=== PATIENT | female | born 1965 | race Caucasian/White ===

== ENCOUNTER 2017-12-31 15:54 | Outpatient (REF) | payer MEDICAID, SELFPAY ==
[2017-12-31 20:58] LABS: ALT 169 U/L (12-78); AST 60 U/L (15-37); Albumin 4.2 g/dL (3.4-5.0); Alkaline Phosphatase 85 U/L (46-116); Anion Gap 7.9 mmol/L (3-11); BUN 18 mg/dL (7-18); Bilirubin, Total 0.3 mg/dL (0.2-1.0); CO2 30.1 mmol/L (21.0-32.0); CREATININE 0.74 mg/dL (0.55-1.02); Calcium 9.5 mg/dL (8.5-10.1); Chloride 102 mmol/L (98-107); Glucose 135 mg/dL (70-100); Potassium 4.2 mmol/L (3.5-5.1); Sodium 140 mmol/L (136-145); TSH 0.74 uIU/mL (0.358-3.74)
== END 2017-12-31 16:14 ==
LOC: NCHCN 15:54
PROVIDERS: PCP Physician Assistant Medical; Visit Provider Physician Assistant Medical
DX: E03.9 Hypothyroidism, unspecified (principal); K76.0 Fatty (change of) liver, not elsewhere classified
CPT/HCPCS: 80053; 84443

== ENCOUNTER 2018-02-12 14:30 | Outpatient (REF) | payer MEDICAID, SELFPAY ==
[2018-02-12 22:40] LABS: ALT 134 U/L (12-78); AST 50 U/L (15-37); Albumin 4.3 g/dL (3.4-5.0); Alkaline Phosphatase 75 U/L (46-116); Bilirubin, Direct 0.11 mg/dL (0.00-0.20); Bilirubin, Total 0.4 mg/dL (0.2-1.0); Total Protein 7.2 g/dL (6.4-8.2)
== END 2018-02-12 14:50 ==
LOC: NCHCN 14:30
PROVIDERS: PCP Physician Assistant Medical; Visit Provider Physician Assistant Medical
DX: K76.0 Fatty (change of) liver, not elsewhere classified (principal); E78.2 Mixed hyperlipidemia
CPT/HCPCS: 80076

== ENCOUNTER 2018-04-15 12:46 | Outpatient (REF) | payer MEDICAID, SELFPAY ==
[2018-04-15 21:13] LABS: ALT 171 U/L (12-78); AST 61 U/L (15-37); Albumin 4.5 g/dL (3.4-5.0); Alkaline Phosphatase 96 U/L (46-116); Anion Gap 8.9 mmol/L (3-11); BUN 22 mg/dL (7-18); Bilirubin, Total 0.4 mg/dL (0.2-1.0); CO2 31.1 mmol/L (21.0-32.0); CREATININE 1.03 mg/dL (0.55-1.02); Calcium 10.1 mg/dL (8.5-10.1); Chloride 101 mmol/L (98-107); Cholesterol 230 mg/dL (50-200); Estimated GFR 56.27 (mL/min/1.73m2); Glucose 148 mg/dL (70-100); HDL Cholesterol 55 mg/dL (40-60); LDL CHOLESTEROL 142 mg/dL (<100); Potassium 4.7 mmol/L (3.5-5.1); Sodium 141 mmol/L (136-145); Total Protein 7.9 g/dL (6.4-8.2); Triglyceride 187 mg/dL (30-150)
== END 2018-04-15 13:06 ==
LOC: NCHCN 12:46
PROVIDERS: PCP Physician Assistant Medical; Visit Provider Physician Assistant Medical
DX: E78.2 Mixed hyperlipidemia (principal)
CPT/HCPCS: 80053; 80061; 83721

== ENCOUNTER 2018-07-27 15:21 | Outpatient (REF) | payer MEDICAID, SELFPAY | END 2018-07-27 15:41 | LOC: NCHCN 15:21 | PROVIDERS: PCP Physician Assistant Medical; Visit Provider Nurse Practitioner Family | DX: J02.9 Acute pharyngitis, unspecified (principal) | CPT/HCPCS: 87070 ==

== ENCOUNTER 2018-09-23 17:02 | Outpatient (REF) | payer MEDICAID, SELFPAY ==
[2018-09-23 20:21] LABS: ALT 199 U/L (12-78); AST 116 U/L (15-37); Albumin 4.4 g/dL (3.4-5.0); Alkaline Phosphatase 103 U/L (46-116); Anion Gap 9.9 mmol/L (3-11); BUN 17 mg/dL (7-18); Bilirubin, Total 0.3 mg/dL (0.2-1.0); CO2 26.1 mmol/L (21.0-32.0); CREATININE 0.76 mg/dL (0.55-1.02); Chloride 101 mmol/L (98-107); Glucose 205 mg/dL (70-100); Potassium 4.5 mmol/L (3.5-5.1); Sodium 137 mmol/L (136-145); TSH 0.99 uIU/mL (0.358-3.74); Total Protein 7.3 g/dL (6.4-8.2)
[2018-09-25 13:29] LABS: GGT 304 U/L (5-55)
== END 2018-09-23 17:22 ==
LOC: NCHCN 17:02
PROVIDERS: PCP Physician Assistant Medical; Visit Provider Physician Assistant Medical
DX: E03.9 Hypothyroidism, unspecified (principal); I10 Essential (primary) hypertension; K76.0 Fatty (change of) liver, not elsewhere classified
CPT/HCPCS: 80053; 82977; 84443

== ENCOUNTER 2019-03-11 01:33 | Outpatient (CLI) | payer MEDICAID, SELFPAY ==
--- NOTE | 2019-03-11 08:24 | DI.MAMMO_ITS ---
EXAM: MG MAMMO SCREENING CLINICAL HISTORY: SCREENING, HEALTH MAINTENANCE EXAM, Z00.8. TECHNIQUE: Bilateral full field digital CC and MLO mammographic images were obtained with 3D tomosyn thesis and utilizing computer aided detection (CAD). COMPARISON: [id number] FINDINGS: Masses/Architectural Distortion: None seen. Microcalcifications: No suspicious pleomorphic-type are seen. Skin Thickening/Nipple Retraction: None. IMPRESSION: 1. No significant interval change with no specific features of malignancy noted. 2. Unless there is more urgent need, screening mammography is recommended, as per [employer] guidelines. BI-RADS Cat 1 - Negative Breast Density - Category B - Scattered areas of fibroglandular density A negative radiographic report should not delay biopsy if a dominant or clinically suspicious mass is present. Up to ten percent of cancers are not identified on mammography. A negative report may reinforce clinical impression. Adenosis and dense breasts may obscure an underlying neoplasm. False positive reports average 6 to 10%. Patient will receive a letter notifying them of these results.
== END 2019-03-11 01:53 ==
PROVIDERS: PCP Physician Assistant Medical; Visit Provider Physician Assistant Medical
DX: Z12.31 Encounter for screening mammogram for malignant neoplasm of breast (principal)
CPT/HCPCS: 77063; 77067

== ENCOUNTER 2019-09-08 19:02 | Outpatient (REF) | payer MEDICAID, SELFPAY ==
[2019-09-08 20:34] LABS: ALT 146 U/L (14-59); AST 62 U/L (15-37); Albumin 4.6 g/dL (3.4-5.0); Alkaline Phosphatase 90 U/L (46-116); Anion Gap 4.7 mmol/L (3-11); BUN 18 mg/dL (7-18); Bilirubin, Total 0.5 mg/dL (0.2-1.0); CO2 31.3 mmol/L (21.0-32.0); CREATININE 0.92 mg/dL (0.55-1.02); Calcium 9.7 mg/dL (8.5-10.1); Calculated LDL 118 mg/dL (<100); Chloride 103 mmol/L (98-107); Cholesterol 206 mg/dL (<200); Glucose 142 mg/dL (74-106); HDL Cholesterol 47 mg/dL (40-60); Sodium 139 mmol/L (136-145); TSH 0.58 uIU/mL (0.36-3.74); Total Protein 7.3 g/dL (6.4-8.2); Triglyceride 209 mg/dL (<150)
== END 2019-09-08 19:22 ==
LOC: NCHCN 19:02
PROVIDERS: PCP Physician Assistant Medical; Visit Provider Physician Assistant Medical
DX: E11.9 Type 2 diabetes mellitus without complications (principal); I10 Essential (primary) hypertension; K75.81 Nonalcoholic steatohepatitis (NASH)
CPT/HCPCS: 80053; 80061; 84443

== ENCOUNTER 2020-05-03 16:17 | Outpatient (REF) | payer MEDICAID, SELFPAY ==
[2020-05-05 13:42] LABS: COVID-19 RT-PCR UVMMC Result Negative (Negative)
== END 2020-05-03 16:37 ==
LOC: NCHCN 16:17
PROVIDERS: PCP Physician Assistant Medical; Visit Provider Physician Assistant Medical
DX: Z11.52 Encounter for screening for COVID-19 (principal)
CPT/HCPCS: U0003

== ENCOUNTER 2020-06-27 15:10 | Outpatient (REF) | payer MEDICAID, SELFPAY ==
[2020-06-27 15:36] LABS: Calculated LDL 117 mg/dL (<100); Cholesterol 213 mg/dL (<200); HDL Cholesterol 49 mg/dL (40-60); Triglyceride 237 mg/dL (<150)
[2020-06-27 16:57] LABS: Abs Immature Grans 0.02 10^3/uL (0.0-0.06); Absolute Basophil Count 0.04 10^3/uL (0.0-0.2); Absolute Eosinophil Count 0.27 10^3/uL (0.0-0.7); Absolute Lymphocyte Count 1.48 10^3/uL (1.2-3.4); Absolute Monocyte Count 0.23 10^3/uL (0.1-0.8); Absolute Neutrophil Count 3.04 10^3/uL (1.2-6.7); Basophils % 0.8; Eosinophils % 5.3; HGB 14.1 g/dL (11.2-15.7); Immature Grans % 0.4; Lymphocytes % 29.1; MCH 29.4 pg (27.0-33.0); MCHC 34.4 % (32.0-36.0); MCV 85.4 fL (80-95); MPV 10.2 fL (8.0-11.0); Monocytes % 4.5; Neutrophils % 59.9; Nucleated RBC 0 %; Platelet Count 289 10^3/uL (130-400); RDW 12.5 % (11.7-14.6); RDW-SD 39.4 fL; WBC 5.08 10^3/uL (4.4-10.8)
[2020-06-27 17:08] LABS: ALT 169 U/L (14-59); AST 108 U/L (15-37); Albumin 4.3 g/dL (3.4-5.0); Alkaline Phosphatase 106 U/L (46-116); Anion Gap 13.4 mmol/L (3-11); BUN 17 mg/dL (7-18); Bilirubin, Total 0.5 mg/dL (0.2-1.0); CO2 26.6 mmol/L (21.0-32.0); CREATININE 0.8 mg/dL (0.55-1.02); Calcium 9.9 mg/dL (8.5-10.1); Chloride 99 mmol/L (98-107); Glucose 214 mg/dL (74-106); Potassium 4.8 mmol/L (3.5-5.1); Sodium 139 mmol/L (136-145); Total Protein 7.4 g/dL (6.4-8.2)
== END 2020-06-27 15:11 | disposition home or self-care (01) ==
LOC: NCHCN 15:10
PROVIDERS: PCP Physician Assistant Medical; Visit Provider Physician Assistant Medical
DX: K75.81 Nonalcoholic steatohepatitis (NASH) (principal); E11.9 Type 2 diabetes mellitus without complications; R53.83 Other fatigue
CPT/HCPCS: 80053; 80061; 84443; 85025

== ENCOUNTER 2020-11-14 14:40 | Outpatient (REF) | payer MEDICAID, SELFPAY ==
[2020-11-14 21:43] LABS: Bilirubin Negative (Negative); Blood Negative (Negative); Clarity Clear (Clear); Glucose Negative (Negative); Ketones Negative (Negative); Leukocyte Esterase Negative (Negative); Nitrite Negative (Negative); Specific Gravity 1.025 (1.005-1.025); Urobilinogen 0.2 EU/dL (Up TO 0.2)
[2020-11-14 21:53] LABS: Bacteria Rare HPF (Negative); C & S Indicated? No; Casts Negative LPF (Negative); Crystals Negative HPF (Negative); Epithelial Cells Rare HPF (Negative); Mucus Negative (Negative); RBC Negative HPF (0-2); WBC Negative HPF (0-5)
== END 2020-11-14 14:41 | disposition home or self-care (01) ==
LOC: NCHCN 14:40
PROVIDERS: PCP Physician Assistant Medical; Visit Provider Physician Assistant Medical
DX: R30.0 Dysuria (principal)
CPT/HCPCS: 81003; 81015

== ENCOUNTER 2021-02-01 04:31 | Emergency (ER) | payer MEDICAID, SELFPAY ==
[2021-02-01] VITALS (41 sets, daily range): BP systolic 89–128; BP diastolic 58–103; PULSE 81–105; RESP 12–26; TEMP 36.5–36.7; O2SAT 93–98
--- NOTE | 2021-02-01 04:15 | RT.EKG_ITS ---
APPROVED REPORT Exam: Resting ECG Reason for Exam: fall, chest pain Patient Location: E HR:94 bpm ECG Measurements Heart Rate 94 AXIS KS 146 P 22 QRSd 88 QRS -31 QT 362 T [id number] QTc 454 Conclusion Sinus rhythm...normal P axis, V-rate 60- 99 Inferior infarct, old...Q >35mS, II III aVF Baseline artifact Diffuse non-specific ST changes No STEMI
--- NOTE | 2021-02-01 04:45 | DI.RAD_ITS ---
Exam(s) XR KNEE LT 3V AP,LAT,ELENA EXAM: XR KNEE LT 3V AP,LAT,ELENA CLINICAL HISTORY: trauma. TECHNIQUE: 2D digital imaging was performed. COMPARISON: No exams were available for comparison FINDINGS: AP and lateral portable views of the left knee reveal no evidence of obvious fracture but there is a joint effusion which signifies a probable internal derangement. No obvious degenerative changes. No radiopaque foreign body. IMPRESSION: DATA REPOSITORY: RADIATION DOSE DELIVERED:
--- NOTE | 2021-02-01 04:45 | DI.CT_ITS ---
Exam(s) CT HEAD CERVICAL SPINE WO EXAM: CT HEAD CERVICAL SPINE WO CLINICAL HISTORY: syncope/fall; neck pain. TECHNIQUE: Imaging Protocol: Axial computed tomography images with coronal and sagittal reformatted images were created and reviewed COMPARISON: No exams were available for comparison FINDINGS: BRAIN: There are no skull fractures nor fluid in the visualized paranasal sinuses. There is no evidence of intracranial hemorrhage, mass effect, or shift of midline structures. There are no extra-axial fluid collections. The ventricles are not enlarged or shifted and there is no blo od within the ventricular system nor within the basal cisterns. CERVICAL SPINE: There is no evidence of fracture nor listhesis. No significant prevertebral soft tissue swelling. Chronic degenerative disc disease changes are noted at C3-4 and C5-6 levels. Posterior osteophytic r idging at these levels in addition to advanced disc space narrowing. Other disc spaces exhibit mayela l height. There is no significant facet joint malalignment. No significant osseous lesions evident. IMPRESSION: No acute intracranial findings on this noninfused CT scan of the brain. No evidence of cervical spine fracture, malalignment, nor acute compromise of the cervical spinal can al. Multilevel chronic degenerative disc disease. RADIATION DOSE DELIVERED: 1,281.08mGy.cm Total DLP DATA REPOSITORY: All CT scans at this facility are submitted to the National Radiology Data Registry (NRDR) Dose Index Registry (DIR) with the [employer] ([employer]). RADIATION OPTIMIZATION: All CT scans at this facility use at least one of these dose optimization te chniques: automated exposure control; mA and/or kV adjustment per patient size (includes targeted exa ms where dose is matched to clinical indication); or iterative reconstruction.
--- NOTE | 2021-02-01 04:45 | DI.RAD_ITS ---
Exam(s) XR TIB/FIB LT EXAM: XR TIB/FIB LT CLINICAL HISTORY: trauma. TECHNIQUE: 2D digital imaging was performed. COMPARISON: No exams were available for comparison FINDINGS: Limited AP and lateral portable views reveal no evidence of fractures. No radiopaque foreign body. IMPRESSION: DATA REPOSITORY: RADIATION DOSE DELIVERED:
--- NOTE | 2021-02-01 04:45 | W.ED.GENAD ---
Discharge Plan Disposition Patient Disposition: HOME Condition: Stable Discharge Details Clinical Impression: Syncope, Abdominal cramping, Injury of knee, left, Hypomagnesemia Primary Care Provider: Ramona Cruz ED Provider: Shaun Nagy Home Meds and New Rx's Prescriptions: Continued multivitamin [Daily Multiple] 1 EACH tablet 1 tab PO DAILY RF: 0 fluticasone propion-salmeterol [Advair Diskus] 1 EACH blister with device 1 puff Inhalation BID PRNRF: 0 loratadine [Claritin RediTabs] 10 MG tablet,disintegrating 10 mg PO DAILY RF: 0 levothyroxine [Synthroid] 100 MCG tablet 88 mcg PO DAILY RF: 0 lisinopril 10 MG tablet 10 mg PO DAILY RF: 0 gabapentin 300 MG capsule 300 mg PO BID RF: 0 metformin [Glucophage XR] 500 MG tablet extended release 24 hr 500 mg PO BID RF: 0 rosuvastatin [Crestor] 10 MG tablet 10 mg PO DAILY RF: 0 Fish Oil 1 EACH capsule 2 ea PO DAILY RF: 0 Latuda 40 MG tablet 40 mg PO DAILY RF: 0 omeprazole 10 MG capsule,delayed release(DR/EC) 20 mg PO DAILY RF: 0 albuterol sulfate [ProAir HFA] 8.5 GM HFA aerosol inhaler 2 puff Inhalation .Q4 HRS PRNRF: 0 zolpidem 12.5 MG tablet,ext release multiphase 12.5 mg PO HS RF: 0 cholecalciferol (vitamin D3) 1,000 UNITS tablet 1 tab PO BID RF: 0 glipizide 5 mg tablet extended release 24hr 5 mg PO QHS RF: 0 lidocaine 15 GM cream 15 gm Topical HS RF: 0 Discharge Instructions Instructions: Syncope (ED) Additional Instructions: Your syncope was likely related to vasovagal event related to the GI issues and cramping you were having. Will need to wear immobilizer and weight bear as tolerated. If not improved by next week should follow up with PCP and may need MRI. Rest today. Return to ED if further syncope, chest pain, shortness of breath, neurological changes, other concerns. Referrals: Ramona Cruz PA [Primary Care Provider] - Medical Decision Making <Zbigniew Peguero MD - Last Filed: 02/01/21 07:48> Patient presenting to the ED status post syncope with related abdominal cramping and diarrhea. Syncope seems vagal in nature. EKG is sinus rhythm with some artifact nonspecific ST changes throughout. No STEMI present. Patient currently asymptomatic other than left knee and lower leg pain from when she slipped at home. She has no headache and a normal neurologic exam. Her abdomen is completely benign. Vital signs are normal with good pulses throughout. Mild lower C-spine tenderness with palpation. We will plan CT scan of head and cervical spine as well as x-ray of left knee and tib-fib. Check laboratory studies. Hydrate and monitor. Plan repeat troponin and EKG in 3 hours. Labs look good except magnesium a little low so replaced. Unlikely to have precipitated syncope. Head and c-spine CT without traumatic injury. X-rays reviewed by me and appear negative. Radiology read still pending. If negative and still unable to bear weight will need immobilizer and crutches and follow up with PCP. Repeat EKG and troponin at 8am. Remains stable. Suspect syncope related to vagal event from abdominal symptoms. Patient will be signed out to oncoming provider. Lab Data Lab results reviewed: Yes I reviewed the patient's lab results. ECG Data Attestation: I personally reviewed and interpreted this ECG (s) as follows: Prior ECG tracings: not available for review Interpretation: see EKG <Shaun Nagy MD - Last Filed: 02/01/21 08:40> pt signed out to me with plan on discharge if negative ekg and troponin which are unchanged, she is stable and has no symptoms now. Suspect vasovagal episode, advised to f/u with pcp if knee pain continues. she has no significant sweling or deformity and can fully range so doubt tibial plateau fracture. Return precautions given Lab Data Lab results reviewed: Yes I reviewed the patient's lab results. ECG Data Attestation: I personally reviewed and interpreted this ECG (s) as follows: Prior ECG tracings: available for review Interpretation: 2nd ekg shows sinus rhythm, rate of 89, no acute st t wave ischemic findings HPI <Zbigniew Peguero MD - Last Filed: 02/01/21 07:48> General Mode of arrival: EMS. Date/Time Provider Initiated Documentation: 02/01/21 04:45. Limitations to Documentation: no limitations. Information obtained by: patient and RN notes reviewed. HPI Narrative: Patient presents to the ED by ambulance status post syncopal event at home. Patient reports waking up earlier this morning with abdominal cramping, nausea, gas. She felt like she was going to vomit but only had some dry heaves. She took a couple of Pepto-Bismol tablet. She was able to fall back to sleep. She woke once again with increased abdominal pain/cramping and feeling the need to have a bowel movement. She went back into the bathroom but got lightheaded and passed out before making it to the toilet. She woke to her standing over her and helping her get out of the bathtub. He checked her blood sugar which was okay. She ended up having diarrhea which got all over her and the floor. She slipped trying to get to the toilet and thinks she hurt her knee at that time. She subsequently became lightheaded and faint again while on the toilet. Did not pass out again. Denies having any headache or neurologic change. Denies any chest pain or shortness of breath. Has had no further abdominal pain or cramping since her episode of diarrhea which was light brown in color. She does have knee and calf pain on the left from slipping. She has had previous syncopal events in the past reportedly related to dehydration. When questioned about fainting in association with seeing blood or such, she did report episodes of lightheadedness in relation to those types of events but not actual syncope. Related Data Home Medications Medication Instructions Recorded Confirmed Fish Oil 2 ea PO DAILY 12/16/14 02/01/21 Latuda 40 mg PO DAILY tab-cap 12/16/14 02/01/21 fluticasone propion-salmeterol 1 puff INHALATION BID PRN disk 12/16/14 02/01/21 [Advair Diskus] gabapentin 300 mg PO BID 12/16/14 02/01/21 levothyroxine [Synthroid] 88 mcg PO DAILY tab-cap 12/16/14 02/01/21 lisinopril 10 mg PO DAILY tab-cap 12/16/14 02/01/21 loratadine [Claritin RediTabs] 10 mg PO DAILY tab-cap 12/16/14 02/01/21 metformin [Glucophage XR] 500 mg PO BID tab-cap 12/16/14 02/01/21 multivitamin [Daily Multiple] 1 tab PO DAILY 12/16/14 02/01/21 rosuvastatin [Crestor] 10 mg PO DAILY tab-cap 12/16/14 02/01/21 albuterol sulfate [ProAir HFA] 2 puff INHALATION .Q4 HRS PRN 07/25/15 02/01/21 cholecalciferol (vitamin D3) 1 tab PO BID 07/25/15 02/01/21 omeprazole 20 mg PO DAILY 07/25/15 02/01/21 zolpidem 12.5 mg PO HS 07/25/15 02/01/21 lidocaine 15 gm TOPICAL HS 07/18/16 02/01/21 glipizide 5 mg PO QHS 02/01/21 02/01/21 Allergies Allergy/AdvReac Type Severity Reaction Status Date / Time duloxetine HCl Allergy Intermediate Unverified 02/01/21 04:42 [From Cymbalta] codeine AdvReac Intermediate Nausea Unverified 02/01/21 04:42 lactose AdvReac Intermediate Nausea, Unverified 02/01/21 04:42 diarrhea oxycodone [From Percocet] AdvReac Intermediate Nausea Unverified 02/01/21 04:42 acetaminophen AdvReac Mild Nausea Unverified 02/01/21 04:42 [From Darvocet-N] naproxen [From Naprosyn] AdvReac Mild Nausea Unverified 02/01/21 04:42 propoxyphene napsylate AdvReac Mild Nausea Unverified 02/01/21 04:42 [From Darvocet-N] General Stated Complaint: GenMedical HARESH: 2 Review of Systems <Zbigniew Peguero MD - Last Filed: 02/01/21 07:48> Narrative: 01/18 Review of Systems completed and is negative except as stated above in HPI (Systems reviewed: Const, Eyes, ENT, Resp, CV, GI, , MSK, Skin, Neuro) PFSH <Zbigniew Peguero MD - Last Filed: 02/01/21 07:48> Medical History (Updated 02/01/21 @ 07:28 by Zbigniew Peguero MD) Asthma Bipolar 1 disorder, depressed Diabetes type 2, uncontrolled Fibromyalgia muscle pain Hyperlipidemia Hypertension Hypothyroidism Obesity (BMI 30.0-34.9) Surgical History Colonoscopy - [facility] (07/22/16) S/P tubal ligation Social History Smoking/Tobacco Use Status: Never Smoking risk assessment performed?: Yes Alcohol Intake: never Drug use: Never Substance use type: does not use Do you feel safe at home: Yes Do you feel safe in your relationship?: Yes Exam <Zbigniew Peguero MD - Last Filed: 02/01/21 07:48> Narrative Exam Narrative: Const: WDWN female in NAD. HEENT: NC/AT. Normal facial exam. Eyes: Normal conjunctiva and sclera. PERRL and EOMI. Neck: Supple. Trachea midline. Mild lower c-spine tenderness. Lungs: Normal respiratory effort. Lungs are clear. Cor: RRR without murmur/gallop. Good radial pulses. GI: Soft. NT/ND. No guarding or rebound. Back: No midline spine tenderness. Neuro: A+O x 3. Normal speech, mentation. Cranial nerves II - XII grossly intact. No gross motor or sensory deficit. Ext: No C/C/E. No deformity of LE. Pain in left knee with ROM but for most part range in tact. Able to lift leg of stretcher. NVI distal. Skin: Warm and dry without rash. Course <Zbigniew Peguero MD - Last Filed: 02/01/21 07:48> Vital Signs Vital signs: Vital Signs Temperature 97.7 F 02/01/21 04:33 Pulse 97 H 02/01/21 04:33 Respiratory Rate 18 02/01/21 04:33 Blood Pressure 120/103 H 02/01/21 04:33 Pulse Oximetry 98 02/01/21 04:33 Temperature 97.7 F 02/01/21 04:33 Pulse 97 H 02/01/21 04:33 Respiratory Rate 18 02/01/21 04:33 Blood Pressure 120/103 H 02/01/21 04:33 Blood Pressure Position Supine 02/01/21 04:33 Pulse Oximetry 98 02/01/21 04:33 Oxygen Delivery Method Room Air 02/01/21 04:33 Oxygen Flow Rate 0 02/01/21 04:33 Pain Level 6 02/01/21 04:33 Sign Out <Zbigniew Peguero MD - Last Filed: 02/01/21 07:48> Sign Out Data: Sign Out Comment: pending repeat ekg/trop Last updated by Zbigniew Peguero MD at 02/01/21 07:53
[2021-02-01 05:06] LABS: Abs Immature Grans 0.03 10^3/uL (0.0-0.06); Absolute Basophil Count 0.08 10^3/uL (0.0-0.2); Absolute Eosinophil Count 0.21 10^3/uL (0.0-0.7); Absolute Lymphocyte Count 2.89 10^3/uL (1.2-3.4); Absolute Neutrophil Count 6.73 10^3/uL (1.2-6.7); Basophils % 0.8; HCT 43.5 % (36.0-46.0); HGB 14.3 g/dL (11.2-15.7); Immature Grans % 0.3; Lymphocytes % 27.7; MCH 28.7 pg (27.0-33.0); MCHC 32.9 % (32.0-36.0); MCV 87.3 fL (80-95); MPV 9.4 fL (8.0-11.0); Monocytes % 4.8; Neutrophils % 64.4; Nucleated RBC 0 %; Platelet Count 353 10^3/uL (130-400); RBC 4.98 10^6/uL (3.93-5.22); RDW 12.6 % (11.7-14.6); RDW-SD 40.3 fL; WBC 10.44 10^3/uL (4.4-10.8)
[2021-02-01 05:22] LABS: ALT 98 U/L (14-59); AST 44 U/L (15-37); Albumin 3.8 g/dL (3.4-5.0); Alkaline Phosphatase 83 U/L (46-116); BUN 17 mg/dL (7-18); Bilirubin, Total 0.3 mg/dL (0.2-1.0); CREATININE 1.1 mg/dL (0.55-1.02); Calcium 9.7 mg/dL (8.5-10.1); Chloride 102 mmol/L (98-107); Estimated GFR 51.57 (mL/min/1.73m2); Glucose 201 mg/dL (74-106); Magnesium 1.6 mg/dL (1.8-2.4); Sodium 141 mmol/L (136-145); Total Protein 7.3 g/dL (6.4-8.2)
[2021-02-01 05:23] LABS: Troponin I < 0.05 ng/mL (<0.06)
[2021-02-01] MEDS: Normal Saline 1,000 ML 200 ML IV (05:41)
--- NOTE | 2021-02-01 05:51 | DI.VRAD_ITS ---
PROCEDURE INFORMATION: Exam: CT Head Without Contrast Exam date and time: 02/01/2021 4:59 AM Age: 55 years old Clinical indication: Other: Fall TECHNIQUE: Imaging protocol: Computed tomography of the head without contrast. Other technique: STROKE PROTOCOL was implemented. COMPARISON: No relevant prior studies available. FINDINGS: Brain: No acute intracranial hemorrhage, mass-effect, midline shift, or extra-axial collection is seen. The romano white matter differentiation appears preserved. Cerebral ventricles: The ventricular system and basilar cisterns appear appropriate in size and configuration. Paranasal sinuses: The paranasal sinuses appear well aerated. No air-fluid levels are seen. Mastoid air cells: The mastoid air cells appear well-aerated. Auditory system: The middle ear cavities appear clear. Orbital cavity: The globes and intraorbital structures appear grossly intact. Bones/joints: The bony calvarium appears intact. No depressed skull fracture is seen. There is hyperostosis frontalis interna. Soft tissues: There appears to be a small right supraorbital scalp contusion. No gross focal scalp hematoma is seen. IMPRESSION: No acute intracranial hemorrhage or depressed skull fracture. ASSESSMENT: ASPECTS ([place] Stroke Program Early CT Score) is 10. PROCEDURE INFORMATION: Exam: CT Cervical Spine Without Contrast Exam date and time: 02/01/2021 4:59 AM Age: 55 years old Clinical indication: Other: Fall TECHNIQUE: Imaging protocol: Computed tomography images of the cervical spine without contrast. COMPARISON: No relevant prior studies available. FINDINGS: Vertebrae: No acute cervical fracture or malalignment is seen. A defect in the posterior arch of C1 has a developmental appearance. C2-C3: Disc height preserved. No significant cervical stenosis or foraminal narrowing. C3-C4: Loss of disc height with posterior osteophytic ridging and uncovertebral hypertrophy on the right. No significant cervical stenosis or left-sided foraminal narrowing. Moderate right-sided foraminal narrowing. C4-C5: Disc height preserved. Small broad-based posterior disc bulge abutting the thecal sac. No significant cervical stenosis. No significant foraminal narrowing. C5-C6: Loss of disc height with endplate irregularity, anterior osteophyte formation, posterior osteophytic ridging, and bilateral uncovertebral hypertrophy. Mild central canal narrowing. Mild-moderate bilateral foraminal narrowing. C6-C7: Disc height grossly preserved. No significant cervical stenosis or foraminal narrowing. C7-T1: No significant cervical stenosis or foraminal narrowing. Soft tissues: Within the limits of the exam, no gross soft tissue fluid collection is seen in the neck. Thyroid: The thyroid gland appears grossly normal in size. There is a 1.2 cm x 1.1 cm peripherally calcified right thyroid lesion, not well characterized by the current study but possibly representing a complex cyst or thyroid nodule. Lungs: The lung apices appear clear. IMPRESSION: No acute cervical fracture or malalignment is seen. Dictated and Authenticated by: Sadiq Hamm MD. Ordering:JANET Coy MD
[2021-02-01] MEDS: MAGNESIUM SULFATE 2 GM/50 ML BAG IVPB (06:00)
[2021-02-01] MEDS: Ketorolac 15 MG/ML VIAL IVP (07:40)
--- NOTE | 2021-02-01 07:45 | RT.EKG_ITS ---
APPROVED REPORT Exam: Resting ECG Reason for Exam: 2nd ekg Patient Location: E HR:89 bpm ECG Measurements Heart Rate 89 AXIS MO 147 P 50 QRSd 94 QRS -11 QT 388 T 25 QTc 472 Conclusion Sinus rhythm...normal P axis, V-rate 60- 99
--- NOTE | 2021-02-01 07:46 | DI.VRAD_ITS ---
PROCEDURE INFORMATION: Exam: XR Left Knee Exam date and time: 02/01/2021 4:59 AM Age: 55 years old Clinical indication: Other: Fall TECHNIQUE: Imaging protocol: XR Left knee. Views: 3 views. COMPARISON: No relevant prior studies available. FINDINGS: Normal alignment. No acute fracture or dislocation. No joint effusion. IMPRESSION: No fracture. Dictated and Authenticated by: Dustin Garcia MD. Ordering:JANET Coy MD
--- NOTE | 2021-02-01 07:48 | DI.VRAD_ITS ---
PROCEDURE INFORMATION: Exam: XR Left Tibia and Fibula Exam date and time: 02/01/2021 4:59 AM Age: 55 years old Clinical indication: Other: Pain TECHNIQUE: Imaging protocol: XR Left tibia and fibula. Views: 2 views. COMPARISON: CR XR KNEE LT 3V AP,LAT,ELENA 02/01/2021 5:12 AM FINDINGS: Normal alignment. No acute fracture or dislocation. IMPRESSION: No fracture. Dictated and Authenticated by: Dustin Garcia MD. Ordering:JANET Coy MD
[2021-02-01 08:27] LABS: Troponin I < 0.05 ng/mL (<0.06)
== END 2021-02-01 09:07 | disposition home or self-care (01) ==
PROVIDERS: Emergency Medicine; Emergency Provider Emergency Medicine; PCP Physician Assistant Medical
DX: R55 Syncope and collapse (principal); W18.2XXA Fall in (into) shower or empty bathtub, initial encounter; E83.42 Hypomagnesemia; S89.82XA Other specified injuries of left lower leg, initial encounter; R10.83 Colic
CPT/HCPCS: 29505; 36415; 73562; 80053; 93005; 96361; 96365; 96366; 96375; 99285; 70450; 72125; 73590; 83735; 84484; 85025; 93010; J1885

== ENCOUNTER 2021-02-15 17:44 | Outpatient (REF) | payer MEDICAID, SELFPAY ==
[2021-02-15 20:59] LABS: HCT 39.9 % (36.0-46.0); HGB 13.3 g/dL (11.2-15.7); MCH 29.1 pg (27.0-33.0); MCHC 33.3 % (32.0-36.0); MCV 87.3 fL (80-95); MPV 9.9 fL (8.0-11.0); Platelet Count 363 10^3/uL (130-400); RBC 4.57 10^6/uL (3.93-5.22); RDW 12.4 % (11.7-14.6); RDW-SD 39.5 fL; WBC 6.01 10^3/uL (4.4-10.8)
[2021-02-16 08:22] LABS: ALT 108 U/L (14-59); AST 62 U/L (15-37); Albumin 3.8 g/dL (3.4-5.0); Alkaline Phosphatase 86 U/L (46-116); Anion Gap 7.1 mmol/L (3-11); BUN 16 mg/dL (7-18); Bilirubin, Total 0.3 mg/dL (0.2-1.0); CO2 28.9 mmol/L (21.0-32.0); CREATININE 0.8 mg/dL (0.55-1.02); Calcium 9.8 mg/dL (8.5-10.1); Chloride 103 mmol/L (98-107); Glucose 143 mg/dL (74-106); Potassium 4.9 mmol/L (3.5-5.1); Sodium 139 mmol/L (136-145); Total Protein 6.8 g/dL (6.4-8.2)
[2021-02-16 08:23] LABS: Magnesium 1.9 mg/dL (1.8-2.4)
== END 2021-02-15 17:45 | disposition home or self-care (01) ==
LOC: NCHCN 17:44
PROVIDERS: PCP Physician Assistant Medical; Visit Provider Nurse Practitioner Family
DX: N28.9 Disorder of kidney and ureter, unspecified (principal); K75.81 Nonalcoholic steatohepatitis (NASH); E11.9 Type 2 diabetes mellitus without complications
CPT/HCPCS: 80053; 85027; 83036; 83735

== ENCOUNTER 2021-05-02 00:39 | Outpatient (CLI) | payer MEDICAID, SELFPAY ==
--- NOTE | 2021-05-02 12:15 | DI.MAMMO_ITS ---
Exam(s) MAMMO SCREENING EXAM: MAMMO SCREENING CLINICAL HISTORY: SCREENING, HEALTH MAINTENANCE EXAM, Z00.8. TECHNIQUE: Bilateral full field digital CC and MLO mammographic images were obtained with 3D tomosyn thesis and utilizing computer aided detection (CAD). COMPARISON: Prior mammograms were reviewed, the most recent being March 2019. FINDINGS: There are no new spiculated masses nor malignant appearing microcalcification groups. There is no significant architectural distortion nor skin thickening-retraction. IMPRESSION: No radiographic evidence of malignancy. BI-RADS Category 1 - Negative Breast Density - Category B - Scattered areas of fibroglandular density Breast density Category C or D implies that the patient has dense breast tissue. Dense breast tissue can make it harder to find cancer on a mammogram. Dense breast tissue is also associated with an incr eased risk of breast cancer. This information about the result of the mammogram report was provided to the patient to raise their awareness. Use this report when you speak with the patient about their risks for breast cancer, which includes their family history. At that time, you may recommend additional screening tests (Ultrasoun d or MRI) as these tests may add significant information. A negative radiographic report should not delay biopsy if a dominant or clinically suspicious mass is present. Up to ten percent of cancers are not identified on mammography. A negative report may reinforce clinical impression. Adenosis and dense breasts may obscure an underlying neoplasm. False positive reports average 6 to 10%. Patient will receive a letter notifying them of these results.
== END 2021-05-02 00:59 ==
PROVIDERS: PCP Physician Assistant Medical; Visit Provider Physician Assistant Medical
DX: Z12.31 Encounter for screening mammogram for malignant neoplasm of breast (principal); Z00.00 Encounter for general adult medical examination without abnormal findings
CPT/HCPCS: 77063; 77067

== ENCOUNTER 2021-06-20 18:38 | Outpatient (REF) | payer MEDICAID, SELFPAY ==
--- NOTE | 2021-06-20 16:15 | PAPFT_PTH ---
PATIENT: Carmenza Mccoy LOC: [facility]#:[id number] AGE/SX: 55/F ROOM: RE06/20/[address]: Ramona Cruz : 1965 BED: DIS: 06/20/2021 SPEC #: [id number] RECD: 06/21/21 12:51 STATUS: OLLIE KEE #: [id number] YENNI: 06/20/21 16:[address]: Ramona Cruz DEPT: [facility] Cytology RECD BY: Carlee Mitchell Tissues: 1 - CX/ENDOCX FOR PAP SMEARS Procedures: PAP THIN PREP/UVM Screening HPV DNA PROBE Comments: [id number]
== END 2021-06-20 18:39 | disposition home or self-care (01) ==
LOC: NCHCN 18:38
PROVIDERS: PCP Physician Assistant Medical; Visit Provider Physician Assistant Medical
DX: Z12.4 Encounter for screening for malignant neoplasm of cervix (principal); Z11.51 Encounter for screening for human papillomavirus (HPV)
CPT/HCPCS: 88142; 87624

== ENCOUNTER 2021-07-17 17:25 | Outpatient (REF) | payer MEDICAID, SELFPAY ==
[2021-07-17 14:49] LABS: Hemoglobin A1C 7.9 % (<5.7)
[2021-07-17 14:57] LABS: ALT 187 U/L (14-59); AST 112 U/L (15-37); Albumin 4.4 g/dL (3.4-5.0); Alkaline Phosphatase 108 U/L (46-116); Anion Gap 10.2 mmol/L (3-11); BUN 20 mg/dL (7-18); Bilirubin, Total 0.4 mg/dL (0.2-1.0); CO2 28.8 mmol/L (21.0-32.0); CREATININE 0.9 mg/dL (0.55-1.02); Calcium 9.5 mg/dL (8.5-10.1); Calculated LDL 129 mg/dL (<100); Chloride 100 mmol/L (98-107); Cholesterol 236 mg/dL (<200); Glucose 202 mg/dL (74-106); HDL Cholesterol 55 mg/dL (40-60); Potassium 4.7 mmol/L (3.5-5.1); Sodium 139 mmol/L (136-145); TSH 2.15 uIU/mL (0.36-3.74); Total Protein 7.6 g/dL (6.4-8.2); Triglyceride 263 mg/dL (<150)
== END 2021-07-17 17:26 | disposition home or self-care (01) ==
LOC: NCHCN 17:25
PROVIDERS: PCP Physician Assistant Medical; Visit Provider Physician Assistant Medical
DX: E11.9 Type 2 diabetes mellitus without complications (principal); F34.0 Cyclothymic disorder; E03.9 Hypothyroidism, unspecified; I10 Essential (primary) hypertension; E78.2 Mixed hyperlipidemia; K75.81 Nonalcoholic steatohepatitis (NASH)
CPT/HCPCS: 80053; 80061; 83036; 84443

== ENCOUNTER 2021-07-23 23:24 | Emergency (ER) | payer MEDICAID, SELFPAY ==
[2021-07-23] VITALS (8 sets, daily range): BP systolic 178–183; BP diastolic 79–87; PULSE 86–100; RESP 13–21; TEMP 36.5; O2SAT 96–98
--- NOTE | 2021-07-23 23:30 | RT.EKG_ITS ---
APPROVED REPORT Exam: Resting ECG Reason for Exam: palpitations Patient Location: E HR:87 bpm ECG Measurements Heart Rate 87 AXIS MS 145 P 34 QRSd 90 QRS -27 QT 388 T 22 QTc 468 Conclusion Sinus rhythm...normal P axis, V-rate 60- 99 PHysician: no stemi
[2021-07-23] MEDS: Meclizine 25 MG TAB PO (23:52)
[2021-07-24] VITALS (15 sets, daily range): BP systolic 135–158; BP diastolic 63–88; PULSE 81–91; RESP 13–23; O2SAT 96–100
--- NOTE | 2021-07-24 00:01 | DI.CT_ITS ---
Exam(s) CT BRAIN NECK CTA EXAM: CT BRAIN NECK CTA CLINICAL HISTORY: dizzy, lightheaded, fhx strokes, eval for stroke. TECHNIQUE: Imaging Protocol: Axial CT angiography was performed with multi-slice acquisition and mu lti-planar and/or 3D reconstructions. CONTRAST MATERIAL: Intravenous: Omnipaque 350 Contrast volume:structured data in ml COMPARISON: No exams were available for comparison FINDINGS: CTA Neck W: Aortic arch anatomy: Bovine Anterior circulation: Both internal carotid arteries ascend with somewhat tortuous courses but normal luminal diameters. T here is mild calcified plaque at the right carotid bulb but no significant stenosis at this level nor in the proximal right ICA. In the upper neck the right internal carotid artery is quite tortuous pr ior to entering the skull base-carotid canal but without mural plaque. No significant plaque seen the left carotid bulb and proximal left ICA and the left ICA in the upper neck is also tortuous but patent without significant stenosis. Posterior circulation: Both vertebral arteries originate in conventional fashion off of the subclavian arteries and there is no evidence of clavi in artery stenosis proximal to the vertebral artery takeoff points. There is a lso no significant stenosis at the origin of the vertebral arteries off of the subclavian arteries. Both vertebral arteries are patent in the foramen transverse area with no intraluminal filling defect s nor dissection. Right vertebral artery is dominant but both vertebral arteries contribute to the f ormation of the basilar artery at the skull base. CTA Brain W: Anterior circulation: Both internal carotid arteries are patent in the skull base-carotid canals as well as in the cavernou s sinuses. Supraclinoid aspects are patent. Both A1 segments are patent as are the anterior cerebral arteries and there is no evidence of aneurys m at the level of the anterior communicating artery. Both middle cerebral arteries are patent. Posterior circulation: Basilar artery is formed by both vertebral arteries at the skull base and ascends in the midline. Di stally it gives off superior cerebellar arteries and above this level terminates as patent bilateral posterior cerebral arteries. There is no aneurysm at the tip of the basilar artery nor elsewhere in the [id number]. CT BRAIN: There is no evidence of intracranial hemorrhage, mass effect, or shift of midline structures. There are no extra-axial fluid collections. Ventricles are not enlarged or shifted. There are no ring enh ancing lesions in the brain and no abnormal meningeal enhancement. IMPRESSION: 1. Mild plaque at the right carotid bulb. No hemodynamically significant stenosis on either side in the neck.. Also patent bilateral vertebral arteries. 2. No occlusion nor significant stenosis in the intracranial arteries and no aneurysms. 3. No ring enhancing lesions in the brain nor abnormal meningeal enhancement. RADIATION DOSE DELIVERED: 1,836.32mGy.cm Total DLP DATA REPOSITORY: All CT scans at this facility are submitted to the National Radiology Data Registry (NRDR) Dose Index Registry (DIR) with the [employer] ([employer]). RADIATION OPTIMIZATION: All CT scans at this facility use at least one of these dose optimization te chniques: automated exposure control; mA and/or kV adjustment per patient size (includes targeted exa ms where dose is matched to clinical indication); or iterative reconstruction.
[2021-07-24 00:22] LABS: Abs Immature Grans 0.01 10^3/uL (0.0-0.06); Absolute Basophil Count 0.06 10^3/uL (0.0-0.2); Absolute Eosinophil Count 0.25 10^3/uL (0.0-0.7); Absolute Neutrophil Count 3.81 10^3/uL (1.2-6.7); Basophils % 0.9; Eosinophils % 3.9; HCT 40.3 % (36.0-46.0); HGB 13.5 g/dL (11.2-15.7); Immature Grans % 0.2; Lymphocytes % 31.1; MCH 28.7 pg (27.0-33.0); MCHC 33.5 % (32.0-36.0); MCV 85.7 fL (80-95); MPV 9.4 fL (8.0-11.0); Monocytes % 4.7; Neutrophils % 59.2; Platelet Count 317 10^3/uL (130-400); RDW 12.4 % (11.7-14.6); WBC 6.43 10^3/uL (4.4-10.8)
[2021-07-24 00:27] LABS: ALT 178 U/L (14-59); AST 85 U/L (15-37); Albumin 4.1 g/dL (3.4-5.0); Alkaline Phosphatase 119 U/L (46-116); Anion Gap 9.8 mmol/L (3-11); BUN 18 mg/dL (7-18); Bilirubin, Total 0.3 mg/dL (0.2-1.0); CO2 27.2 mmol/L (21.0-32.0); Calcium 9.5 mg/dL (8.5-10.1); Chloride 101 mmol/L (98-107); Estimated GFR 57.56 (mL/min/1.73m2); Glucose 218 mg/dL (74-106); Potassium 4.2 mmol/L (3.5-5.1); Sodium 138 mmol/L (136-145); Total Protein 7.6 g/dL (6.4-8.2); Troponin I < 50 ng/L (<or=60)
--- NOTE | 2021-07-24 00:28 | ED.GENADUL_ITS ---
Discharge Plan Disposition Patient Disposition: HOME Condition: Good Discharge Details Clinical Impression: Peripheral vertigo, Thyroid nodule Primary Care Provider: Ramona Cruz ED Provider: Jerman Marrero Home Meds and New Rx's Prescriptions: New meclizine 25 mg tablet 25 mg PO TID Qty: 20 0RF Continued multivitamin [Daily Multiple] 1 EACH tablet 1 tab PO DAILY 0RF loratadine [Claritin RediTabs] 10 MG tablet,disintegrating 10 mg PO DAILY 0RF levothyroxine [Synthroid] 100 MCG tablet 88 mcg PO DAILY 0RF Label Comments: 02.22.16 pt states reduced to 88mcg.HE rosuvastatin [Crestor] 10 MG tablet 10 mg PO DAILY 0RF Fish Oil 1 EACH capsule 2 ea PO DAILY 0RF Latuda 40 MG tablet 40 mg PO DAILY 0RF metformin [Glucophage XR] 500 mg tablet extended release 24 hr 750 mg PO BID 0RF lisinopril 2.5 mg tablet 2.5 mg PO DAILY 0RF Januvia 100 mg tablet 100 mg PO DAILY 0RF Victoza 2-Dany 0.6 mg/0.1 mL (18 mg/3 mL) pen injector 1.8 mg subcut DAILY 0RF gabapentin 300 mg capsule 300 mg PO TID 0RF zolpidem 12.5 mg tablet,ext release multiphase 10 mg PO HS 0RF hydroxyzine HCl 25 mg tablet 25 mg PO QHS 0RF omeprazole 10 MG capsule,delayed release(DR/EC) 20 mg PO DAILY 0RF albuterol sulfate [ProAir HFA] 8.5 GM HFA aerosol inhaler 2 puff Inhalation .Q4 HRS PRN0RF Label Comments: 07/22/16 PRN only. PG cholecalciferol (vitamin D3) 1,000 UNITS tablet 1 tab PO BID 0RF glipizide 5 mg tablet extended release 24 hr 5 mg PO BID 0RF Label Comments: TAKE ONE TABLET BY MOUTH EVERY DAY FOR 2 WEEKS THEN INCREASE TO 1 TABLET BY MOUTH TWO TIMES A DAY Discharge Instructions Instructions: Benign Paroxysmal Positional Vertigo (ED) Additional Instructions: At this time your CAT scan shows no evidence of stroke or occlusion. No mass or tumor. Your symptoms at this time appear consistent with what is called peripheral vertigo. Please take the meclizine as prescribed to help with this. Stay well-hydrated, and drink plenty of fluids. Avoid excessive salt. Additionally you do have a small thyroid nodule that was noted on the imaging. Please follow-up with your primary care provider to set up ultrasound of this nodule for further assessment. If you notice any worsening of your symptoms, or any new symptoms such as vomiting, diarrhea, fever, chills, shortness of breath, chest pain, numbness, weakness, or fainting , please return immediately to the emergency department for reevaluation. Please follow up with your primary care provider as soon as possible for reassessment and reevaluation. As always, it was a pleasure participating in your medical care today. Referrals: Ramona Cruz PA [Primary Care Provider] - Medical Decision Making This is a 55-year-old female with a past medical history of hypertension, reactive airway disease, high cholesterol, bipolar disorder, fibromyalgia, hypothyroidism, PTSD, who presents today for evaluation of lightheadedness and dizziness. Patient states that for the last week after coming back from [place] she developed lightheadedness and dizziness. She describes the lightheadedness as her head feeling like it is full of air, and the dizziness as a room spinning sensation worse when she turns her head to the left, but the dizziness seems to move from left to right. It is been present for the last week, it has not gotten better. It is worse when she moves her head, or when it gets late at night. She has not taken anything for it. Nothing makes it better otherwise. Denies any headache, chest pain or chest tightness. She denies any bandlike sensation in the chest. She denies any pleuritic chest pain, history of PE, or blood clots. She denies any personal history of stroke, but does admit to a family history of stroke. She denies any tinnitus. No visual changes, no numbness, no weakness. Of note the patient did have a fainting episode a few months ago, at that time she did injure her knee. She otherwise denies any history of fainting. She denies any current syncope. Physical exam demonstrates normal neurologic assessment. Patient does have a positive head impulse test to the left, as well as horizontal nystagmus. No vertical or rotatory nystagmus. Patient symptoms are made worse with head impulse test and moving her head in general. Symptoms at this time appear most consistent with a peripheral vertigo, however due to her family history we will get a CT/CTA of the head neck to evaluate for less likely stroke. We will rehydrate, give meclizine, monitor closely and reassess. EKG shows no significant abnormality. 1:[address] scan result showed no evidence of process. There is a small thyroid nodule which I have discussed with the patient. Patient states that at this time that she feels at least 50% better than before. The medication seems to have certainly helped. Laboratory work-up is otherwise unremarkable. Symptoms at this time appear consistent with peripheral vertigo and clinically inconsistent with cerebellar stroke. Especially with a negative CT imaging. Patient does have an elevation in her AST and ALT, however this is chronic and not acute. Troponin normal. EKG benign. With the patient's notable improvement of her symptoms, and her otherwise unremarkable assessment and she feels she is stable for discharge. Will give meclizine for home use. Discussed red flags which present. I have extensively reviewed the treatment plan and discharge instructions with the patient. I have addressed all patient concerns at this time. The patient was made aware of what symptoms to monitor for that would warrant a return to the emergency department. Discussed the plan with the patient, they demonstrate verbal understanding and agreement with our assessment and plan at this time. The documentation in this chart was dictated using [employer] dictation software. Please excuse any dictation errors. ANTERIOR CIRCULATION: Right internal carotid artery: The right ICA petrous segment is unremarkable. Mild calcific plaque in the cavernous segment without associated stenosis. The right ICA supraclinoid segment is unremarkable. Right middle cerebral artery: Unremarkable. No occlusion or significant stenosis. No aneurysm. Right anterior cerebral artery: Unremarkable. No occlusion or significant stenosis. No aneurysm. The anterior communicating artery is unremarkable. Left internal carotid artery: The left ICA petrous segment is unremarkable. Mild calcific plaque in the cavernous segment without associated stenosis. The left ICA supraclinoid segment is unremarkable. Left middle cerebral artery: Unremarkable. No occlusion or significant stenosis. No aneurysm. Left anterior cerebral artery: Unremarkable. No occlusion or significant stenosis. No aneurysm. POSTERIOR CIRCULATION: Right vertebral artery: Mild calcific plaque. No occlusion or significant stenosis. No aneurysm. Left vertebral artery: Mild calcific plaque. No occlusion or significant sten osis. No aneurysm. Basilar artery: Unremarkable. No occlusion or significant stenosis. No aneurysm. Right posterior cerebral artery: Unremarkable. No occlusion or significant stenosis. No aneurysm. Left posterior cerebral artery: Unremarkable. No occlusion or significant stenosis. No aneurysm. Aorta: Mild-moderate calcific atherosclerosis. Veins: No asymmetric vascular hyperdensities suggestive of thrombosis are identified on the noncontrast images. The dural venous sinuses and major cortical veins enhance appropriately without evidence of thrombosis. Brain: Minimal bilateral white matter hypodensities which are nonspecific but most commonly associated with chronic microvascular ischemia in this age group. No extra-axial fluid collections. No evidence of acute intracranial hemorrhage. No CT evidence of large territory acute or subacute intracranial ischemia/infarct. No intracranial mass lesions. No midline shift or herniation. No enhancing brain lesions or vascular malformations are identified. Cerebral ventricles: Ventricles normal. Pituitary gland and sella: Partially empty sella configuration incidentally noted. Orbital cavity: Visualized orbital contents demonstrate no acute abnormality. Bones/joints: The calvarium and visualized facial bones are intact. Hyperostosis frontalis interna incidentally noted. Mastoid air cells: Visualized mastoid air cells are clear. Soft tissues: The scalp and visualized soft tissues demonstrate no acute abnormality. Paranasal sinuses: Visualized paranasal sinuses are clear. Other findings: Mild generalized atrophy. The IACs are grossly normal. Swain- white differentiation is well maintained IMPRESSION: 1. No evidence of large vessel occlusion. No evidence of arterial dissection or aneurysm/pseudoaneurysm. 2. No acute intracranial process is evident. No intracranial hemorrhage. 3. Atrophy and mild microvascular changes consistent with age. These findings initiated a critical results reporting process per stroke protocol. An addendum will be issued at the time of clinician notification. FINDINGS: Right common carotid artery: Normal. No stenosis. No dissection or occlusion. Right internal carotid artery: Mild-moderate calcific plaque in the right carotid bulb without stenosis. Moderate tortuosity of the distal right ICA cervical segment near the skull base. No dissection or occlusion. Right external carotid artery: Normal. No stenosis. No dissection or occlusion. Left common carotid artery: Normal variant bovine arch configuration with the left common carotid artery arising from the brachiocephalic artery. No stenosis. No dissection or occlusion. Left internal carotid artery: Minimal calcific plaque in the left carotid bulb. Moderate tortuosity of the distal left ICA cervical segment near the skull base. No stenosis. No dissection or occlusion. Left external carotid artery: Normal. No stenosis. No dissection or occlusion. Right vertebral artery: Dominant right vertebral artery. Mild calcific plaque in the distal segment. No stenosis. No dissection or occlusion. Left vertebral artery: Mild calcific plaque in the distal left vertebral artery. No stenosis. No dissection or occlusion. Brachiocephalic artery: The brachiocephalic artery is unremarkable. Right subclavian artery: The right subclavian artery is unremarkable. Left subclavian artery: The left subclavian artery is unremarkable. Aorta: The visualized aortic arch demonstrates no gross abnormality although motion artifact limits assessment. No evidence of dissection or aneurysm. Thyroid: Peripherally calcified nodule in the right thyroid lobe measuring up to 16 mm craniocaudal on coronal image 46. Nonemergent thyroid ultrasound evaluation recommended. Soft tissues: No significant soft tissue swelling or hematoma. Bones/joints: Moderate disc degenerative changes C5-C6 and to a lesser degree C3-C4 with posterior marginal spurring. Lungs: The visualized pulmonary apices are clear. IMPRESSION: 1. No evidence of arterial stenosis, dissection, or aneurysm/pseudoaneurysm. 2. 16 mm peripherally calcified nodule in the right thyroid lobe. Nonemergent thyroid ultrasound assessment recommended. REFERENCES: NASCET CRITERIA. The degree of internal carotid artery stenosis is based on NASCET criteria. Normal is no stenosis. Mild is less than 50% stenosis. Moderate is 50-69% stenosis. Severe is 70% to 99% stenosis. Total occlusion is no detectable patent lumen. Thank you for allowing us to participate in the care of your patient. Dictated and Authenticated by: Rancho Ramachandran MD 07/24/2021 1:43 AM Eastern Time ([place] & [place]) HPI General Date/Time Provider Initiated Documentation: 07/23/21 23:29 . HPI Narrative: This is a 55-year-old female with a past medical history of hypertension, reactive airway disease, high cholesterol, bipolar disorder, fibromyalgia, hypothyroidism, PTSD, who presents today [facility] and dizziness. Patient states that for the last week after coming back from [place] she developed lightheadedness and dizziness. She describes the lightheadedness as her head feeling like it is full of air, and the dizziness as a room spinning sensation worse when she turns her head to the left, but the dizziness seems to move from left to right. It is been present for the last week, it has not gotten better. It is worse when she moves her head, or when it gets late at night. She has not taken anything for it. Nothing makes it better otherwise. Denies any headache, chest pain or chest tightness. She denies any bandlike sensation in the chest. She denies any pleuritic chest pain, history of PE, or blood clots. She denies any personal history of stroke, but does admit to a family history of stroke. She denies any tinnitus. No visual changes, no numbness, no weakness. Of note the patient did have a fainting episode a few months ago, at that time she did injure her knee. She otherwise denies any history of fainting. She denies any current syncope. Related Data Home Medications Medication Instructions Recorded Confirmed levothyroxine 100 mcg tablet 88 mcg PO DAILY tab-cap 12/16/14 07/11/21 (Synthroid) loratadine 10 mg disintegrating 10 mg PO DAILY tab-cap 12/16/14 07/11/21 tablet (Claritin RediTabs) lurasidone 40 mg tablet (Latuda) 40 mg PO DAILY tab-cap 12/16/14 07/11/21 multivitamin (Daily Multiple) 1 tab PO DAILY 12/16/14 07/11/21 omega-3 fatty acids-fish oil 340 2 ea PO DAILY 12/16/14 07/11/21 mg-1,000 mg capsule (Fish Oil) rosuvastatin 10 mg tablet (Crestor) 10 mg PO DAILY tab-cap 12/16/14 07/11/21 albuterol sulfate 90 mcg/actuation 2 puff INHALATION .Q4 HRS PRN 07/25/15 07/11/21 aerosol inhaler (ProAir HFA) cholecalciferol (vitamin D3) 25 1 tab PO BID 07/25/15 07/11/21 mcg (1,000 unit) tablet omeprazole 10 mg capsule,delayed 20 mg PO DAILY 07/25/15 07/11/21 release gabapentin 300 mg capsule 300 mg PO TID cap 03/21/21 07/11/21 hydroxyzine HCl 25 mg tablet 25 mg PO QHS 03/21/21 07/11/21 liraglutide 0.6 mg/0.1 mL (18 mg/3 1.8 mg SUBCUT DAILY ml 03/21/21 07/11/21 mL) subcutaneous pen injector (Victoza 2-Dany) lisinopril 2.5 mg tablet 2.5 mg PO DAILY 03/21/21 07/11/21 metformin 500 mg tablet,extended 750 mg PO BID tab-cap 03/21/21 07/11/21 release 24 hr (Glucophage XR) sitagliptin 100 mg tablet (Januvia) 100 mg PO DAILY 03/21/21 07/11/21 zolpidem 12.5 mg tablet,extended 10 mg PO HS tab 03/21/21 07/11/21 release,multiphase glipizide 5 mg tablet, extended 5 mg PO BID tab 05/08/21 07/11/21 release 24 hr meclizine 25 mg tablet 25 mg PO TID #20 tab 07/24/21 Previous Rx's Medication Instructions Recorded meclizine 25 mg tablet 25 mg PO TID #20 tab 07/24/21 Allergies Allergy/AdvReac Type Severity Reaction Status Date / Time duloxetine HCl Allergy Intermediate Unverified 07/11/21 13:37 [From Cymbalta] codeine AdvReac Intermediate Nausea Unverified 07/11/21 13:37 lactose AdvReac Intermediate Nausea, Unverified 07/11/21 13:37 diarrhea oxycodone [From Percocet] AdvReac Intermediate Nausea Unverified 07/11/21 13:37 acetaminophen AdvReac Mild Nausea Unverified 07/11/21 13:37 [From Darvocet-N] naproxen [From Naprosyn] AdvReac Mild Nausea Unverified 07/11/21 13:37 propoxyphene napsylate AdvReac Mild Nausea Unverified 07/11/21 13:37 [From Darvocet-N] General Stated Complaint: Dizzy/Sync HARESH: 3 Review of Systems All systems reviewed & are unremarkable except as noted in HPI and below PFSH All Active Problems (Updated 07/24/21 @ 01:52 by Jerman Marrero DO) Peripheral vertigo (Acute) Thyroid nodule (Acute) Acute lateral meniscus tear of left knee (Acute 02/01/21) Acute medial meniscus tear of left knee (Acute 02/01/21) Left ACL tear (Acute 02/01/21) Nonalcoholic steatohepatitis (Acute) Renal insufficiency (Chronic) Syncope (Chronic) Abdominal cramping (Acute) Injury of knee, left (Acute) Hypomagnesemia (Acute) Medical History Asthma Bipolar 1 disorder, depressed Diabetes type 2, uncontrolled Fibromyalgia muscle pain Hyperlipidemia Hypertension Hypothyroidism Obesity (BMI 30.0-34.9) PTSD (post-traumatic stress disorder) Surgical History Colonoscopy - MAC (07/22/16) S/P tubal ligation Social History Smoking/Tobacco Use Status: Never Smoking risk assessment performed?: Yes Alcohol Intake: never Drug use: Never Substance use type: does not use Current gender identity: female Do you feel safe at home: Yes Do you feel safe in your relationship?: Yes Exam Narrative Exam Narrative: 1.Const: Well-nourished, Well-developed, appearing stated age 2.Eyes: PERRL, no conjunctival injection, and symmetrical lids. 3.ENT: Atraumatic external nose and ears. Moist MM. Neck: Symmetric, trachea midline, No thyromegaly. 4.CVS: +S1/S2, No murmurs or gallops. Peripheral pulses 2+ and equal in all extremities. Brisk capillary refill in all extremities. 5.RESP: Unlabored respiratory effort. Clear to auscultation bilaterally. No wheezes rales or rhonchi 6.GI: Soft, Nontender/Nondistended, No hepatosplenomegaly. No guarding or rebound. 7.MSK: Normocephalic/Atraumatic, Extremities w/o deformity or ttp No cyanosis or clubbing, Normal movement of all extremities 8.Skin: Warm, Dry. No rashes or lesions. 9.Neuro: [employer] II-XII grossly intact. Sensation grossly intact, no focal neurologic deficits. All 6 cardinal planes of vision are fully intact. No evidence of rotatory or vertical nystagmus. The patient demonstrated a normal [id number], good dexterity. There was no evidence of dysdiadochokinesia. Patient was able to ambulate without difficulty. There was no wide-based gait. [id number] test was limited secondary to the patient's pain in her left knee from previous meniscal tear. Sensation was intact bilaterally as well as muscle strength bilaterally for all extremities. Patient was able to verbalize butter cup with no slurring, or miss pronunciation. Cerebellar function testing is normal. The patient demonstrates a stable hints exam with no findings concerning for a central event. No vertical nystagmus. The head impulse test is positive with brisk motions of the left, negative reports motion to the right Normal test of skew. No suggestion of a central cerebellar event. Patient does have horizontal nystagmus. It is fatigable. 10.Psych: (AAO) x3. Appropriate mood and affect Course Vital Signs Vital signs: Vital Signs Temperature 36.5 C 07/23/21 23:27 Pulse 92 H 07/23/21 23:27 Respiratory Rate 18 07/23/21 23:27 Blood Pressure 181/87 H 07/23/21 23:27 Pulse Oximetry 97 07/23/21 23:27 Temperature 36.5 C 07/23/21 23:27 Temperature Source Tympanic 07/23/21 23:27 Pulse 92 H 07/23/21 23:27 Respiratory Rate 18 07/23/21 23:27 Respiratory Effort 07/23/21 23:31 Respiratory Depth Normal 07/23/21 23:31 Respiratory Pattern Normal 07/23/21 23:31 Blood Pressure 181/87 H 07/23/21 23:27 Blood Pressure Position Supine 07/23/21 23:27 Pulse Oximetry 97 07/23/21 23:27 Oxygen Delivery Method Room Air 07/23/21 23:27 Oxygen Flow Rate 0 07/23/21 23:27 Pain Level 0 07/23/21 23:27 Lab/Test Results Lab/Test Results: Laboratory Tests Range/Units 07/24/21 07/24/21 07/24/21 00:07 00:07 00:15 WBC Cancelled 6.43 RBC Cancelled 4.70 Hgb Cancelled 13.5 Hct Cancelled 40.3 MCV Cancelled 85.7 MCH Cancelled 28.7 MCHC Cancelled 33.5 RDW Cancelled 12.4 Plt Count Cancelled 317 MPV Cancelled 9.4 Immature Gran % Cancelled 0.2 Neutrophils % Cancelled 59.2 Band Neutrophils % Cancelled Lymphocytes % Cancelled 31.1 Atypical Lymphs % Cancelled Monocytes % Cancelled 4.7 Eosinophils % Cancelled 3.9 Basophils % Cancelled 0.9 Metamyelocytes % Cancelled Myelocytes % Cancelled Promyelocytes % Cancelled Other Cells % Cancelled Nucleated RBC % Cancelled 0.0 Absolute Neutrophils Cancelled 3.81 Absolute Lymphocytes Cancelled 2.00 Absolute Monocytes Cancelled 0.30 Absolute Eosinophils Cancelled 0.25 Absolute Basophils Cancelled 0.06 RBC Morphology Cancelled Polychromasia Cancelled Hypochromasia Cancelled Poikilocytosis Cancelled Basophilic Stippling Cancelled Anisocytosis Cancelled Microcytosis Cancelled Macrocytosis Cancelled Spherocytes Cancelled Tear Drop Cells Cancelled Ovalocytes Cancelled Stomatocytes Cancelled Rodriguez-[place] Bodies Cancelled Marco Cells/Echinocytes Cancelled Acanthocytes (Spur) Cancelled Schistocytes Cancelled Sodium (136-145) mmol/L 138 Potassium (3.5-5.1) mmol/L 4.2 Chloride (98-107) mmol/L 101 Carbon Dioxide (21.0-32.0) mmol/L 27.2 Anion Gap (3-11) mmol/L 9.8 BUN (7-18) mg/dL 18 Creatinine (0.55-1.02) mg/dL 1.0 Estimated GFR/1.73 m2 (mL/min/1.73m2) 57.56 Glucose (74-106) mg/dL 218 H Calcium (8.5-10.1) mg/dL 9.5 Total Bilirubin (0.2-1.0) mg/dL 0.3 AST (15-37) U/L 85 H ALT (14-59) U/L 178 H Alkaline Phosphatase (46-116) U/L 119 H Troponin I (<or=60) ng/L < 50 Total Protein (6.4-8.2) g/dL 7.6 Albumin (3.4-5.0) g/dL 4.1
[2021-07-24] MEDS: Normal Saline 1,000 ML 1000 ML IV (00:36)
[2021-07-24] MEDS: Omnipaque 350 MG/ML 100 ML BTL IJ (00:40)
--- NOTE | 2021-07-24 01:46 | DI.VRAD_ITS ---
Addendum created by Rancho Ramachandran MD on 07/24/2021 1:45:41 AM EDT: Addendum: THIS REPORT CONTAINS FINDINGS THAT MAY BE CRITICAL TO PATIENT CARE. The findings were verbally communicated via telephone conference with JODEE DELAROSA at 1:45 AM EDT on 07/24/2021. The findings were acknowledged and understood. Initial report created on 07/24/2021 1:43:12 AM EDT: PROCEDURE INFORMATION: Exam: CT Angiography Head With Contrast, Arteriography Exam date and time: 07/24/2021 12:42 AM Age: 55 years old Clinical indication: Dizziness and giddiness; Patient HX: Dizzy, lightheaded, fhx strokes, eval for stroke TECHNIQUE: Imaging protocol: Computed tomography angiography of the head with contrast. Exam focused on the arteries. 3D rendering (Not supervised by radiologist): MIP and/or 3D reconstructed images were created by the technologist. Total images: [id number] Radiation optimization: All CT scans at this facility use at least one of these dose optimization techniques: automated exposure control; mA and/or kV adjustment per patient size (includes targeted exams where dose is matched to clinical indication); or iterative reconstruction. Contrast material: OMNIPAQUE 350; Contrast volume: 85 ml; Contrast route: INTRAVENOUS (IV); COMPARISON: CT HEAD CERVICAL SPINE WO 02/01/2021 5:12 AM FINDINGS: ANTERIOR CIRCULATION: Right internal carotid artery: The right ICA petrous segment is unremarkable. Mild calcific plaque in the cavernous segment without associated stenosis. The right ICA supraclinoid segment is unremarkable. Right middle cerebral artery: Unremarkable. No occlusion or significant stenosis. No aneurysm. Right anterior cerebral artery: Unremarkable. No occlusion or significant stenosis. No aneurysm. The anterior communicating artery is unremarkable. Left internal carotid artery: The left ICA petrous segment is unremarkable. Mild calcific plaque in the cavernous segment without associated stenosis. The left ICA supraclinoid segment is unremarkable. Left middle cerebral artery: Unremarkable. No occlusion or significant stenosis. No aneurysm. Left anterior cerebral artery: Unremarkable. No occlusion or significant stenosis. No aneurysm. POSTERIOR CIRCULATION: Right vertebral artery: Mild calcific plaque. No occlusion or significant stenosis. No aneurysm. Left vertebral artery: Mild calcific plaque. No occlusion or significant stenosis. No aneurysm. Basilar artery: Unremarkable. No occlusion or significant stenosis. No aneurysm. Right posterior cerebral artery: Unremarkable. No occlusion or significant stenosis. No aneurysm. Left posterior cerebral artery: Unremarkable. No occlusion or significant stenosis. No aneurysm. Aorta: Mild-moderate calcific atherosclerosis. Veins: No asymmetric vascular hyperdensities suggestive of thrombosis are identified on the noncontrast images. The dural venous sinuses and major cortical veins enhance appropriately without evidence of thrombosis. Brain: Minimal bilateral white matter hypodensities which are nonspecific but most commonly associated with chronic microvascular ischemia in this age group. No extra-axial fluid collections. No evidence of acute intracranial hemorrhage. No CT evidence of large territory acute or subacute intracranial ischemia/infarct. No intracranial mass lesions. No midline shift or herniation. No enhancing brain lesions or vascular malformations are identified. Cerebral ventricles: Ventricles normal. Pituitary gland and sella: Partially empty sella configuration incidentally noted. Orbital cavity: Visualized orbital contents demonstrate no acute abnormality. Bones/joints: The calvarium and visualized facial bones are intact. Hyperostosis frontalis interna incidentally noted. Mastoid air cells: Visualized mastoid air cells are clear. Soft tissues: The scalp and visualized soft tissues demonstrate no acute abnormality. Paranasal sinuses: Visualized paranasal sinuses are clear. Other findings: Mild generalized atrophy. The IACs are grossly normal. Swain-white differentiation is well maintained. ASPECTS score is 10 IMPRESSION: 1. No evidence of large vessel occlusion. No evidence of arterial dissection or aneurysm/pseudoaneurysm. 2. No acute intracranial process is evident. No intracranial hemorrhage. 3. Atrophy and mild microvascular changes consistent with age. These findings initiated a critical results reporting process per stroke protocol. An addendum will be issued at the time of clinician notification. PROCEDURE INFORMATION: Exam: CT Angiography Neck With Contrast Exam date and time: 07/24/2021 12:42 AM Age: 55 years old Clinical indication: Dizziness and giddiness; Patient HX: Dizzy, lightheaded, fhx strokes, eval for stroke TECHNIQUE: Imaging protocol: Computed tomography angiography of the neck with contrast. 3D rendering (Not supervised by radiologist): MIP and/or 3D reconstructed images were created by the technologist. Radiation optimization: All CT scans at this facility use at least one of these dose optimization techniques: automated exposure control; mA and/or kV adjustment per patient size (includes targeted exams where dose is matched to clinical indication); or iterative reconstruction. Contrast material: OMNIPAQUE 350; Contrast volume: 85 ml; Contrast route: INTRAVENOUS (IV); COMPARISON: CT HEAD CERVICAL SPINE WO 02/01/2021 5:12 AM FINDINGS: Right common carotid artery: Normal. No stenosis. No dissection or occlusion. Right internal carotid artery: Mild-moderate calcific plaque in the right carotid bulb without stenosis. Moderate tortuosity of the distal right ICA cervical segment near the skull base. No dissection or occlusion. Right external carotid artery: Normal. No stenosis. No dissection or occlusion. Left common carotid artery: Normal variant bovine arch configuration with the left common carotid artery arising from the brachiocephalic artery. No stenosis. No dissection or occlusion. Left internal carotid artery: Minimal calcific plaque in the left carotid bulb. Moderate tortuosity of the distal left ICA cervical segment near the skull base. No stenosis. No dissection or occlusion. Left external carotid artery: Normal. No stenosis. No dissection or occlusion. Right vertebral artery: Dominant right vertebral artery. Mild calcific plaque in the distal segment. No stenosis. No dissection or occlusion. Left vertebral artery: Mild calcific plaque in the distal left vertebral artery. No stenosis. No dissection or occlusion. Brachiocephalic artery: The brachiocephalic artery is unremarkable. Right subclavian artery: The right subclavian artery is unremarkable. Left subclavian artery: The left subclavian artery is unremarkable. Aorta: The visualized aortic arch demonstrates no gross abnormality although motion artifact limits assessment. No evidence of dissection or aneurysm. Thyroid: Peripherally calcified nodule in the right thyroid lobe measuring up to 16 mm craniocaudal on coronal image 46. Nonemergent thyroid ultrasound evaluation recommended. Soft tissues: No significant soft tissue swelling or hematoma. Bones/joints: Moderate disc degenerative changes C5-C6 and to a lesser degree C3-C4 with posterior marginal spurring. Lungs: The visualized pulmonary apices are clear. IMPRESSION: 1. No evidence of arterial stenosis, dissection, or aneurysm/pseudoaneurysm. 2. 16 mm peripherally calcified nodule in the right thyroid lobe. Nonemergent thyroid ultrasound assessment recommended. REFERENCES: NASCET CRITERIA. The degree of internal carotid artery stenosis is based on NASCET criteria. Normal is no stenosis. Mild is less than 50% stenosis. Moderate is 50-69% stenosis. Severe is 70% to 99% stenosis. Total occlusion is no detectable patent lumen. Dictated and Authenticated by: Rancho Ramachandran MD. Ordering:ARTEMIO Stoll MD
[2021-07-24] MEDS: Meclizine 25 MG TAB 50 MG PO (02:26)
== END 2021-07-24 02:41 | disposition home or self-care (01) ==
PROVIDERS: Emergency Provider Student in an Organized Health Care Education/Training Program; PCP Physician Assistant Medical
DX: H81.392 Other peripheral vertigo, left ear (principal); Z82.3 Family history of stroke; R00.2 Palpitations
CPT/HCPCS: 70496; 70498; 80053; 93005; 96360; 99285; 84484; 85025; 93010; 99284; J3490

== ENCOUNTER 2021-08-13 01:51 | Outpatient (RCR) | payer MEDICAID, SELFPAY ==
--- NOTE | 2021-08-13 13:00 | HOLTER_ITS ---
APPROVED REPORT Conclusion This is a 24-hour Holter monitor ordered for palpitations Predominant rhythm was sinus with an average heart rate of 81. Minimum was 68, maximum 121 There were very rare isolated premature ventricular contractions There were no supraventricular dysrhythmias There was no atrial fibrillation, no high-grade AV block, no pauses greater than 3 seconds Patient symptoms were reported which corresponded to sinus rhythm
== END 2021-09-04 23:59 | disposition home or self-care (01) ==
LOC: RT 01:51
PROVIDERS: PCP Physician Assistant Medical; Visit Provider Physician Assistant Medical
DX: R00.2 Palpitations (principal); R42 Dizziness and giddiness
CPT/HCPCS: 93225; 93226

== ENCOUNTER → 2021-09-14 00:33 | Outpatient (CLI) | payer MEDICAID, SELFPAY ==
--- NOTE | 2021-09-14 09:15 | DI.US_ITS ---
Exam(s) US THYROID EXAM: US THYROID CLINICAL HISTORY: RT THYROID NODULE, E04.1. TECHNIQUE: Ultrasound thyroid performed using standard protocol. COMPARISON: CT CT HEAD CERVICAL SPINE WO from 02/01/[address] BRAIN NECK CTA from 07/24/2021 FINDINGS: ISTHMUS: 3 mm RIGHT LOBE: Size: 4.1 x 1 x 1.1 cm Echogenicity: Normal. Vascularity: Normal. Nodules: There is a 1.5 x 1 x 1.1 cm slightly hyperechoic well-circumscribed solid nodule in the midp ole of the right lobe. There is peripheral calcification present. It is not taller than wide. The margins are smooth. It is consistent with a TI rads level 4 nodule. This nodule can be seen and has been stable on CT scans dating back to 02/01/2021. LEFT LOBE: Size: 3.4 x 1 x 1 cm Echogenicity: Normal. Vascularity: Normal. Nodules: None. OTHER FINDINGS: Local lymph nodes are unremarkable in appearance sonographically. IMPRESSION: 1.5 x 1 x 1.1 cm TI Rads level 4 right thyroid nodule. Due to its size, FNA is recommended. DATA REPOSITORY:
== END ==
PROVIDERS: PCP Physician Assistant Medical; Visit Provider Physician Assistant Medical
DX: E04.1 Nontoxic single thyroid nodule (principal)
CPT/HCPCS: 76536

== ENCOUNTER 2021-09-26 02:00 | Outpatient (CLI) | payer MEDICAID, SELFPAY ==
[2021-09-26 13:21] LABS: Source Nasal/Nares
[2021-09-26 15:47] LABS: COVID-19 PCR Negative (Negative)
== END 2021-09-26 02:01 | disposition home or self-care (01) ==
LOC: LBO 02:01
PROVIDERS: PCP Physician Assistant Medical; Visit Provider Student in an Organized Health Care Education/Training Program
DX: Z20.822 Contact with and (suspected) exposure to COVID-19 (principal); Z01.818 Encounter for other preprocedural examination
CPT/HCPCS: 87635

== ENCOUNTER 2021-09-28 06:18 | Day surgery (SDC) | payer MEDICAID, SELFPAY ==
[2021-09-28] VITALS (9 sets, daily range): BP systolic 106–155; BP diastolic 64–99; PULSE 70–85; RESP 11–18; TEMP 36–36.5; O2SAT 95–97; BMI 29.7
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
[2021-09-28] MEDS: Lactated Ringers 1,000 ML 100 ML IV (07:08)
[2021-09-28] MEDS: ceFAZolin 2 GM/50 ML BAG IVPB (07:53)
--- NOTE | 2021-09-28 08:33 | ANES.NERVE_ITS ---
Nerve Block Single Injection Procedure Date and Time Date Performed: 09/28/21 Procedure Start: 07:24 Location Where Procedure Performed Procedure Location: Day Surgery Unit Reason Performed: Postoperative Analgesia Requesting Provider: Jaime Schuster Timeout Performed Timeout Performed: Yes Monitoring Used ECG, Blood Pressure and SpO2 Sterility Sterility: Hand Hygiene, Surgical Cap, Surgical Mask, Sterile Gloves and Chlorhexidine Sedation Given During Procedure Sedation Given (Indicate Dose Given): Versed IV Dose:: 2 mg Patient Mental Status Patient Mental Status: Sedate with meaningful communication Nerve Block 1st Nerve Block: Laterality: Left Block Type: Femoral Needle / Catheter Used: 100mm SonoPlex II Local Anesthetic Bolus (Indicate Dose Given): Lidocaine used for local inf iltration of skin, Injected in 3-5ml increments after negative blood aspiration, Bupivacaine 0.5% Dose:: 15 ml and Exparel Dose:: 10 ml Additives (Indicate Dose Given): None Ultrasound: Sterile probe cover and gel used Ultrasound Image Saved?: Yes Nerve Stimulator: Not Used Paresthesia: None Procedure Tolerated: No Complications and Patient tolerated well Procedure Outcome: Successful Performed By: Fredis Avila
[2021-09-28] MEDS: Normal Saline 100 ML (09:21)
[2021-09-28] MEDS: Bupivacaine 0.5% Pres-Free W/EPI 10 ML VIAL (10:30)
[2021-09-28] MEDS: fentaNYL 100 MCG/2 ML VIAL IVP ×2 (10:55→11:25)
--- NOTE | 2021-09-28 11:09 | PDOC.DSDIS_ITS ---
Discharge Plan Disposition Patient Disposition: HOME Condition: Stable Discharge Details Reason For Visit: Left knee surgery Attending Provider: Jaime Schuster Primary Care Provider: Ramona Cruz Home Meds and New Rx's Prescriptions: New aspirin 81 mg tablet,delayed release (DR/EC) 81 mg PO DAILY 14 Days Qty: 14 0RF naproxen 250 mg tablet 250 - 500 mg PO BID PRNQty: 40 0RF Rx Instructions: take with a meal oxycodone 5 mg tablet 5 - 10 mg PO Q4H MDD 30 mg PRN (Reason: moderate to severe pain) Qty: 18 0RF ondansetron 4 mg tablet,disintegrating 4 mg PO Q6H PRN (Reason: nausea or vomiting) Qty: 5 0RF Continued multivitamin [Daily Multiple] 1 EACH tablet 1 tab PO DAILY levothyroxine [Synthroid] 100 MCG tablet 88 mcg PO DAILY Label Comments: 02.22.16 pt states reduced to 88mcg.HE rosuvastatin [Crestor] 10 MG tablet 10 mg PO DAILY Fish Oil 1 EACH capsule 2 ea PO DAILY Latuda 40 MG tablet 40 mg PO DAILY metformin [Glucophage XR] 500 mg tablet extended release 24 hr 750 mg PO BID lisinopril 2.5 mg tablet 2.5 mg PO DAILY Januvia 100 mg tablet 100 mg PO DAILY Victoza 2-Dany 0.6 mg/0.1 mL (18 mg/3 mL) pen injector 1.8 mg subcut DAILY gabapentin 300 mg capsule 300 mg PO TID zolpidem 12.5 mg tablet,ext release multiphase 10 mg PO HS hydroxyzine HCl 25 mg tablet 25 mg PO QHS vitamin B complex [B Complex-Vitamin B12] Tablet 1 tab PO DAILY alpha lipoic acid 300 mg capsule 300 mg PO DAILY lidocaine 5 % adhesive patch,medicated 1 patch topical DAILY Rx Instructions: leave on most painful area for up to 12 hrs omeprazole 10 MG capsule,delayed release(DR/EC) 20 mg PO DAILY albuterol sulfate [ProAir HFA] 8.5 GM HFA aerosol inhaler 2 puff Inhalation .Q4 HRS PRN Label Comments: 07/22/16 PRN only. PG cholecalciferol (vitamin D3) 1,000 UNITS tablet 1 tab PO BID glipizide 5 mg tablet extended release 24 hr 5 mg PO BID Label Comments: TAKE ONE TABLET BY MOUTH EVERY DAY FOR 2 WEEKS THEN INCREASE TO 1 TABLET BY MOUTH TWO TIMES A DAY meclizine 25 mg tablet 25 mg PO TID Qty: 20 0RF Discharge Instructions Additional Instructions: Surgery: Left knee arthroscopy with allograft ACL reconstruction, lateral meniscus repair, and synovectomy Activity: Weightbearing as tolerated. Advance range of motion as comfort allows. No knee brace or crutches needed as soon as comfortable. Recommend avoiding high-impact activities and deep squatting for 3-4 months. A physical therapy prescription will be sent electronically to start in 2 to 3 weeks. Prescriptions: Aspirin 81 mg take 1 daily to prevent a blood clot for 14 days Naproxen 250 mg take 1-2 every 12 hours with a meal as needed for moderate pain Oxycodone 5 mg take 1-2 every 4-6 hours as needed for severe pain You may use [id number] Tylenol (acetaminophen) as needed for mild pain. These pain medications may be taken all at once or in different combinations as needed. Ondansetron (Zofran) 4 mg take 1 orally dissolving tablet every 6 hours as needed for nausea or vomiting. Also, recommend Colace (docusate) as a stool softener as surgery and pain medicine cause constipation. You may try [id number] diphenhydramine (Benadryl) 25-50 mg nightly as a sleep aid Dressings: Leave dressing in place for 5 days. May then remove and leave open to air or cover incisions with Band-Aids. May shower after 7 days. Follow-up: 10-[address] Schuster Let us know right away if you develop any redness, drainage, fevers, chest pain, or trouble breathing. Do not drink alcohol or drive for at least 24 hours after anesthesia. Please call the office during business hours with any questions or concerns. Referrals: Jaime Schuster MD [ [facility] STAFF PHYSICIAN] - Discharge Orders Discharge Orders: Discharge Order (Routine); Ordered 09/28/21 Ordered By: Jaime Schuster DS: Diagnosis Discharge Diagnosis (1) Left ACL tear: Status: Acute (2) Acute medial meniscus tear of left knee: Status: Acute (3) Acute lateral meniscus tear of left knee: Status: Acute
[2021-09-28] MEDS: Ketorolac 15 MG/ML VIAL IVP (11:10)
--- NOTE | 2021-09-28 11:21 | ROE_ITS ---
Operative Note Operative Note DATE OF PROCEDURE: 09/28/21 PRE-OP DIAGNOSIS: Left knee: 1. ACL rupture 2. Medial meniscus tear 3. Lateral meniscus tear PROCEDURE: Left knee: 1. ACL reconstruction, CPT #03172: GraftLink soft tissue allograft 2. Lateral meniscus repair, CPT #07500 3. Synovectomy, CPT #58180: Suprapatellar and intercondylar SURGEON: Jaime Schuster CORPORATE GIVING MANAGER: Greer Doty ANESTHESIA TYPE: Local By Surgeon, General LMA/ETT and Primary Nerve Block Refer to Anesthesia Record ESTIMATED BLOOD LOSS: 10 TOURNIQUET TIME: 0 COMPLICATIONS: None Patient was transported to: PACU Patient's condition: stable Implants: Ar[employer]rex ACL TightRope II RT and ABS with 8x12mm cortical button GraftLink pre-sutured allograft: 9 x 68 mm Indications: Please see complete medical record for details. Findings: Exam under anesthesia: Full range of motion with valgus lower extremity alignment, stable varus valgus stress. Grossly positive Umu and pivot shift. Stable posterior drawer. Arthroscopic findings: Moderate old patellofemoral adhesions and plical bands. Significant intercondylar synovitis and scarred ACL remnant. Intact medial meniscus with no significant posterior horn or root apparent tearing. Horizontal lateral meniscus posterior horn junction tearing. 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 Procedure Description: In the operating room, general anesthesia was induced. The patient was positioned supine on the operating room table. All bony prominences were well- padded. Preoperative antibiotics were administered. The knee was prepped and draped in the usual sterile fashion. The correct patient, procedure, and side of the procedure were all verified prior to incision. Exam under anesthesia was performed. 20 cc of a bupivacaine containing epinephrine was infiltrated about the planned anteromedial, anterolateral, lateral distal femoral, and pretibial surgery sites. The standard high and tight anterolateral and anteromedial portals were established and a complete diagnostic arthroscopy was performed with relevant findings detailed above. A passport cannula was inserted in both the anteromedial and anterolateral portals. The lateral meniscus was inspected. There was a large horizontal tear involving the body and posterior horn junction near the popliteal hiatus. The superior leaflet of the tear white zone frayed tissue was resected to a stable margin using meniscal biter and mechanical shaver. The remaining superior and inferior fragments had structurally sound tissue containing the red-white zone and red zones. Given the concomitant ACL surgery, decision was made to proceed with meniscus repair over what would essentially have been subtotal meniscectomy as the horizontal tear extended to the periphery. The knee scorpion was used to pass a circumferential mini suture tape stitch at the posterior central and anterior margins of the tear and each secured using arthroscopic low-profile SMC knots with the knots directed to the superior periphery of the meniscus. There is excellent reapposition of the superior and inferior leaflets of the meniscus and stable meniscus repair. In the intercondylar area, the ACL remnant was removed leaving enough footprint on the femur and tibia to localize anatomic socket placement. A small notchplasty was performed to allow proper visualization of the back wall. The graft was measured and prepared on the back table. The TightRope II BTB and TightRope II ABS adjustable-loop cortical suspensory fixation implants were loaded on GraftLink pre-sutured soft tissue allograft. The femoral measured 9 mm and tibial ends each measured 10 mm. The graft was marked at 15 mm from each end. On the ABS side, the tensioning sutures were marked and a shuttle suture was added. The graft manually tensioned and the construct did not demonstrate any elongation. The graft was then compressed in a graft tube and covered with vancomycin soaked sponges. The femoral guide was then placed through the anterolateral portal carefully targeting the appropriate anatomic ACL origin. The outer 9 mm diameter of the guide was positioned with a few millimeters of space between the proximal and posterior articular margins. On the lateral thigh, drill guide position and angle adjusted to about 60 degree angle to the longitudinal axis of the femur in the coronal plane and 20 degree angle to the trans-epicondylar axis in the axial plane to create the most optimal femoral socket. Knife and snap were used to open the skin and IT band and placed the drill guide on bone while maintaining appropriate position on the lateral wall. The tunnel length was noted to be used for marking and passing the femoral button. The flip cutter was then drilled to the appropriate location. The drill guide malleted 7 mm into the cor angelica. The remainder of the targeting guide removed. The FlipCutter was deployed to 9 mm and retrograde reaming done to a depth of 30 mm. Bony debris was removed with the shaver. The flip cutter was then closed, withdrawn, and a FiberStick used to pass a #2 FiberWire shuttle stitch, which was withdrawn out the anterolateral portal. The tibial guide was then used to target the anatomic ACL insertion through the anteromedial portal. The drill angle adjusted to 60 degrees and a pretibial incision made. The drill guide was placed on bone, tunnel length noted, and the flip cutter drilled to the appropriate location. The drill guide malleted 7 mm into the cortex. The remainder of the targeting guide removed. The FlipCutter was deployed to 10mm and retrograde reaming done to a depth of 30 mm. Bony debris was removed with the shaver. The flip cutter was then closed, withdrawn, and a FiberStick used to pass a #2 FiberWire shuttle stitch, which was withdrawn out the anteromedial portal. The mechanical shaver was used to remove bone debris as well as chamfer and remove soft tissue from the edges of the sockets. A femoral shuttle sutures were withdrawn out the anterior medial portal. The PassPort was removed. This portal dilated to accommodate the graft size. The graft brought over to the knee and the femoral sutures shuttled out the lateral thigh and advanced until the button was near cortex. Under arthroscopic visualization with the knee slightly hyperflexed, and the button was then passed and flipped on the far cortex. Counter traction was then maintained on the tib ial side of the graft while it was carefully advanced into the knee and then about 18 mm into the femoral socket. The tibial sutures were then shuttled through the tibial tunnel and passing stitch removed while carefully noting the tensioning stitches. The graft was then dunked about 18 mm into the tibial socket. The ABS button was then loaded to the ABS loop with the safety stitches and tensioned sutures used to bring the cortical button down to bone. The graft advanced and then provisionally tensioned on both the femoral and tibial sides. The knee was then cycled 22 times and final tightening done with the knee in full extension and a moderate reverse Umu maintained. The graft position and tension were appropriate. There was no impingement in full extension. Umu exam was stable with negative pivot shift. Femoral passing sutures were removed. Backup knots were then tied on both sides and suture tails cut. The knee and all portals were copiously irrigated and then knee drained of arthroscopic fluid. 3-0 Monocryl was used to close the portals and small incisions in a buried interrupted fashion. Mastisol, Steri-Strips, Xeroform, 4 x 4 gauze, and sterile soft roll was applied. The extremity was wrapped gently with an Corey bandage. A soft knee immobilizer placed. The patient awoke from anesthesia without complication and was transferred to the recovery room in a stable condition.
[2021-09-28] MEDS: oxyCODONE 5 MG TAB PO (12:22)
--- NOTE | 2021-09-28 12:44 | W.ANESPOSTOP ---
Postoperative Evaluation Date, Time and Location Date Performed: 09/28/21 Time Performed: 12:40 Patient Location: Day Surgery Unit Vital Signs Most Recent Imported Vital Signs: Most Recent Vital Signs Temp Pulse Resp BP Pulse Ox 36.0 C L 81 14 130/80 96 09/28/21 12:24 09/28/21 12:24 09/28/21 12:24 09/28/21 12:24 09/28/21 12:24 Pain Score Most Recent Pain Score: Most Recent Pain Score Pain Level 5 09/28/21 12:24 Assessment Mental Status: Awake (Alert & Oriented to Patient Baseline) Airway and Respiratory Function: Patent airway with normal (patient baseline) respiratory exam Cardiovascular Function: Hemodynamically Stable Hydration Status: Adequately Hydrated Nausea & Vomiting: No Nausea or Vomiting Pain: Pt. Denies Any Pain Peripheral Nerve Block: Regional nerve block not resolved at time of post operative discharge
== END 2021-09-28 13:25 | disposition home or self-care (01) ==
PROVIDERS: PCP Physician Assistant Medical; Visit Provider Student in an Organized Health Care Education/Training Program
PROC: (CPT 29888; principal; 2021-09-28 07:30)
DX: S83.512A Sprain of anterior cruciate ligament of left knee, initial encounter (principal); S83.242A Other tear of medial meniscus, current injury, left knee, initial encounter; S83.282A Other tear of lateral meniscus, current injury, left knee, initial encounter; E11.65 Type 2 diabetes mellitus with hyperglycemia; J45.909 Unspecified asthma, uncomplicated; I10 Essential (primary) hypertension; X58.XXXA Exposure to other specified factors, initial encounter
CPT/HCPCS: 29888; 29882; 29876; 76942; J0690; J1100; J1885; J2250; J2405; J3010

== ENCOUNTER 2021-10-26 21:13 | Emergency (ER) | payer MEDICAID, SELFPAY ==
--- NOTE | 2021-10-26 21:09 | ED.GENADUL_ITS ---
Discharge Plan Disposition Patient Disposition: HOME Condition: Good Discharge Details Clinical Impression: Light headedness Primary Care Provider: Ramona Cruz ED Provider: Jerman Marrero Home Meds and New Rx's Prescriptions: No Action multivitamin [Daily Multiple] 1 EACH tablet 1 tab PO DAILY levothyroxine [Synthroid] 100 MCG tablet 88 mcg PO DAILY Label Comments: 02.22.16 pt states reduced to 88mcg.HE Fish Oil 1 EACH capsule 2 ea PO DAILY Latuda 40 MG tablet 40 mg PO DAILY metformin [Glucophage XR] 500 mg tablet extended release 24 hr 750 mg PO BID lisinopril 2.5 mg tablet 2.5 mg PO DAILY Januvia 100 mg tablet 100 mg PO DAILY Victoza 2-Dany 0.6 mg/0.1 mL (18 mg/3 mL) pen injector 1.8 mg subcut DAILY gabapentin 300 mg capsule 300 mg PO TID zolpidem 12.5 mg tablet,ext release multiphase 10 mg PO HS hydroxyzine HCl 25 mg tablet 25 mg PO QHS vitamin B complex [B Complex-Vitamin B12] Tablet 1 tab PO DAILY alpha lipoic acid 300 mg capsule 300 mg PO DAILY lidocaine 5 % adhesive patch,medicated 1 patch topical DAILY Rx Instructions: leave on most painful area for up to 12 hrs rosuvastatin [Crestor] 10 mg tablet 20 mg PO DAILY omeprazole 10 MG capsule,delayed release(DR/EC) 20 mg PO DAILY albuterol sulfate [ProAir HFA] 8.5 GM HFA aerosol inhaler 2 puff Inhalation .Q4 HRS PRN Label Comments: 07/22/16 PRN only. PG cholecalciferol (vitamin D3) 1,000 UNITS tablet 1 tab PO BID glipizide 5 mg tablet extended release 24hr 5 mg PO DAILY Label Comments: TAKE ONE TABLET BY MOUTH EVERY DAY FOR 2 WEEKS THEN INCREASE TO 1 TABLET BY MOUTH TWO TIMES A DAY meclizine 25 mg tablet Discharge Instructions Additional Instructions: At this time your laboratory and imaging work-up has returned normal and reassuring. Please stay well-hydrated throughout the day. Drink plenty of water. Continue to take your meclizine as directed. If you notice any worsening of your symptoms, or any new symptoms such as vomiting, diarrhea, fever, chills, shortness of breath, chest pain, numbness, weakness, or fainting , please return immediately to the emergency department for reevaluation. Please follow up with your primary care provider as soon as possible for reassessment and reevaluation. As always, it was a pleasure participating in your medical care today. Referrals: Ramona Cruz PA [Primary Care Provider] - Discharge Data Discharge Date/Time-TO BE ENTERED AT DEPARTURE: 10/27/21 02:04 Medical Decision Making <Sharmin James, - Last Filed: 10/28/21 22:27> 10/26/21 Dr. James 2129 -- 55yo F w/ a h/o?obesity, fibromyalgia, diabetes, hypertension, hyperlipidemia, hypothyroidism, reactive airway disease, bipolar disorder, PTSD with h/o Left knee surgery on 09/28/21 presents with dizziness, lightheadedness and shortness of breath this evening. EKG notes a rate of 82, sinus, no STEMI. Her vitals are within normal limits. Patient appears significantly anxious. She states she has difficulty wearing the mask because she is claustrophobic. Her oxygen saturation 97% on room air. Lungs clear bilaterally. No focal deficits. She takes her mask down repeatedly to breathe and also requests that the room door be left open due to feeling claustrophobic. Suspect most likely anxiety and may be superimposed dehydration on her chronic vertigo. As she had knee surgery under 4 weeks ago, consider PE although this appears less likely with normal heart rate and oxygen saturation. Will refer for screening labs including D-dimer. We will hold on chest imaging pending dimer results. We will give fluids and a dose of Ativan and additional meclizine. 2299 --Case endorsed to Dr. Marrero to follow-up on D-dimer. If within normal limits, refer for chest x-ray. If elevated above age-adjusted cut off, refer for CT chest. Reassess after medication for improvement of headache, nausea and dizziness. Dr. Marrero's documentation Case was signed out to me by my colleague Dr. Sharmin James. Please refer to her HPI, physical exam, assessment and plan. At time of signout we are awaiting D- dimer results, and then subsequent reassessment after imaging. D-dimer was positive. CT imaging was performed of the head and chest. CTA of the chest was negative for pulmonary embolism, CT of the head was negative for acute process. No evidence of significant abnormality on imaging. Laboratory work-up normal. On reassessment patient is feeling much better. She feels well would like to go home. She shows no evidence of focal neurologic deficit on exam. No evidence of significant dizziness.. Symptoms have resolved. Patient does state that she has been drinking her normal amount of fluid but she did spend a significant amount of time outside in the very hot weather today. Likely dehydration is a component of her symptomatology tonight. Recommend continued meclizine and fluids at home. Discussed red flags which return. I have extensively reviewed the treatment plan and discharge instructions with the patient. I have addressed all patient concerns at this time. The patient was made aware of what symptoms to monitor for that would warrant a return to the emergency department. Discussed the plan with the patient, they demonstrate verbal understanding and agreement with our assessment and plan at this time. The documentation in this chart was dictated using Appier dictation software. Please excuse any dictation errors. FINDINGS: Brain: Normal volume for age. No hemorrhage. No significant white matter disease. No edema. No midline shift or herniation. Cerebral ventricles: No ventriculomegaly. Paranasal sinuses: Imaged paranasal sinuses appropriately aerated without air- fluid levels. Mastoid air cells: No mastoid effusion. Bones/joints: Benign hyperostosis frontalis is present. No acute osseous finding. Soft tissues: No focal soft tissue abnormality. Vasculature: Vascular calcifications within the vertebral and carotid arteries are present. IMPRESSION: No acute intracranial finding. Thank you for allowing us to participate in the care of your patient FINDINGS: Pulmonary arteries: Normal. No pulmonary emboli. Aorta: Unremarkable. No aortic aneurysm. No aortic dissection. Lungs: Unremarkable. No consolidation. No masses. Pleural spaces: Unremarkable. No pneumothorax. No pleural effusion. Heart: Cardiac motion artifact is present. Lymph nodes: Unremarkable. No enlarged lymph nodes. Bones/joints: Unremarkable. No acute fracture. Soft tissues: Unremarkable. IMPRESSION: 1. No evidence of pulmonary embolus. 2. No evidence of thoracic aortic aneurysm or dissection. Thank you for allowing us to participate in the care of your patient. Dictated and Authenticated by: Peewee Butler MD 10/27/2021 1:38 AM Eastern Time ([place] & [place]) Medical Records Medical records reviewed: Yes I reviewed the patient's medical records. ECG Data Attestation: I personally reviewed and interpreted this ECG (s) as follows: Interpretation: Rate of 82, sinus, no STEMI. <Jerman Marrero, DO - Last Filed: 10/27/21 01:49> 2130 -- 55yo F w/ a h/o?obesity, fibromyalgia, diabetes, hypertension, hyperlipidemia, hypothyroidism, reactive airway disease, bipolar disorder, PTSD with h/o Left knee surgery on 09/28/21 presents with dizziness, lightheadedness and shortness of breath this evening. EKG notes a rate of 82, sinus, no STEMI. Her vitals are within normal limits. Patient appears significantly anxious. She states she has difficulty wearing the mask because she is claustrophobic. Her oxygen saturation 97% on room air. Lungs clear bilaterally. No focal deficits. She takes her mask down repeatedly due to feeling claustrophobic. She also requests that the room door be left open due to feeling claustrophobic. Suspect most likely anxiety and may be superimposed dehydration on her chronic vertigo. As she had knee surgery under 4 weeks ago, consider PE although this appears less likely with normal heart rate and oxygen saturation. Will refer for screening labs including D-dimer. We will hold on chest imaging pending dimer results. We will give fluids and a dose of Ativan and additional meclizine. 2300 --Case endorsed to Dr. Marrero to follow-up on D-dimer. If within normal limits, refer for chest x-ray. If elevated above age-adjusted cut off, refer for CT chest. Reassess after medication for improvement of headache, nausea and dizziness. Dr. Marrero's documentation Case was signed out to me by my colleague Dr. Sharmin James. Please refer to her HPI, physical exam, assessment and plan. At time of signout we are awaiting D- dimer results, and then subsequent reassessment after imaging. D-dimer was positive. CT imaging was performed of the head and chest. CTA of the chest was negative for pulmonary embolism, CT of the head was negative for acute process. No evidence of significant abnormality on imaging. Laboratory work-up normal. On reassessment patient is feeling much better. She feels well would like to go home. She shows no evidence of focal neurologic deficit on exam. No evidence of significant dizziness.. Symptoms have resolved. Patient does state that she has been drinking her normal amount of fluid but she did spend a significant amount of time outside in the very hot weather today. Likely dehydration is a component of her symptomatology tonight. Recommend continued meclizine and fluids at home. Discussed red flags which return. I have extensively reviewed the treatment plan and discharge instructions with the patient. I have addressed all patient concerns at this time. The patient was made aware of what symptoms to monitor for that would warrant a return to the emergency department. Discussed the plan with the patient, they demonstrate verbal understanding and agreement with our assessment and plan at this time. The documentation in this chart was dictated using Appier dictation software. Please excuse any dictation errors. FINDINGS: Brain: Normal volume for age. No hemorrhage. No significant white matter disease. No edema. No midline shift or herniation. Cerebral ventricles: No ventriculomegaly. Paranasal sinuses: Imaged paranasal sinuses appropriately aerated without air- fluid levels. Mastoid air cells: No mastoid effusion. Bones/joints: Benign hyperostosis frontalis is present. No acute osseous finding. Soft tissues: No focal soft tissue abnormality. Vasculature: Vascular calcifications within the vertebral and carotid arteries are present. IMPRESSION: No acute intracranial finding. Thank you for allowing us to participate in the care of your patient FINDINGS: Pulmonary arteries: Normal. No pulmonary emboli. Aorta: Unremarkable. No aortic aneurysm. No aortic dissection. Lungs: Unremarkable. No consolidation. No masses. Pleural spaces: Unremarkable. No pneumothorax. No pleural effusion. Heart: Cardiac motion artifact is present. Lymph nodes: Unremarkable. No enlarged lymph nodes. Bones/joints: Unremarkable. No acute fracture. Soft tissues: Unremarkable. IMPRESSION: 1. No evidence of pulmonary embolus. 2. No evidence of thoracic aortic aneurysm or dissection. Thank you for allowing us to participate in the care of your patient. Dictated and Authenticated by: Peewee Butler MD 10/27/2021 1:38 AM Eastern Time ([place] & [place]) HPI <Sharmin James DO - Last Filed: 10/28/21 22:27> General Mode of arrival: EMS . Date/Time Provider Initiated Documentation: 10/26/21 21:15 . Limitations to Documentation: no limitations . Information obtained by: patient . HPI Narrative: Pt is a 55yo F obesity, fibromyalgia, diabetes, hypertension, hyperlipidemia, hypothyroidism, reactive airway disease, bipolar disorder, PTSDb who presents to the ED with a complaint of dizziness and lightheadedness that started at 7 PM tonight while sitting at home. Patient states she has a history of chronic vertigo since July 2021 for which she takes meclizine usually once daily. She states her vertigo is usually spinning and occurs once nightly and is resolved with meclizine. She states the dizziness tonight felt more like lightheadedness and was not relieved with meclizine. She states 1 hour after the onset of di zziness she felt shortness of breath that felt like she could not catch a deep breath. She states this felt different than her usual anxiety attack as she usually has chest pain with her anxiety and she did not have chest pain this evening. She does admit to nausea but denies any vomiting. She does admit to diffuse aching headache that is currently 6/10 but states she has a history of migraines and this is not unusual for her. She denies any blurry vision, fever, cough, abdominal pain, diarrhea. Related Data Home Medications Medication Instructions Recorded Confirmed levothyroxine 100 mcg tablet 88 mcg PO DAILY 12/16/14 10/26/21 (Synthroid) lurasidone 40 mg tablet (Latuda) 40 mg PO DAILY 12/16/14 10/26/21 multivitamin (Daily Multiple 1 tab PO DAILY 12/16/14 10/26/21 tablet) omega-3 fatty acids-fish oil 340 2 ea PO DAILY 12/16/14 10/26/21 mg-1,000 mg capsule (Fish Oil) albuterol sulfate 90 mcg/actuation 2 puff inhalation .Q4 HRS PRN 07/25/15 10/26/21 aerosol inhaler (ProAir HFA) cholecalciferol (vitamin D3) 25 1 tab PO BID 07/25/15 10/26/21 mcg (1,000 unit) tablet omeprazole 10 mg capsule,delayed 20 mg PO DAILY 07/25/15 10/26/21 release gabapentin 300 mg capsule 300 mg PO TID 03/21/21 10/26/21 hydroxyzine HCl 25 mg tablet 25 mg PO QHS 03/21/21 10/26/21 liraglutide 0.6 mg/0.1 mL (18 mg/3 1.8 mg subcut DAILY 12/15/21 07/22/22 mL) subcutaneous pen injector (Victoza 2-Dany) lisinopril 2.5 mg tablet 2.5 mg PO DAILY 03/21/21 10/26/21 metformin 500 mg tablet,extended 750 mg PO BID 03/21/21 10/26/21 release 24 hr (Glucophage XR) sitagliptin 100 mg tablet (Januvia) 100 mg PO DAILY 03/21/21 10/26/21 zolpidem 12.5 mg tablet,extended 10 mg PO HS 03/21/21 10/26/21 release,multiphase alpha lipoic acid 300 mg capsule 300 mg PO DAILY 08/15/21 10/26/21 lidocaine 5 % topical patch 1 patch topical DAILY 08/15/21 10/26/21 vitamin B complex (B 1 tab PO DAILY 08/15/21 10/26/21 Complex-Vitamin B12 tablet) glipizide 5 mg tablet, extended 5 mg PO DAILY 10/10/21 10/26/21 release 24 hr rosuvastatin 10 mg tablet (Crestor) 20 mg PO DAILY 10/10/21 10/26/21 meclizine 25 mg tablet tab 10/26/21 Allergies Allergy/AdvReac Type Severity Reaction Status Date / Time duloxetine HCl Allergy Intermediate unknown Unverified 10/27/21 07:14 [From Cymbalta] mold Allergy Verified 10/26/21 21:27 codeine AdvReac Intermediate Nausea Unverified 10/26/21 21:27 lactose AdvReac Intermediate Nausea, Unverified 10/26/21 21:27 diarrhea oxycodone [From Percocet] AdvReac Intermediate Nausea Unverified 10/26/21 21:27 acetaminophen AdvReac Mild Nausea Unverified 10/26/21 21:27 [From Darvocet-N] naproxen [From Naprosyn] AdvReac Mild Nausea Unverified 10/26/21 21:27 propoxyphene napsylate AdvReac Mild Nausea Unverified 10/26/21 21:27 [From Darvocet-N] General Stated Complaint: Dizzy/Sync HARESH: 3 Review of Systems <Sharmin James DO - Last Filed: 10/28/21 22:27> All systems reviewed & are unremarkable except as noted in HPI and below Constitutional Constitutional: Denies chills, Denies excessive sweating, Denies fatigue, Denies fever(s), Denies weakness and Denies weight loss Eyes Eyes: Reports system reviewed and no additional complaints, except as documented and Denies blurry vision ENT Ears, Nose, Mouth, and Throat: Denies vertigo, Reports dizziness, Denies otalgia, Denies nasal congestion, Denies sore throat and Denies throat swelling Cardiovascular Cardiovascular: Denies chest pain, Denies syncope, Denies rapid heart rate and Reports dyspnea Respiratory Respiratory: Denies chest congestion, Denies cough, Denies pain on inspiration and Reports dyspnea Gastrointestinal Gastrointestinal: Denies abdominal pain, Denies diarrhea and Denies vomiting Genitourinary Genitourinary: Denies hematuria, Denies dysuria and Denies flank pain Musculoskeletal Musculoskeletal: Denies back pain and Denies joint swelling Integumentary/Breasts Skin/Breast: Denies lesions and Denies rash Neurologic Neurologic: Denies behavioral changes, Denies confusion, Denies vertigo, Reports dizziness, Denies syncope, Denies localized weakness and Denies weakness Psychiatric Psychiatric: Denies behavioral changes, Denies confusion and Denies depression Endocrine Endocrine: Denies excessive sweating and Denies fatigue Hematologic/Lymphatic Hematologic/Lymphatic: Denies easy bruising and Denies lymphadenopathy Allergic/Immunologic Allergic/Immunologic: Denies throat swelling PFSH <Sharmin James DO - Last Filed: 10/28/21 22:27> All Active Problems (Updated 10/27/21 @ 01:45 by Jerman Marrero DO) Light headedness (Acute) Migraine headache without aura (Acute) Atypical migraine (Acute) History of reconstruction of anterior cruciate ligament tear (Acute 09/28/21) ACL reconstruction with graft link soft tissue allograft Status post arthroscopy of left knee (Acute 09/28/21) s/p ACL reconstruction, lateral meniscus repair, synovectomy Syncope (Chronic) Abdominal cramping (Acute) Injury of knee, left (Acute) Hypomagnesemia (Acute) Renal insufficiency (Chronic) Nonalcoholic steatohepatitis (Acute) Left ACL tear (Acute 02/01/21) Acute lateral meniscus tear of left knee (Acute 02/01/21) Benign paroxysmal positional vertigo (Acute) Cervical vertigo (Acute) Pressure in head (Acute) Dizziness (Acute) Medical History (Updated 10/27/21 @ 01:45 by Jerman Marrero DO) Acute medial meniscus tear of left knee (02/01/21) Allergic asthma Allergic rhinitis Asthma Back pain, chronic Bipolar 1 disorder, depressed Cyclothymic disorder Diabetes type 2, uncontrolled Fatigue Fibromyalgia Fibromyalgia muscle pain GERD (gastroesophageal reflux disease) Hyperlipidemia Hyperlipidemia, mixed Hypertension Hypothyroidism Insomnia Knee pain, left Obesity Obesity (BMI 30.0-34.9) Palpitations Pt. had negative workup PTSD (post-traumatic stress disorder) Pt. denies anything as trigger Right thyroid nodule Type 2 diabetes mellitus Vertigo Surgical History (Updated 10/10/21 @ 13:02 by Kathya Llanes) Colonoscopy - MAC (07/22/16) H/O rotator cuff surgery Right H/O tubal ligation S/P tubal ligation Social History Smoking/Tobacco Use Status: Never Smoking risk assessment performed?: Yes Alcohol Intake: never Drug use: Never Substance use type: does not use Current gender identity: female Do you feel safe at home: Yes Do you feel safe in your relationship?: Yes Exam <Sharmin James DO - Last Filed: 10/28/21 22:27> Const General: cooperative and anxious Orientation: alert, awake and oriented x3 HENMT Head: normal to inspection Ears: hearing grossly normal bilaterally, external ears normal and TM's normal bilaterally General nose exam: external nose normal Face and sinus: normal facial exam Mouth: oral mucosae normal Teeth and gingiva: dentition normal Throat: posterior oropharynx normal Eyes General: appearance normal, both eyes and all related structures Eyelids: eyelids normal Pupils: PERRL EOM: EOM intact bilaterally Neck Neck: normal visual inspection Lymphatic: no lymphadenopathy noted Chest Chest: normal inspection of the chest Resp Effort & Inspection: normal respiratory effort and able to speak in complete sentences Auscultation: clear to auscultation bilaterally Cardio Rate: regular rate Rhythm: regular rhythm GI Inspection: normal to inspection Palpation: soft, not firm, no guarding, no hepatosplenomegaly, no masses and nontender Auscultation: normal bowel sounds Back/Spine/Pelvis Back: no CVA tenderness Skin General skin exam: no rashes or lesions noted Neuro General: patient alert, patient awake, patient oriented x3, moves all extremities, no meningeal signs and no focal motor deficits Cranial Nerves: CN's II-XI intact bilaterally Cognition: normal cognition Speech: speech normal Motor: muscle tone normal throughout and strength 5/5 throughout Sensory Exam: no sensory deficits noted Extrem General: normal to inspection, full ROM, capillary refill normal and no edema Psych Appearance: grossly normal Mental Status: mental status grossly normal Speech and Movement: speech and movement normal Affect: normal affect Thought Process: normal Sign Out <Sharmin James DO - Last Filed: 10/28/21 22:27> Sign Out Data: Sign Out Comment: Lightheadedness and vertigo since 7 PM. Shortness of breath since 8 PM. Has a history of chronic vertigo and anxiety. Follow-up on labs and imaging and final disposition. If work-up unremarkable and patient feels better, will plan for discharge to home with outpatient follow-up with PCP. Last updated by Sharmin James DO at 10/26/21 22:32
[2021-10-26 21:13] VITALS: BP 126/87; PULSE 82; RESP 20; TEMP 36.6; O2SAT 96
--- NOTE | 2021-10-26 21:15 | RT.EKG_ITS ---
APPROVED REPORT Exam: Resting ECG Reason for Exam: shortness of breath Patient Location: E HR:82 bpm ECG Measurements Heart Rate 82 AXIS WA 156 P 46 QRSd 96 QRS -15 QT 406 T 21 QTc 475 Conclusion Sinus rhythm...normal P axis, V-rate 60- 99 Physician: no stemi
[2021-10-26 21:22] VITALS: RESP 20
[2021-10-26 21:47] LABS: Abs Immature Grans 0.02 10^3/uL (0.0-0.06); Absolute Basophil Count 0.05 10^3/uL (0.0-0.2); Absolute Eosinophil Count 0.22 10^3/uL (0.0-0.7); Absolute Lymphocyte Count 1.32 10^3/uL (1.2-3.4); Absolute Monocyte Count 0.33 10^3/uL (0.1-0.8); Absolute Neutrophil Count 5.86 10^3/uL (1.2-6.7); Basophils % 0.6; Eosinophils % 2.8; HCT 38.7 % (36.0-46.0); Immature Grans % 0.3; Lymphocytes % 16.9; MCH 28.8 pg (27.0-33.0); MCHC 33.6 % (32.0-36.0); MCV 86 fL (80-95); MPV 9.2 fL (8.0-11.0); Monocytes % 4.2; Neutrophils % 75.2; Platelet Count 326 10^3/uL (130-400); RBC 4.52 10^6/uL (3.93-5.22); RDW 12.5 % (11.7-14.6); RDW-SD 39.1 fL
[2021-10-26 22:00] VITALS: BP 138/64; PULSE 77; RESP 18; O2SAT 98
[2021-10-26 22:02] LABS: ALT 88 U/L (14-59); AST 35 U/L (15-37); Albumin 4.5 g/dL (3.4-5.0); Alkaline Phosphatase 92 U/L (46-116); Anion Gap 10.7 mmol/L (3-11); BUN 17 mg/dL (7-18); Bilirubin, Total 0.3 mg/dL (0.2-1.0); CO2 26.3 mmol/L (21.0-32.0); CREATININE 1.1 mg/dL (0.55-1.02); Chloride 103 mmol/L (98-107); Estimated GFR 51.57 (mL/min/1.73m2); Glucose 266 mg/dL (74-106); Magnesium 1.7 mg/dL (1.8-2.4); Potassium 4.1 mmol/L (3.5-5.1); Sodium 140 mmol/L (136-145); Total Protein 7.5 g/dL (6.4-8.2); Troponin I < 50 ng/L (<or=60)
[2021-10-26] MEDS: LORazepam 1 MG TAB PO (22:36)
[2021-10-26] MEDS: Normal Saline 1,000 ML 1000 ML IV (22:37)
[2021-10-26 22:46] LABS: TSH (W/Ref FT4) 1.26 uIU/mL (0.36-3.74)
[2021-10-26 22:57] LABS: D-Dimer 669 ng/mlFEU (<500)
[2021-10-26] MEDS: Ketorolac 30 MG/ML VIAL IVP (23:11)
[2021-10-26] MEDS: MAGNESIUM SULFATE 1 GM/100 ML BAG IVPB (23:13)
--- NOTE | 2021-10-26 23:30 | DI.CT_ITS ---
Exam(s) CT HEAD WO EXAM: CT HEAD WO CLINICAL HISTORY: syncope, dizzy. TECHNIQUE: Imaging Protocol: Axial computed tomography images with coronal and sagittal reformatted images were created and reviewed COMPARISON: CT CT BRAIN NECK CTA from 07/24/2021 FINDINGS: Ventricles and Extra axial spaces: Normal in size and morphology for the patient's age. Hemorrhage: None. Cerebral parenchyma: Normal. No acute territorial infarct is identified. Midline shift: None. Brainstem/Cerebellum: Normal. Calvarium: Normal. Visualized Paranasal sinuses/Mastoids: Clear. Soft Tissues: Unremarkable. IMPRESSION: No acute intracranial process. RADIATION DOSE DELIVERED: 674.64mGy.cm Total DLP DATA REPOSITORY: All CT scans at this facility are submitted to the National Radiology Data Registry (NRDR) Dose Index Registry (DIR) with the [employer] ([employer]). RADIATION OPTIMIZATION: All CT scans at this facility use at least one of these dose optimization te chniques: automated exposure control; mA and/or kV adjustment per patient size (includes targeted exa ms where dose is matched to clinical indication); or iterative reconstruction.
--- NOTE | 2021-10-26 23:30 | DI.CT_ITS ---
Exam(s) CT CHEST PE CTA EXAM: CT CHEST PE CTA CLINICAL HISTORY: elevated dimer, near syncope. TECHNIQUE: Imaging Protocol: Axial CT angiography was performed with multi-slice acquisition and mu lti-planar and/or 3D reconstructions. CONTRAST MATERIAL: Intravenous: Omnipaque 350 contrast volume:100 mL COMPARISON: CT UPPER ABD WITH CONTRAST (P) from 08/02/[address] BRAIN NECK CTA from 07/24/2021 FINDINGS: The examination is limited due to patient motion artifact. Tracheobronchial tree: Patent where visualized. Pulmonary parenchyma: No consolidation or dominant measurable mass. No architectural distortion. Pulmonary Arteries: No evidence of filling defect to suggest pulmonary emboli. Mediastinum and Sherrie: No dominant adenopathy or fluid collection. The esophagus is unremarkable. Sm all hiatal hernia. Visualized thyroid gland: There is an 8 mm peripherally calcified nodule in the right lobe of the thy roid gland. Nonemergent thyroid ultrasound should be considered for further evaluation. Pleura: No effusion or pneumothorax. Heart: The heart is not dilated. No coronary artery calcifications are seen. No pericardial effusion. Aorta: Thoracic aorta non-dilated. No evidence of dissection. Upper abdomen: Unremarkable. Soft tissues: Unremarkable. Bones: Within normal limits for the patient's age. IMPRESSION: No evidence of pulmonary embolism, thoracic aortic dissection or aneurysm. RADIATION DOSE DELIVERED: 366.02mGy.cm Total DLP DATA REPOSITORY: All CT scans at this facility are submitted to the National Radiology Data Registry (NRDR) Dose Index Registry (DIR) with the [employer] ([employer]). RADIATION OPTIMIZATION: All CT scans at this facility use at least one of these dose optimization te chniques: automated exposure control; mA and/or kV adjustment per patient size (includes targeted exa ms where dose is matched to clinical indication); or iterative reconstruction.
[2021-10-27] MEDS: Omnipaque 350 MG/ML 100 ML BTL IJ (00:08)
--- NOTE | 2021-10-27 01:06 | DI.VRAD_ITS ---
PROCEDURE INFORMATION: Exam: CT Head Without Contrast Exam date and time: 10/26/2021 11:56 PM Age: 55 years old Clinical indication: Dizziness; Additional info: Dizzy, syncope TECHNIQUE: Imaging protocol: Computed tomography of the head without contrast. Radiation optimization: All CT scans at this facility use at least one of these dose optimization techniques: automated exposure control; mA and/or kV adjustment per patient size (includes targeted exams where dose is matched to clinical indication); or iterative reconstruction. COMPARISON: CT BRAIN NECK CTA 07/24/2021 12:42 AM FINDINGS: Brain: Normal volume for age. No hemorrhage. No significant white matter disease. No edema. No midline shift or herniation. Cerebral ventricles: No ventriculomegaly. Paranasal sinuses: Imaged paranasal sinuses appropriately aerated without air-fluid levels. Mastoid air cells: No mastoid effusion. Bones/joints: Benign hyperostosis frontalis is present. No acute osseous finding. Soft tissues: No focal soft tissue abnormality. Vasculature: Vascular calcifications within the vertebral and carotid arteries are present. IMPRESSION: No acute intracranial finding. Dictated and Authenticated by: Carrillo Delgado MD. Ordering:ARTEMIO Stoll MD
--- NOTE | 2021-10-27 01:39 | DI.VRAD_ITS ---
PROCEDURE INFORMATION: Exam: CTA Chest With Contrast Exam date and time: 10/27/2021 12:01 AM Age: 55 years old Clinical indication: Other: Syncope, elevated ddimer; Patient HX: PT states recent knee surgery; Additional info: Dizzy, syncope, elevated ddimer TECHNIQUE: Imaging protocol: Computed tomographic angiography of the chest with contrast. 3D rendering (Not supervised by radiologist): MIP and/or 3D reconstructed images were created x the technologist. It is it is to to to a Radiation optimization: All CT scans at this facility use at least one of these dose optimization techniques: automated exposure control; mA and/or kV adjustment per patient size (includes targeted exams where dose is matched to clinical indication); or iterative reconstruction. Contrast material: OMNI 350; Contrast volume: 100 ml; Contrast route: INTRAVENOUS (IV); COMPARISON: CT BRAIN NECK CTA 07/24/2021 12:42 AM FINDINGS: Pulmonary arteries: Normal. No pulmonary emboli. Aorta: Unremarkable. No aortic aneurysm. No aortic dissection. Lungs: Unremarkable. No consolidation. No masses. Pleural spaces: Unremarkable. No pneumothorax. No pleural effusion. Heart: Cardiac motion artifact is present. Lymph nodes: Unremarkable. No enlarged lymph nodes. Bones/joints: Unremarkable. No acute fracture. Soft tissues: Unremarkable. IMPRESSION: 1. No evidence of pulmonary embolus. 2. No evidence of thoracic aortic aneurysm or dissection. Dictated and Authenticated by: Peewee Butler MD. Ordering:ARTEMIO Stoll MD
== END 2021-10-27 02:04 | disposition home or self-care (01) ==
PROVIDERS: Physician Assistant; Emergency Provider Student in an Organized Health Care Education/Training Program; PCP Physician Assistant Medical
DX: R42 Dizziness and giddiness (principal); I10 Essential (primary) hypertension; E11.9 Type 2 diabetes mellitus without complications; F40.240 Claustrophobia; Z79.84 Long term (current) use of oral hypoglycemic drugs
CPT/HCPCS: 71275; 80053; 93005; 96365; 96375; 99285; 70450; 83735; 84443; 84484; 85025; 85379; 93010; 99284; J1885; J3475; J3490

== ENCOUNTER 2022-02-12 11:19 | Outpatient (REF) | payer MEDICAID, SELFPAY ==
[2022-02-12 15:40] LABS: Calculated LDL 108 mg/dL (<100); Cholesterol 212 mg/dL (<200); HDL Cholesterol 64 mg/dL (40-60); Triglyceride 202 mg/dL (<150)
== END 2022-02-12 11:20 | disposition home or self-care (01) ==
LOC: NCHCN 11:19
PROVIDERS: PCP Physician Assistant Medical; Visit Provider Physician Assistant Medical
DX: E78.2 Mixed hyperlipidemia (principal)
CPT/HCPCS: 80061

== ENCOUNTER → 2022-02-14 02:14 | Outpatient (CLI) | payer MEDICAID, SELFPAY ==
--- NOTE | 2022-02-14 | DI.US_ITS ---
APPROVED REPORT EXAM: Comprehensive 2D, Doppler, and color-flow Echocardiogram Patient Location: Out-Patient Level Vial Inspector: Thi Martinez RDCS (AE) Indications: Heart murmur Other Information Study Quality: Adequate Conclusion Normal left ventricular wall thickness and chamber size. Estimated ejection fraction is 60%. Wall m otion is normal Normal right ventricular size and systolic function Both atria are normal in size There is no structural or hemodynamically significant valvular disease Wall motion Left Ventricle The left ventricle is normal size. The left ventricular systolic function is normal. The left ventric ular ejection fraction is within the normal range. There is normal left ventricular wall thickness. T here is normal LV segmental wall motion. There is no ventricular septal defect visualized. LVEF is 60 %. Right Ventricle The right ventricle is normal size. The right ventricular systolic function is normal. Atria The left atrium size is normal. The right atrium size is normal. The interatrial septum is intact wit h no evidence for an atrial septal defect. Aortic Valve The aortic valve is normal in structure. Aortic valve is trileaflet. There is no aortic valvular sten osis. No aortic regurgitation is present. Mitral Valve The mitral valve is normal in structure. No evidence of mitral valve stenosis. Trace mitral regurgita tion. Tricuspid Valve The tricuspid valve is normal in structure. There is no tricuspid valve stenosis. Trace tricuspid reg urgitation. Unable to assess PA pressure. Pulmonic Valve The pulmonary valve is normal in structure. There is no pulmonic valvular stenosis. There is no pulmo keily valvular regurgitation. Great Vessels The aortic root is normal in size. The ascending aorta is normal in size. Aortic arch is normal in ca liber. IVC is normal in size and collapses >50% with inspiration. Pericardium There is no pericardial effusion. 2D Dimensions IVSD d PLAX 0.97 cm F: 0.6-1.0 LV Vol A2C d MOD 69.1 mL LVPW d PLAX 1.03 cm F: 0.6 - 1.0 LV Vol A4C d MOD 73.1 mL LVID d PLAX 4.35 cm F: 3.8 - 5.2 LA vol/ BSA A4C s A-L 14.1 mL/m2 LVDs 3.00 cm F: 2.2 - 3.5 LA Area A4C s MOD 12.23 cm2 Ao Root d 2.62 cm F: 2.7 - 3.3 LV EF A4C MOD 60.0 % RA Area A4C 13.80 cm2 LV EF A2C MOD 59.6 % RA Vol/ BSA A4C s A-L 17.8 mL/m2 LV EF Biplane MOD 60.0 % Ao Asc Diam d 2.68 cm F: 2.3 - 3.1 SV 42.84 mL LV EF Teichholz 58.6 % SV Index 22.04 mL/m2 LVEF (Pineda's) 60.01 % F: 54 - 74 LV Volume 54.06 mL F: 46 - 106 LV Volume Index 27.86 mL/m2 F: 29 - 61 LV Vol Biplane MOD 71.4 mL FS 30.75 % LV Diastology MV E' medial 0.068 (>0.07 m/s) E/A Ratio 0.9 LV E/e MED 9.00 (<14) MV E Vmax 0.62 (0.4-1.3 m/s) MV E' lateral 0.069 (>0.1 m/s) MV A Vmax 0.70 (0.4-1.3 m/s) LV E/e LAT 8.85 (<14) MV E/A Ratio 0.87 MV E/E' medial 9.01 MV E/E' lateral 8.89 Aortic Valve LVOT Area 3.35 cm2 AoV Area Vmax 1.75 cm2 LVOT Vmax 0.93 m/s AoV Area/ BSA (Vmax) 0.90 cm2/m2 LVOT Mean Josse. 0.60 m/s HEATHER Mean Josse. 1.50 cm2 LVOT Peak Grad 3.5 mmHg HEATHER Mean Josse. Index 0.77 cm2/m2 LVOT Mean Grad 1.7 mmHg LVOT VTI 0.204 m LVOT Diam s 2.05 cm AoV Vmax 1.78 m/s Velocity Ratio 0.52 AoV Mean Josse. 1.35 m/s AoV Peak Grad 12.6 mmHg LVOT SV 68.50 mL AoV Mean Grad 7.8 mmHg AoV VTI 0.352 m AoV Area VTI 1.95 cm2 AoV Area/ BSA (VTI) 1.00 cm/m2 Mitral Valve MV DT 214 (160-240 msec) MV PHT 62 msec MV Area PHT 3.54 cm2 MV VTI 0.148 m MV Area VTI 4.62 (4.0-6.0 cm2) Pulmonary Valve PV Vmax 0.87 (0.5-1.5 m/s) RVOT Peak Gr. 2.40 mmHg PV Peak Grad 3.1 mmHg RVOT Mean Gr. 1.15 mmHg PV Mean Grad 1.6 mmHg RVOT VTI 0.157 m PV VTI 0.172 m RVOT Vmax 0.78 m/s
== END ==
PROVIDERS: PCP Physician Assistant Medical; Visit Provider Physician Assistant Medical
DX: R01.1 Cardiac murmur, unspecified (principal)
CPT/HCPCS: 93306

== ENCOUNTER 2022-02-27 15:45 | Outpatient (REF) | payer MEDICAID, SELFPAY ==
[2022-02-27 15:09] LABS: Abs Immature Grans 0.02 10^3/uL (0.0-0.06); Absolute Basophil Count 0.06 10^3/uL (0.0-0.2); Absolute Eosinophil Count 0.28 10^3/uL (0.0-0.7); Absolute Monocyte Count 0.32 10^3/uL (0.1-0.8); Absolute Neutrophil Count 3.97 10^3/uL (1.2-6.7); Basophils % 0.9; Eosinophils % 4.3; HCT 40.2 % (36.0-46.0); HGB 13.5 g/dL (11.2-15.7); Immature Grans % 0.3; Lymphocytes % 27.9; MCHC 33.6 % (32.0-36.0); MCV 86 fL (80-95); MPV 9.6 fL (8.0-11.0); Neutrophils % 61.6; Platelet Count 340 10^3/uL (130-400); RBC 4.66 10^6/uL (3.93-5.22); RDW 12.5 % (11.7-14.6); RDW-SD 39.8 fL; WBC 6.45 10^3/uL (4.4-10.8)
[2022-02-27 15:20] LABS: ALT 110 U/L (14-59); AST 47 U/L (15-37); Albumin 4.5 g/dL (3.4-5.0); Alkaline Phosphatase 92 U/L (46-116); Anion Gap 7.4 mmol/L (3-11); BUN 19 mg/dL (7-18); Bilirubin, Total 0.4 mg/dL (0.2-1.0); CO2 28.6 mmol/L (21.0-32.0); Calcium 9.8 mg/dL (8.5-10.1); Chloride 99 mmol/L (98-107); Estimated GFR 66.12 (mL/min/1.73m2); Glucose 168 mg/dL (74-106); Potassium 3.9 mmol/L (3.5-5.1); Sodium 135 mmol/L (136-145); Total Protein 7.9 g/dL (6.4-8.2)
[2022-02-27 15:21] LABS: Hemoglobin A1C 7.3 % (<5.7)
== END 2022-02-27 15:46 | disposition home or self-care (01) ==
LOC: NCHCN 15:45
PROVIDERS: PCP Physician Assistant Medical; Visit Provider Physician Assistant Medical
DX: E11.9 Type 2 diabetes mellitus without complications (principal); K75.81 Nonalcoholic steatohepatitis (NASH)
CPT/HCPCS: 80053; 83036; 85025

== ENCOUNTER 2022-03-02 22:13 | Emergency (ER) | payer MEDICAID, SELFPAY ==
[2022-03-02] VITALS (11 sets, daily range): BP systolic 122–147; BP diastolic 58–109; PULSE 66–87; RESP 12–23; TEMP 36–37; O2SAT 93–97
--- NOTE | 2022-03-02 22:26 | ED.GENADUL_ITS ---
Discharge Plan Disposition Patient Disposition: Home Condition: Improving Discharge Details Chief Complaint: Allergic Clinical Impression: Throat discomfort Primary Care Provider: Ramona Cruz ED Provider: Silver Miller Home Meds and New Rx's Prescriptions: No Action Emgality Pen 120 mg/mL pen injector 240 mg subcut ONCE Qty: 2 0RF Rx Instructions: as a single dose; administer as two 120 mg injections at separate sites Advair HFA 115-21 mcg/actuation HFA aerosol inhaler 2 puff inhalation BID multivitamin [Daily Multiple] 1 EACH tablet 1 tab PO DAILY levothyroxine [Synthroid] 100 MCG tablet 88 mcg PO DAILY Label Comments: 02.22.16 pt states reduced to 88mcg.HE Fish Oil 1 EACH capsule 2 ea PO DAILY Latuda 40 MG tablet 40 mg PO DAILY metformin [Glucophage XR] 500 mg tablet extended release 24 hr 750 mg PO BID lisinopril 2.5 mg tablet 2.5 mg PO DAILY Januvia 100 mg tablet 100 mg PO DAILY Victoza 2-Dany 0.6 mg/0.1 mL (18 mg/3 mL) pen injector 1.8 mg subcut DAILY gabapentin 300 mg capsule 300 mg PO TID zolpidem 12.5 mg tablet,ext release multiphase 10 mg PO HS hydroxyzine HCl 25 mg tablet 25 mg PO QHS vitamin B complex [B Complex-Vitamin B12] Tablet 1 tab PO DAILY alpha lipoic acid 300 mg capsule 300 mg PO DAILY lidocaine 5 % adhesive patch,medicated 1 patch topical DAILY Rx Instructions: leave on most painful area for up to 12 hrs rosuvastatin [Crestor] 10 mg tablet 20 mg PO DAILY omeprazole 10 MG capsule,delayed release(DR/EC) 20 mg PO DAILY albuterol sulfate [ProAir HFA] 8.5 GM HFA aerosol inhaler 2 puff Inhalation .Q4 HRS PRN Label Comments: 07/22/16 PRN only. PG cholecalciferol (vitamin D3) 1,000 UNITS tablet 1 tab PO BID meclizine 25 mg tablet Discharge Instructions Instructions: Angioedema (ED), General Allergic Reaction (ED) Additional Instructions: Please follow-up with your primary care physician. Please return to the emergency department for any worsening symptoms. Medical Decision Making 56-year-old female presents with abnormal throat sensation in the setting of new migraine medication, feels sensation of fullness in throat beginning earlier today, normal voice tolerating secretions midline uvula no oropharyngeal swelling. Patient is also on lisinopril. No lip swelling or tongue swelling appreciated. Hemodynamically stable no hypoxia. Consider allergic reaction versus angioedema versus anxiety versus symptomatic thyroid nodule as patient does have history of a thyroid nodule for which she is currently being evaluated for biopsy. No evidence of airway obstruction or respiratory distress at this time. Trial of dexamethasone Benadryl Zofran will obtain basic labs disposition likely home pending reassessment of symptoms 23: 39 patient still feeling slightly symptomatic particularly at base of tongue, patient's oropharynx is patent her voice is normal and unchanged, hemodynamically stable no respiratory distress. Consider component of angioedema. Patient counseled to discontinue her lisinopril until she discusses further treatment with her primary care physician. We will continue observe in department, if no deterioration will be discharged home with close follow-up and return precautions 03/03 02: 00 patient resting comfortably no acute distress. Saturating 95% on room air. Voice sounds more clear than arrival. Patient feeling much better. Home care instructions and return precautions given Sign Out No HPI General Date/Time Provider Initiated Documentation: 03/02/22 22:15 . HPI Narrative: 56-year-old female recently started on new migraine medication, subcutaneous injection given on the 10th of this month, presents with sensation of throat fullness. 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 and thinks she may developing a rash Related Data Home Medications Medication Instructions Recorded Confirmed levothyroxine 100 mcg tablet 88 mcg PO DAILY 12/16/14 02/14/22 (Synthroid) lurasidone 40 mg tablet (Latuda) 40 mg PO DAILY 12/16/14 02/14/22 multivitamin (Daily Multiple 1 tab PO DAILY 12/16/14 02/20/22 tablet) omega-3 fatty acids-fish oil 340 2 ea PO DAILY 12/16/14 02/14/22 mg-1,000 mg capsule (Fish Oil) albuterol sulfate 90 mcg/actuation 2 puff inhalation .Q4 HRS PRN 07/25/15 02/14/22 aerosol inhaler (ProAir HFA) cholecalciferol (vitamin D3) 25 1 tab PO BID 07/25/15 02/14/22 mcg (1,000 unit) tablet omeprazole 10 mg capsule,delayed 20 mg PO DAILY 07/25/15 02/14/22 release gabapentin 300 mg capsule 300 mg PO TID 03/21/21 02/14/22 hydroxyzine HCl 25 mg tablet 25 mg PO QHS 03/21/21 02/14/22 liraglutide 0.6 mg/0.1 mL (18 mg/3 1.8 mg subcut DAILY 03/21/21 02/14/22 mL) subcutaneous pen injector (Victoza 2-Dany) lisinopril 2.5 mg tablet 2.5 mg PO DAILY 03/21/21 02/14/22 metformin 500 mg tablet,extended 750 mg PO BID 03/21/21 02/14/22 release 24 hr (Glucophage XR) sitagliptin phosphate 100 mg 100 mg PO DAILY 03/21/21 02/14/22 tablet (Januvia) zolpidem 12.5 mg tablet,extended 10 mg PO HS 03/21/21 02/14/22 release,multiphase alpha lipoic acid 300 mg capsule 300 mg PO DAILY 08/15/21 02/14/22 lidocaine 5 % topical patch 1 patch topical DAILY 08/15/21 02/14/22 vitamin B complex (B 1 tab PO DAILY 08/15/21 02/14/22 Complex-Vitamin B12 tablet) rosuvastatin 10 mg tablet (Crestor) 20 mg PO DAILY 10/10/21 02/14/22 meclizine 25 mg tablet tab 10/26/21 02/14/22 galcanezumab-gnlm 120 mg/mL 240 mg (2 mL) subcut ONCE #2 mL 01/24/22 02/14/22 subcutaneous pen injector (Emgality Pen) fluticasone propionate 115 2 puff inhalation BID 02/20/22 mcg-salmeterol 21 mcg/actuation HFA inhaler (Advair HFA) Previous Rx's Medication Instructions Recorded galcanezumab-gnlm 120 mg/mL 240 mg (2 mL) subcut ONCE #2 mL 01/24/22 subcutaneous pen injector (Emgality Pen) Allergies Allergy/AdvReac Type Severity Reaction Status Date / Time duloxetine HCl Allergy Intermediate unknown Unverified 02/20/22 13:14 [From Cymbalta] mold Allergy Verified 02/20/22 13:14 codeine AdvReac Intermediate Nausea Unverified 02/20/22 13:14 lactose AdvReac Intermediate Nausea, Unverified 02/20/22 13:14 diarrhea oxycodone [From Percocet] AdvReac Intermediate Nausea Unverified 02/20/22 13:14 acetaminophen AdvReac Mild Nausea Unverified 02/20/22 13:14 [From Darvocet-N] naproxen [From Naprosyn] AdvReac Mild Nausea Unverified 02/20/22 13:14 propoxyphene napsylate AdvReac Mild Nausea Unverified 02/20/22 13:14 [From Darvocet-N] General Stated Complaint: Allergic HARESH: 3 Review of Systems Narrative: Review of Systems Constitutional: negative Eyes: negative ENT: Throat fullness sensation Cardiovascular: negative Respiratory: negative Gastrointestinal: negative : negative Musculoskeletal: negative Skin: negative Neurologic: negative Psych: negative PFSH All Active Problems (Updated 03/03/22 @ 02:03 by Silver Miller MD) Throat discomfort (Acute) Migraine headache without aura (Acute) Atypical migraine (Acute) History of reconstruction of anterior cruciate ligament tear (Acute 09/28/21) ACL reconstruction with graft link soft tissue allograft Status post arthroscopy of left knee (Acute 09/28/21) s/p ACL reconstruction, lateral meniscus repair, synovectomy Syncope (Chronic) Abdominal cramping (Acute) Injury of knee, left (Acute) Hypomagnesemia (Acute) Renal insufficiency (Chronic) Nonalcoholic steatohepatitis (Acute) Left ACL tear (Acute 02/01/21) Acute lateral meniscus tear of left knee (Acute 02/01/21) Benign paroxysmal positional vertigo (Acute) Cervical vertigo (Acute) Pressure in head (Acute) Dizziness (Acute) Medical History Acute medial meniscus tear of left knee (02/01/21) Allergic asthma Allergic rhinitis Asthma Back pain, chronic Bipolar 1 disorder, depressed Cyclothymic disorder Diabetes type 2, uncontrolled Fatigue Fibromyalgia Fibromyalgia muscle pain GERD (gastroesophageal reflux disease) Hyperlipidemia Hyperlipidemia, mixed Hypertension Hypothyroidism Insomnia Knee pain, left Obesity Obesity (BMI 30.0-34.9) Palpitations Pt. had negative workup PTSD (post-traumatic stress disorder) Pt. denies anything as trigger Right thyroid nodule Type 2 diabetes mellitus Vertigo Surgical History Colonoscopy - MAC (07/22/16) H/O rotator cuff surgery Right H/O tubal ligation S/P tubal ligation Social History Smoking/Tobacco Use Status: Never Smoking risk assessment performed?: Yes Alcohol Intake: never Drug use: Never Substance use type: does not use Current gender identity: female Do you feel safe at home: Yes Do you feel safe in your relationship?: Yes Exam Narrative Exam Narrative: Physical Examination General: alert, awake, cooperative, resting comfortably, no acute distress HEENT: normocephalic, atraumatic; PERRL, EOM intact, conjunctiva normal; no nasal discharge; moist mucous membranes, oral and pharyngeal mucosa normal, tolerating secretions Neck: supple, trachea midline; full ROM Chest: normal to inspection Respiratory: normal respiratory effort, speaking in full sentences, clear to auscultation, no wheezing, rales or rhonchi Cardiac: regular rate, regular rhythm, S1S2 intact, no murmurs rubs or gallops GI: abdomen soft, non-tender, non-distended; no palpable mass or hepatosplenomegaly Skin: no lesions, rashes or trauma appreciated Neuro: AAOx3, normal speech, moving all extremities Psych: Appropriate mood and affect Course Vital Signs Vital signs: Vital Signs Temperature 37 C 03/02/22 22:22 Pulse 67 03/02/22 22:22 Respiratory Rate 20 03/02/22 22:22 Blood Pressure 147/109 H 03/02/22 22:22 Pulse Oximetry 96 03/02/22 22:22 Temperature 37 C 03/02/22 22:22 Temperature Source Temporal Artery Scan 03/02/22 22:22 Pulse 67 03/02/22 22:22 Respiratory Rate 20 03/02/22 22:22 Blood Pressure 147/109 H 03/02/22 22:22 Blood Pressure Position Sitting 03/02/22 22:22 Pulse Oximetry 96 03/02/22 22:22 Oxygen Delivery Method Room Air 03/02/22 22:22 Oxygen Flow Rate 0 03/02/22 22:22 Pain Level 2 03/02/22 22:22 Comment 03/02/22 22:22
[2022-03-02] MEDS: Normal Saline 1,000 ML 1000 ML IV (22:44)
[2022-03-02] MEDS: Ondansetron 4 MG/2 ML VIAL IVP (22:44)
[2022-03-02] MEDS: diphenhydrAMINE 50 MG/ML VIAL IVP (22:46)
[2022-03-02 22:47] LABS: Abs Immature Grans 0.02 10^3/uL (0.0-0.06); Absolute Basophil Count 0.05 10^3/uL (0.0-0.2); Absolute Lymphocyte Count 2.63 10^3/uL (1.2-3.4); Absolute Monocyte Count 0.37 10^3/uL (0.1-0.8); Absolute Neutrophil Count 5.29 10^3/uL (1.2-6.7); Basophils % 0.6; Eosinophils % 2.3; HCT 38.7 % (36.0-46.0); Immature Grans % 0.2; Lymphocytes % 30.7; MCH 28.9 pg (27.0-33.0); MCHC 33.6 % (32.0-36.0); MCV 86 fL (80-95); MPV 9.4 fL (8.0-11.0); Monocytes % 4.3; Neutrophils % 61.9; Platelet Count 333 10^3/uL (130-400); RDW 12.5 % (11.7-14.6); RDW-SD 39.2 fL; WBC 8.56 10^3/uL (4.4-10.8)
[2022-03-02] MEDS: Dexamethasone 10 MG/ML VIAL IVP (22:47)
[2022-03-02 23:06] LABS: ALT 95 U/L (14-59); AST 33 U/L (15-37); Albumin 4.3 g/dL (3.4-5.0); Alkaline Phosphatase 91 U/L (46-116); Anion Gap 8.3 mmol/L (3-11); BUN 15 mg/dL (7-18); Bilirubin, Total 0.4 mg/dL (0.2-1.0); CO2 28.7 mmol/L (21.0-32.0); Calcium 9.6 mg/dL (8.5-10.1); Chloride 100 mmol/L (98-107); Estimated GFR 66.12 (mL/min/1.73m2); Glucose 227 mg/dL (74-106); Sodium 137 mmol/L (136-145); Total Protein 7.5 g/dL (6.4-8.2)
[2022-03-03] VITALS (12 sets, daily range): BP systolic 120–130; BP diastolic 60–76; PULSE 77–94; RESP 14–23; O2SAT 88–95
== END 2022-03-03 02:19 | disposition home or self-care (01) ==
PROVIDERS: Emergency Provider Emergency Medicine; PCP Physician Assistant Medical
DX: R07.0 Pain in throat (principal); T50.905A Adverse effect of unspecified drugs, medicaments and biological substances, initial encounter; J45.909 Unspecified asthma, uncomplicated; E11.9 Type 2 diabetes mellitus without complications; I10 Essential (primary) hypertension; E03.9 Hypothyroidism, unspecified; E78.2 Mixed hyperlipidemia; G47.00 Insomnia, unspecified; Z98.51 Tubal ligation status
CPT/HCPCS: 80053; 96361; 96374; 96375; 99284; 85025; J1100; J1200; J2405

== ENCOUNTER 2022-04-15 02:33 | Outpatient (CLI) | payer MEDICARE, MEDICAID, SELFPAY ==
--- NOTE | 2022-04-15 | DI.RAD_ITS ---
Exam(s) XR CHEST 2V PA LATERAL EXAM: XR CHEST 2V PA LATERAL CLINICAL HISTORY: ASTHMATIC BRONCHITIS, CHRONIC, J44.9 TECHNIQUE: 2D digital imaging was performed. COMPARISON: CT CT CHEST PE CTA from 10/27/2021 FINDINGS: HEART: Normal size. Aorta: Not dilated. PULMONARY VASCULATURE: Normal. LUNGS: Clear. PLEURAL SPACE: No pleural effusion or pneumothorax. BONE:Unremarkable for age. IMPRESSION: No acute abnormality. DATA REPOSITORY: RADIATION DOSE DELIVERED:
== END 2022-04-15 02:53 ==
PROVIDERS: PCP Physician Assistant Medical; Visit Provider Physician Assistant Medical
DX: J44.9 Chronic obstructive pulmonary disease, unspecified (principal)
CPT/HCPCS: 71046

== ENCOUNTER 2022-06-12 17:46 | Outpatient (REF) | payer MEDICARE, MEDICAID, SELFPAY ==
[2022-06-12 20:11] LABS: COMMENT (LAB VIEW ONLY) 44.86 mg/dL
[2022-06-12 20:13] LABS: Microalb ug/mg Crea 180.6 ug/mg Cr
== END 2022-06-12 17:47 | disposition home or self-care (01) ==
LOC: NCHCN 17:46
PROVIDERS: PCP Physician Assistant Medical; Visit Provider Physician Assistant Medical
DX: E11.9 Type 2 diabetes mellitus without complications (principal)
CPT/HCPCS: 82043; 82570

== ENCOUNTER → 2022-07-25 09:31 | Outpatient (BNVA) | payer MEDICARE, MEDICAID, SELFPAY | PROVIDERS: PCP Physician Assistant Medical; Referring Provider Physician Assistant Medical; Visit Provider Nurse Practitioner Adult Health | DX: G43.009 Migraine without aura, not intractable, without status migrainosus (principal); F39 Unspecified mood [affective] disorder; G89.29 Other chronic pain | CPT/HCPCS: 99212; 99213 ==

== ENCOUNTER 2022-09-10 14:59 | Outpatient (REF) | payer MEDICARE, MEDICAID, SELFPAY ==
[2022-09-10 19:16] LABS: HCT 40.8 % (36.0-46.0); HGB 13.7 g/dL (11.2-15.7); MCH 28.4 pg (27.0-33.0); MCHC 33.6 % (32.0-36.0); MCV 85 fL (80-95); MPV 9.6 fL (8.0-11.0); Platelet Count 335 10^3/uL (130-400); RBC 4.83 10^6/uL (3.93-5.22); RDW 12.1 % (11.7-14.6); RDW-SD 36.8 fL; WBC 5.72 10^3/uL (4.4-10.8)
[2022-09-10 19:37] LABS: ALT 89 U/L (14-59); AST 34 U/L (15-37); Albumin 4.3 g/dL (3.4-5.0); Alkaline Phosphatase 100 U/L (46-116); BUN 16 mg/dL (7-18); Bilirubin, Total 0.3 mg/dL (0.2-1.0); CREATININE 0.9 mg/dL (0.55-1.02); Calcium 9.5 mg/dL (8.5-10.1); Chloride 101 mmol/L (98-107); Estimated GFR 75.03 (mL/min/1.73m2); Glucose 169 mg/dL (74-106); Potassium 4.2 mmol/L (3.5-5.1); Sodium 138 mmol/L (136-145); TSH (W/Ref FT4) 0.05 uIU/mL (0.36-3.74); Total Protein 7.6 g/dL (6.4-8.2)
== END 2022-09-10 15:00 | disposition home or self-care (01) ==
LOC: NCHCN 14:59
PROVIDERS: PCP Physician Assistant Medical; Visit Provider Physician Assistant Medical
DX: E11.9 Type 2 diabetes mellitus without complications (principal); E03.9 Hypothyroidism, unspecified; K75.81 Nonalcoholic steatohepatitis (NASH)
CPT/HCPCS: 80053; 85027; 83036; 84439; 84443

== ENCOUNTER → 2022-12-25 01:29 | Outpatient (CLI) | payer MEDICARE, MEDICAID, SELFPAY ==
--- NOTE | 2022-12-25 | DI.MAMMO_ITS ---
Exam(s) MAMMO SCREENING EXAM: MAMMO SCREENING CLINICAL HISTORY: SCREENING, Z12.39 TECHNIQUE: Mammograms were interpreted according to the usual protocol including computer analysis w [employer] CAD system, tomosynthesis and C-view imaging. COMPARISON: 2013 through 2021 FINDINGS: The breasts are composed of scattered fibroglandular densities, Breast Density category B. No suspicious masses or suspicious microcalcifications are seen. No skin thickening or abnormal axillary lymph nodes are seen. There has been no significant change from prior exams. IMPRESSION: BI-RADS Category 1, Negative mammogram Yearly screening mammography is recommended. Breast Density - Category B, scattered fibroglandular densities. A negative radiographic report should not delay biopsy if a dominant or clinically suspicious mass is present. Up to ten percent of cancers are not identified on mammography. A negative report may reinforce clinical impression. Adenosis and dense breasts may obscure an underlying neoplasm. False positive reports average 6 to 10%. Patient will receive a letter notifying them of these results.
== END ==
PROVIDERS: PCP Physician Assistant Medical; Visit Provider Physician Assistant Medical
DX: Z12.31 Encounter for screening mammogram for malignant neoplasm of breast (principal)
CPT/HCPCS: 77063; 77067

== ENCOUNTER → 2023-01-21 12:41 | Outpatient (BNVA) | payer MEDICARE, MEDICAID, SELFPAY | PROVIDERS: PCP Physician Assistant Medical; Referring Provider Physician Assistant Medical; Visit Provider Nurse Practitioner Adult Health | DX: G43.009 Migraine without aura, not intractable, without status migrainosus (principal); F39 Unspecified mood [affective] disorder; G89.29 Other chronic pain | CPT/HCPCS: 99213 ==

== ENCOUNTER 2023-05-07 13:37 | Outpatient (REF) | payer MEDICARE, MEDICAID, SELFPAY ==
[2023-05-07 20:32] LABS: Abs Immature Grans 0.03 10^3/uL (0.0-0.06); Absolute Basophil Count 0.06 10^3/uL (0.0-0.2); Absolute Lymphocyte Count 1.96 10^3/uL (1.2-3.4); Absolute Monocyte Count 0.39 10^3/uL (0.1-0.8); Absolute Neutrophil Count 3.62 10^3/uL (1.2-6.7); Eosinophils % 3.2; HCT 40.2 % (36.0-46.0); HGB 13.8 g/dL (11.2-15.7); Immature Grans % 0.5; Lymphocytes % 31.3; MCH 29.2 pg (27.0-33.0); MCHC 34.3 % (32.0-36.0); MCV 85 fL (80-95); MPV 9.5 fL (8.0-11.0); Monocytes % 6.2; Neutrophils % 57.8; Platelet Count 368 10^3/uL (130-400); RBC 4.72 10^6/uL (3.93-5.22); RDW 12.2 % (11.7-14.6); RDW-SD 37.7 fL; WBC 6.26 10^3/uL (4.4-10.8)
[2023-05-07 20:53] LABS: ALT 61 U/L (14-59); AST 26 U/L (15-37); Albumin 4.2 g/dL (3.4-5.0); Alkaline Phosphatase 79 U/L (46-116); Anion Gap 7.4 mmol/L (3-11); BUN 17 mg/dL (7-18); Bilirubin, Total 0.3 mg/dL (0.2-1.0); CO2 30.6 mmol/L (21.0-32.0); CREATININE 0.8 mg/dL (0.55-1.02); Calcium 9.7 mg/dL (8.5-10.1); Chloride 103 mmol/L (98-107); Estimated GFR 85.89 (mL/min/1.73m2); Glucose 128 mg/dL (74-106); Potassium 4.2 mmol/L (3.5-5.1); Sodium 141 mmol/L (136-145); TSH (W/Ref FT4) 0.41 uIU/mL (0.36-3.74); Total Protein 7.4 g/dL (6.4-8.2)
== END 2023-05-07 13:38 | disposition home or self-care (01) ==
LOC: NCHCN 13:37
PROVIDERS: PCP Physician Assistant Medical; Visit Provider Physician Assistant Medical
DX: R42 Dizziness and giddiness (principal); E03.9 Hypothyroidism, unspecified; E78.2 Mixed hyperlipidemia; E11.9 Type 2 diabetes mellitus without complications
CPT/HCPCS: 80053; 84443; 85025

== ENCOUNTER 2023-06-13 15:14 | Outpatient (REF) | payer MEDICARE, MEDICAID, SELFPAY ==
[2023-06-13 17:15] LABS: Hemoglobin A1C 6.3 % (<5.7)
[2023-06-13 17:17] LABS: COMMENT (LAB VIEW ONLY) 190.44 mg/dL
[2023-06-13 17:55] LABS: Microalb ug/mg Crea 177.7 ug/mg Cr
== END 2023-06-13 15:15 | disposition home or self-care (01) ==
LOC: NCHCN 15:14
PROVIDERS: PCP Physician Assistant Medical; Referring Provider Physician Assistant Medical; Visit Provider Physician Assistant Medical
DX: E11.9 Type 2 diabetes mellitus without complications (principal)
CPT/HCPCS: 82043; 82570; 83036

== ENCOUNTER → 2023-07-22 12:27 | Outpatient (BNVA) | payer MEDICARE, MEDICAID, SELFPAY | PROVIDERS: PCP Physician Assistant Medical; Referring Provider Physician Assistant Medical; Visit Provider Nurse Practitioner Adult Health | DX: G43.009 Migraine without aura, not intractable, without status migrainosus (principal) | CPT/HCPCS: 99213 ==

== ENCOUNTER 2023-09-22 15:16 | Outpatient (REF) | payer MEDICARE, MEDICAID, SELFPAY ==
[2023-09-22 16:09] LABS: Hemoglobin A1C 6.4 % (<5.7)
[2023-09-22 16:36] LABS: ALT 89 U/L (14-59); AST 34 U/L (15-37); Albumin 4.3 g/dL (3.4-5.0); Alkaline Phosphatase 86 U/L (46-116); Anion Gap 7.8 mmol/L (3-11); BUN 11 mg/dL (7-18); Bilirubin, Total 0.2 mg/dL (0.2-1.0); CO2 30.2 mmol/L (21.0-32.0); CREATININE 0.7 mg/dL (0.55-1.02); Calcium 9.2 mg/dL (8.5-10.1); Calculated LDL 83 mg/dL (<100); Chloride 102 mmol/L (98-107); Cholesterol 202 mg/dL (<200); Estimated GFR 100.81 (mL/min/1.73m2); Glucose 185 mg/dL (74-106); HDL Cholesterol 53 mg/dL (40-60); Potassium 4.5 mmol/L (3.5-5.1); Sodium 140 mmol/L (136-145); Triglyceride 331 mg/dL (<150)
== END 2023-09-22 15:17 | disposition home or self-care (01) ==
LOC: NCHCN 15:16
PROVIDERS: PCP Physician Assistant Medical; Visit Provider Physician Assistant Medical
DX: E11.9 Type 2 diabetes mellitus without complications (principal); E78.2 Mixed hyperlipidemia
CPT/HCPCS: 80053; 80061; 83036

== ENCOUNTER → 2024-01-20 11:00 | Outpatient (BNVA) | payer MEDICARE, MEDICAID, SELFPAY | PROVIDERS: PCP Physician Assistant Medical; Referring Provider Physician Assistant Medical; Visit Provider Nurse Practitioner Adult Health | DX: G43.009 Migraine without aura, not intractable, without status migrainosus (principal) | CPT/HCPCS: 99213 ==

== ENCOUNTER 2024-03-22 20:25 | Outpatient (REF) | payer MEDICARE, MEDICAID, SELFPAY ==
[2024-03-22 22:29] LABS: Abs Immature Grans 0.02 10^3/uL (0.0-0.06); Absolute Basophil Count 0.05 10^3/uL (0.0-0.2); Absolute Eosinophil Count 0.24 10^3/uL (0.0-0.7); Absolute Lymphocyte Count 1.93 10^3/uL (1.2-3.4); Absolute Monocyte Count 0.29 10^3/uL (0.1-0.8); Absolute Neutrophil Count 2.88 10^3/uL (1.2-6.7); Basophils % 0.9 %; Eosinophils % 4.4 %; HCT 39.5 % (36.0-46.0); HGB 13.4 g/dL (11.2-15.7); Immature Grans % 0.4 %; Lymphocytes % 35.7 %; MCH 29.8 pg (27.0-33.0); MCHC 33.9 % (32.0-36.0); MCV 88 fL (80-95); MPV 9.8 fL (8.0-11.0); Monocytes % 5.4 %; Neutrophils % 53.2 %; Platelet Count 325 10^3/uL (130-400); RDW 12.7 % (11.7-14.6); RDW-SD 40.5 fL; WBC 5.41 10^3/uL (4.4-10.8)
[2024-03-22 22:45] LABS: Hemoglobin A1C 6.8 % (<5.7)
[2024-03-22 22:47] LABS: ALT 102 U/L (14-59); AST 50 U/L (15-37); Albumin 4.4 g/dL (3.4-5.0); Alkaline Phosphatase 88 U/L (46-116); Anion Gap 12.3 mmol/L (3-11); BUN 13 mg/dL (7-18); Bilirubin, Total 0.17 mg/dL (0.2-1.0); CO2 25.7 mmol/L (21.0-32.0); CREATININE 0.8 mg/dL (0.55-1.02); Calcium 9.4 mg/dL (8.5-10.1); Chloride 104 mmol/L (98-107); Estimated GFR 85.35 (mL/min/1.73m2); Glucose 126 mg/dL (74-106); Potassium 4.5 mmol/L (3.5-5.1); Sodium 142 mmol/L (136-145); TSH (W/Ref FT4) 0.33 uIU/mL (0.36-3.74); Total Protein 7.2 g/dL (6.4-8.2)
[2024-03-22 23:04] LABS: FREE T4 0.99 ng/dL (0.76-1.46)
== END 2024-03-22 20:26 | disposition home or self-care (01) ==
LOC: NCHCN 20:25
PROVIDERS: PCP Physician Assistant Medical; Visit Provider Physician Assistant Medical
DX: E11.9 Type 2 diabetes mellitus without complications (principal); K75.81 Nonalcoholic steatohepatitis (NASH); E03.9 Hypothyroidism, unspecified
CPT/HCPCS: 80053; 83036; 84439; 84443; 85025

== ENCOUNTER 2024-06-21 21:23 | Outpatient (REF) | payer MEDICARE, MEDICAID, SELFPAY ==
[2024-06-21 19:45] LABS: Hemoglobin A1C 6.7 % (<5.7)
[2024-06-21 19:52] LABS: TSH (W/Ref FT4) 0.44 uIU/mL (0.36-3.74)
== END 2024-06-21 21:24 | disposition home or self-care (01) ==
LOC: NCHCN 21:23
PROVIDERS: PCP Physician Assistant Medical; Visit Provider Physician Assistant Medical
DX: E11.9 Type 2 diabetes mellitus without complications (principal); E03.9 Hypothyroidism, unspecified; Z85.850 Personal history of malignant neoplasm of thyroid
CPT/HCPCS: 83036; 84443

== ENCOUNTER 2024-06-24 01:05 | Outpatient (CLI) | payer MEDICARE, MEDICAID, SELFPAY ==
--- NOTE | 2024-06-24 11:35 | DI.RAD_ITS ---
Exam(s) XR SHOULDER RT COMPLETE 2+V EXAM: XR SHOULDER RT COMPLETE 2+V CLINICAL HISTORY: PAIN RT ARM M79.601. TECHNIQUE: 2D digital imaging was performed. Five views. COMPARISON: CR LEFT SHOULDER COMPLETE from 02/22/2016 FINDINGS: BONES: No acute fracture is present. No bony destructive lesion is seen. Mild spurring at the unders urface of the acromion and greater tuberosity. JOINTS: No dislocation present. Glenohumeral joint space is maintained. No significant spurring at the AC joint. SOFT TISSUE: Normal. IMPRESSION: Mild degenerative changes. DATA REPOSITORY: RADIATION DOSE DELIVERED:
--- NOTE | 2024-06-24 11:36 | DI.RAD_ITS ---
Exam(s) XR CERVICAL SPINE COMP 4-5V EXAM: XR CERVICAL SPINE COMP 4-5V CLINICAL HISTORY: RADICULOPATHY CERVICAL REGION M54.12. TECHNIQUE: 2D digital imaging was performed. Five views were performed. COMPARISON: No exams were available for comparison FINDINGS: BONES: No fracture or destructive lesion. Vertebral bodies are unremarkable. Mild facet degenerativ e changes. No significant neural foraminal narrowing. DISKS: Moderate narrowing of the C5-6 disc space with moderate endplate osteophytes. Mild narrowing of the C6-7 disc space with small endplate osteophytes. Intervertebral disc spaces are maintained. ALIGNMENT: Cervical spinal alignment is within normal limits. The odontoid and atlantoaxial articulat ions are normal. SOFT TISSUE: Normal. The lung apices are clear. IMPRESSION: Degenerative changes at C5-6 and C6-7. DATA REPOSITORY: RADIATION DOSE DELIVERED:
== END 2024-06-24 01:25 ==
LOC: DI 01:05
PROVIDERS: PCP Physician Assistant Medical; Visit Provider Physician Assistant Medical
DX: M54.12 Radiculopathy, cervical region (principal)
CPT/HCPCS: 72050; 73030

== ENCOUNTER 2024-07-05 14:45 | Outpatient (REF) | payer MEDICARE, MEDICAID, SELFPAY | END 2024-07-05 14:46 | disposition home or self-care (01) | LOC: NCHCN 14:45 | PROVIDERS: PCP Physician Assistant Medical; Visit Provider Physician Assistant Medical | DX: R30.0 Dysuria (principal); R82.89 Other abnormal findings on cytological and histological examination of urine; B96.29 Other Escherichia coli [E. coli] as the cause of diseases classified elsewhere | CPT/HCPCS: 87077; 87086; 87186 ==

== ENCOUNTER → 2024-07-20 12:27 | Outpatient (BNVA) | payer MEDICARE, MEDICAID, SELFPAY | PROVIDERS: PCP Physician Assistant Medical; Visit Provider Nurse Practitioner Adult Health | DX: G43.009 Migraine without aura, not intractable, without status migrainosus (principal) | CPT/HCPCS: 99214 ==

== ENCOUNTER → 2024-09-20 12:53 | Outpatient (BNVA) | payer MEDICARE, MEDICAID, SELFPAY | PROVIDERS: PCP Physician Assistant Medical; Referring Provider Physician Assistant Medical; Visit Provider Nurse Practitioner Adult Health | DX: G43.009 Migraine without aura, not intractable, without status migrainosus (principal) | CPT/HCPCS: 99214 ==

== ENCOUNTER 2024-09-21 14:59 | Outpatient (REF) | payer MEDICARE, MEDICAID, SELFPAY ==
[2024-09-21 19:23] LABS: Hemoglobin A1C 6.7 % (<5.7)
[2024-09-21 19:29] LABS: ALT 83 U/L (14-59); AST 38 U/L (15-37); Albumin 4.5 g/dL (3.4-5.0); Alkaline Phosphatase 87 U/L (46-116); Anion Gap 6.1 mmol/L (3-11); BUN 16 mg/dL (7-18); Bilirubin, Total 0.2 mg/dL (0.2-1.0); CO2 33.9 mmol/L (21.0-32.0); CREATININE 0.9 mg/dL (0.55-1.02); Calcium 9.2 mg/dL (8.5-10.1); Chloride 102 mmol/L (98-107); Cholesterol 194 mg/dL (<200); Glucose 176 mg/dL (74-106); HDL Cholesterol 52 mg/dL (>or=50); Potassium 4.1 mmol/L (3.5-5.1); Sodium 142 mmol/L (136-145); TSH 0.35 uIU/mL (0.36-3.74); Total Protein 7.2 g/dL (6.4-8.2); Triglyceride 462 mg/dL (<150)
[2024-09-21 19:42] LABS: LDL CHOLESTEROL 95 mg/dL (<100)
== END 2024-09-21 15:00 | disposition home or self-care (01) ==
LOC: NCHCN 14:59
PROVIDERS: PCP Physician Assistant Medical; Visit Provider Physician Assistant Medical
DX: E11.9 Type 2 diabetes mellitus without complications (principal)
CPT/HCPCS: 80053; 80061; 83721; 83036; 84443

== ENCOUNTER 2024-10-01 13:23 | Emergency (ER) | payer MEDICARE, MEDICAID, SELFPAY ==
[2024-10-01] VITALS (13 sets, daily range): BP systolic 151–228; BP diastolic 69–95; PULSE 74–84; RESP 12–19; O2SAT 95–98
--- NOTE | 2024-10-01 13:30 | RT.EKG_ITS ---
APPROVED REPORT Exam: Resting ECG Reason for Exam: hypertensive Patient Location: E HR:81 bpm ECG Measurements Heart Rate 81 AXIS AK 135 P 13 QRSd 93 QRS -22 QT 369 T 7 QTc 429 Conclusion Sinus rhythm...normal P axis, V-rate 60- 99 I have reviewed and interpreted ECG and agree with software generated interpretation.
--- NOTE | 2024-10-01 13:44 | W.ED.GENAD ---
Discharge Plan Disposition Patient Disposition: Home Condition: Good Discharge Details Clinical Impression: Hypertension Primary Care Provider: Ramona Cruz ED Provider: Jerman Marrero Home Meds and New Rx's Prescriptions: No Action exenatide microspheres 2 mg suspension,extended rel recon subcut meclizine 25 mg tablet 25 mg PO BID PRN (Reason: migraine) Qty: 60 2RF loratadine [Allergy Relief (loratadine)] 10 mg tablet 10 mg PO DAILY magnesium oxide 500 mg capsule 500 mg PO DAILY saxagliptin [Onglyza] 2.5 mg tablet 2.5 mg PO DAILY Qulipta 60 mg tablet 60 mg PO DAILY Qty: 90 3RF sumatriptan succinate 100 mg tablet See Rx Instructions PO .COMPLEX Qty: 14 3RF Rx Instructions: take 1 tab at onset of headache; if no relief, may repeat 1 tab after at least 2 hrs; max = 2 tabs/24 hrs PO multivitamin [Daily Multiple] 1 EACH tablet 1 tab PO DAILY Fish Oil 1 EACH capsule 2 ea PO DAILY lurasidone [Latuda] 40 MG tablet 40 mg PO DAILY metformin [Glucophage XR] 500 mg tablet extended release 24 hr 750 mg PO BID gabapentin 300 mg capsule 300 mg PO TID zolpidem 12.5 mg tablet,ext release multiphase 10 mg PO HS hydroxyzine HCl 25 mg tablet 25 mg PO QHS vitamin B complex [B Complex-Vitamin B12] Tablet 1 tab PO DAILY alpha lipoic acid 300 mg capsule 300 mg PO DAILY lidocaine 5 % adhesive patch,medicated 1 patch topical DAILY Rx Instructions: leave on most painful area for up to 12 hrs rosuvastatin [Crestor] 10 mg tablet 20 mg PO DAILY levothyroxine [Synthroid] 100 mcg tablet 125 mcg PO DAILY Emgality Pen 120 mg/mL pen injector 120 mg subcut QMONTH Qty: 3 3RF carvedilol 12.5 mg tablet 25 mg PO BID Rx Instructions: must administer with a meal/food omeprazole 10 MG capsule,delayed release(DR/EC) 20 mg PO DAILY albuterol sulfate [ProAir HFA] 8.5 GM HFA aerosol inhaler 2 puff Inhalation .Q4 HRS PRN Patient Comments: 07/22/16 PRN only. PG cholecalciferol (vitamin D3) 1,000 UNITS tablet 1 tab PO BID Discharge Instructions Instructions: High Blood Pressure ED Additional Instructions: At this time your blood pressure has notably improved with rest and no additional medications. Please continue to avoid salty foods, take your medications as prescribed. If you notice any worsening of your symptoms, or any new symptoms such as vomiting, diarrhea, fever, chills, shortness of breath, chest pain, numbness, weakness, or fainting , please return immediately to the emergency department for reevaluation. Please follow up with your primary care provider as soon as possible for reassessment and reevaluation. As always, it was a pleasure participating in your medical care today. Referrals: Ramona Cruz PA [Primary Care Provider, Medicine] [facility] General Date/Time Provider Initiated Documentation: 10/01/24 13:41. HPI Narrative: This is a 58-year-old female with a past medical history of hypertension, migraines, kidney disease, fibromyalgia, hypothyroidism, bipolar type I, diabetes mellitus, who presents today for evaluation of hypertension. Patient states that she has chronically been managed for her hypertension, but did not tolerate her NATALIIA inhibitor well, and was switched to carvedilol. She was recently increased from 12.5 mg twice daily to 25 mg twice daily. This morning she went in to see her doctor, and her blood pressure was notably elevated. She was sent home and recommended that she take her morning medication. She did take it at 11, and then checked her blood pressure an hour or so later which was noted to be 201/106. She was then recommended to come in for further assessment. She admits to a very small amount of nonexertional achiness in the left chest which she states is present today but otherwise slightly new compared to normal. No history of cardiac pathology stroke or IA. She denies vomiting or diarrhea. She denies headache or neck pain. No other complaints at this time. No weakness or syncope. Related Data Home Medications ?Medication ?Instructions ?Recorded ?Confirmed lurasidone 40 mg tablet (Latuda) 40 mg PO DAILY 12/16/14 09/20/24 multivitamin (Daily Multiple 1 tab PO DAILY 12/16/14 09/20/24 tablet) omega-3 fatty acids-fish oil 340 2 ea PO DAILY 12/16/14 09/20/24 mg-1,000 mg capsule (Fish Oil) albuterol sulfate 90 mcg/actuation 2 puff inhalation .Q4 HRS PRN 07/25/15 09/20/24 aerosol inhaler (ProAir HFA) cholecalciferol (vitamin D3) 25 1 tab PO BID 07/25/15 09/20/24 mcg (1,000 unit) tablet omeprazole 10 mg capsule,delayed 20 mg PO DAILY 07/25/15 09/20/24 release gabapentin 300 mg capsule 300 mg PO TID 03/21/21 09/20/24 hydroxyzine HCl 25 mg tablet 25 mg PO QHS 03/21/21 09/20/24 metformin 500 mg tablet,extended 750 mg PO BID 03/21/21 09/20/24 release 24 hr (Glucophage XR) zolpidem 12.5 mg tablet,extended 10 mg PO HS 03/21/21 09/20/24 release,multiphase alpha lipoic acid 300 mg capsule 300 mg PO DAILY 08/15/21 09/20/24 lidocaine 5 % topical patch 1 patch topical DAILY 08/15/21 09/20/24 vitamin B complex (B 1 tab PO DAILY 08/15/21 09/20/24 Complex-Vitamin B12 tablet) rosuvastatin 10 mg tablet (Crestor) 20 mg PO DAILY 10/10/21 09/20/24 levothyroxine 100 mcg tablet 125 mcg PO DAILY 04/25/22 09/20/24 (Synthroid) loratadine 10 mg tablet (Allergy 10 mg PO DAILY 07/25/22 09/20/24 Relief (loratadine)) magnesium oxide 500 mg capsule 500 mg PO DAILY 07/25/22 09/20/24 saxagliptin 2.5 mg tablet (Onglyza) 2.5 mg PO DAILY 01/21/23 09/20/24 exenatide microspheres 2 mg mg subcut 07/22/23 09/20/24 subcutaneous extended release suspension meclizine 25 mg tablet 25 mg PO BID PRN migraine #60 tabs 01/20/24 09/20/24 galcanezumab-gnlm 120 mg/mL 120 mg subcut QMONTH #3 mL 03/23/24 09/20/24 subcutaneous pen injector (Emgality Pen) atogepant 60 mg tablet (Qulipta) 60 mg PO DAILY #90 tabs 09/20/24 09/20/24 sumatriptan succinate 100 mg tablet See Rx Instructions PO .COMPLEX 09/20/24 09/20/24 #14 tabs carvedilol 12.5 mg tablet 25 mg PO BID 09/27/24 Previous Rx's ?Medication ?Instructions ?Recorded meclizine 25 mg tablet 25 mg PO BID PRN migraine #60 tabs 01/20/24 galcanezumab-gnlm 120 mg/mL 120 mg subcut QMONTH #3 mL 03/23/24 subcutaneous pen injector (Emgality Pen) atogepant 60 mg tablet (Qulipta) 60 mg PO DAILY #90 tabs 09/20/24 sumatriptan succinate 100 mg tablet See Rx Instructions PO .COMPLEX 09/20/24 #14 tabs Allergies Allergy/AdvReac Type Severity Reaction Status Date / Time duloxetine HCl (From Allergy Intermediate unknown Unverified 09/20/24 12:59 Cymbalta) sulfamethoxazole (From Allergy Unknown Skin Rash Verified 09/20/24 12:59 Bactrim) trimethoprim (From Bactrim) Allergy Unknown Skin Rash Verified 09/20/24 12:59 mold Allergy Other (See Verified 09/20/24 12:59 Comment) lisinopril AdvReac Severe Anaphylaxis Verified 09/20/24 12:59 codeine AdvReac Intermediate Nausea Unverified 09/20/24 12:59 lactose AdvReac Intermediate Nausea, Unverified 09/20/24 12:59 diarrhea oxycodone (From Percocet) AdvReac Intermediate Nausea Unverified 09/20/24 12:59 acetaminophen (From AdvReac Mild Nausea Unverified 09/20/24 12:59 Darvocet-N) naproxen (From Naprosyn) AdvReac Mild Nausea Unverified 09/20/24 12:59 propoxyphene napsylate (From AdvReac Mild Nausea Unverified 09/20/24 12:59 Darvocet-N) General Stated Complaint: GenMedical HARESH: 3 Exam Narrative Exam Narrative: 1.Const: Well-nourished, Well-developed, appearing stated age 2.Eyes: PERRL, no conjunctival injection, and symmetrical lids. 3.ENT: Atraumatic external nose and ears. Moist MM. Neck: Symmetric, trachea midline, No thyromegaly. 4.CVS: +S1/S2, Peripheral pulses 2+ and equal in all extremities. Brisk capillary refill in all extremities. 5.RESP: Unlabored respiratory effort. Clear to auscultation bilaterally. No wheezes rales or rhonchi 6.GI: Soft, Nontender/Nondistended, No hepatosplenomegaly. No guarding or rebound. 7.MSK: Normocephalic/Atraumatic, Extremities w/o deformity or ttp No cyanosis or clubbing, Normal movement of all extremities 8.Skin: Warm, Dry. No rashes or lesions. 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 Sensation grossly intact, no focal neurologic deficits. 10.Psych: (AAO) x3. Appropriate mood and affect Course Vital Signs Vital signs: Vital Signs Pulse 83 10/01/24 13:28 Respiratory Rate 18 10/01/24 13:28 Blood Pressure 228/87 H 10/01/24 13:28 Pulse Oximetry 98 10/01/24 13:28 Pulse 83 10/01/24 13:28 Respiratory Rate 18 10/01/24 13:28 Blood Pressure 228/87 H 10/01/24 13:28 Blood Pressure Position Sitting 10/01/24 13:28 Pulse Oximetry 98 10/01/24 13:28 Oxygen Delivery Method Room Air 10/01/24 13:28 Oxygen Flow Rate 0 10/01/24 13:28 Pain Level 5 10/01/24 13:28 Medical Decision Making This is a 58-year-old female with a past medical history of hypertension, migraines, kidney disease, fibromyalgia, hypothyroidism, bipolar type I, diabetes mellitus, who presents today for evaluation of hypertension. Patient states that she has chronically been managed for her hypertension, but did not tolerate her NATALIIA inhibitor well, and was switched to carvedilol. She was recently increased from 12.5 mg twice daily to 25 mg twice daily. This morning she went in to see her doctor, and her blood pressure was notably elevated. She was sent home and recommended that she take her morning medication. She did take it at 11, and then checked her blood pressure an hour or so later which was noted to be 201/106. She was then recommended to come in for further assessment. She admits to a very small amount of nonexertional achiness in the left chest which she states is present today but otherwise slightly new compared to normal. No history of cardiac pathology stroke or IA. She denies vomiting or diarrhea. She denies headache or neck pain. No other complaints at this time. No weakness or syncope. Physical exam demonstrates reassuring female, vital signs stable aside for her being hypertensive at 228/87. While the pressure certainly is high, I do worry about dropping her pressures too precipitously. We we will monitor closely for the next 20 to 30 minutes to see if her pressures improve on their own. We will evaluate for cardiac etiology which appears otherwise unlikely. We will monitor for these abnormalities, we will recheck the blood pressure shortly and reassess. 3:12 PM Laboratory workup has returned, serial troponins normal, no electrolyte abnormalities of significance, transaminases slightly elevated but at baseline. TSH high but free T4 normal. proBNP normal with no evidence of heart strain. Patient feels well. Repeat neurologic exam shows no deficit. No other concerning abnormalities. Blood pressure now in the high 140s to 150s systolic. No evidence of a hypertensive emergency. Patient shows no evidence to suggest stroke. No evidence of ACS. EKG benign. Patient will be discharged home. Discussed red flags for which to return. I have extensively reviewed the treatment plan and discharge instructions with the patient. I have addressed all patient concerns at this time. The patient was made aware of what symptoms to monitor for that would warrant a return to the emergency department. Discussed the plan with the patient, they demonstrate verbal understanding and agreement with our assessment and plan at this time. The documentation in this chart was dictated using [employer] dictation software. Please excuse any dictation errors. PFSH All Active Problems (Updated 10/01/24 @ 15:04 by Jerman Marrero DO) Hypertension (Chronic) Migraine headache without aura (Acute) Atypical migraine (Acute) History of reconstruction of anterior cruciate ligament tear (Acute 09/28/21) ACL reconstruction with graft link soft tissue allograft Status post arthroscopy of left knee (Acute 09/28/21) s/p ACL reconstruction, lateral meniscus repair, synovectomy Dizziness (Acute) Pressure in head (Acute) Cervical vertigo (Acute) Benign paroxysmal positional vertigo (Acute) Acute lateral meniscus tear of left knee (Acute 02/01/21) Left ACL tear (Acute 02/01/21) Nonalcoholic steatohepatitis (Acute) Renal insufficiency (Chronic) Hypomagnesemia (Acute) Injury of knee, left (Acute) Abdominal cramping (Acute) Syncope (Chronic) Medical History Allergic rhinitis Cyclothymic disorder Allergic asthma Hyperlipidemia, mixed GERD (gastroesophageal reflux disease) Insomnia Obesity Fibromyalgia Type 2 diabetes mellitus Back pain, chronic Fatigue Knee pain, left Right thyroid nodule Vertigo Palpitations Pt. had negative workup Acute medial meniscus tear of left knee (02/01/21) PTSD (post-traumatic stress disorder) Pt. denies anything as trigger Asthma Hypertension Fibromyalgia muscle pain Obesity (BMI 30.0-34.9) Diabetes type 2, uncontrolled Hypothyroidism Hyperlipidemia Bipolar 1 disorder, depressed Surgical History H/O rotator cuff surgery Right H/O tubal ligation S/P tubal ligation Colonoscopy - [facility] (07/22/16) Social History Smoking/Tobacco Use Status: Never Smoking risk assessment performed?: Yes Alcohol Intake: never Drug use: Never Substance use type: does not use Current gender identity: female Do you feel safe at home: Yes Do you feel safe in your relationship?: Yes
[2024-10-01 14:01] LABS: Abs Immature Grans 0.02 10^3/uL (0.0-0.06); Absolute Basophil Count 0.05 10^3/uL (0.0-0.2); Absolute Eosinophil Count 0.19 10^3/uL (0.0-0.7); Absolute Lymphocyte Count 1.32 10^3/uL (1.2-3.4); Absolute Monocyte Count 0.28 10^3/uL (0.1-0.8); Eosinophils % 3.6 %; HCT 38.6 % (36.0-46.0); HGB 13.5 g/dL (11.2-15.7); Immature Grans % 0.4 %; Lymphocytes % 25.1 %; MCH 30.3 pg (27.0-33.0); MCV 87 fL (80-95); Monocytes % 5.3 %; Neutrophils % 64.6 %; Platelet Count 305 10^3/uL (130-400); RBC 4.46 10^6/uL (3.93-5.22); RDW 12.2 % (11.7-14.6); RDW-SD 38.6 fL; WBC 5.26 10^3/uL (4.4-10.8)
[2024-10-01 14:31] LABS: ALT 95 U/L (14-59); AST 42 U/L (15-37); Albumin 4.7 g/dL (3.4-5.0); Alkaline Phosphatase 87 U/L (46-116); Anion Gap 12.6 mmol/L (3-11); BUN 16 mg/dL (7-18); Bilirubin, Total 0.3 mg/dL (0.2-1.0); CO2 27.4 mmol/L (21.0-32.0); CREATININE 0.8 mg/dL (0.55-1.02); Calcium 9.8 mg/dL (8.5-10.1); Chloride 103 mmol/L (98-107); Estimated GFR 85.35 (mL/min/1.73m2); Glucose 165 mg/dL (74-106); NT-proBNP 10 pg/mL (<300); Potassium 4.3 mmol/L (3.5-5.1); Sodium 143 mmol/L (136-145); TSH (W/Ref FT4) 0.34 uIU/mL (0.36-3.74); Total Protein 7.6 g/dL (6.4-8.2); Troponin I 6 ng/L (<or=51)
[2024-10-01 14:34] LABS: PTT Activated 24.5 sec (20.6-30.2); Prothrombin Time 10.1 sec (9.1-11.1)
[2024-10-01 14:57] LABS: FREE T4 1.09 ng/dL (0.76-1.46)
[2024-10-01 15:00] LABS: Troponin I 6 ng/L (<or=51)
== END 2024-10-01 15:12 | disposition home or self-care (01) ==
PROVIDERS: Emergency Provider Student in an Organized Health Care Education/Training Program; PCP Physician Assistant Medical
DX: R51.9 Headache, unspecified (principal); I10 Essential (primary) hypertension; E78.5 Hyperlipidemia, unspecified; E11.9 Type 2 diabetes mellitus without complications; E03.9 Hypothyroidism, unspecified; Z79.84 Long term (current) use of oral hypoglycemic drugs
CPT/HCPCS: 80053; 93005; 99283; 83880; 84439; 84443; 84484; 85025; 85610; 85730; 93010

== ENCOUNTER 2024-10-04 15:31 | Emergency (ER) | payer MEDICARE, MEDICAID, SELFPAY ==
[2024-10-04] VITALS (52 sets, daily range): BP systolic 176–209; BP diastolic 86–94; PULSE 74–87; RESP 10–26; TEMP 36.8; O2SAT 93–98
--- NOTE | 2024-10-04 16:00 | RT.EKG_ITS ---
APPROVED REPORT Exam: Resting ECG Reason for Exam: Chest pain Patient Location: E HR:73 bpm ECG Measurements Heart Rate [address] 153 P 40 QRSd 98 QRS -12 QT 386 T 17 QTc 424 Conclusion Sinus rhythm, rate 73 No interval abnormalities No STEMI No significant changes from priors
[2024-10-04 16:36] LABS: Absolute Basophil Count 0.04 10^3/uL (0.0-0.2); Absolute Eosinophil Count 0.21 10^3/uL (0.0-0.7); Absolute Lymphocyte Count 1.88 10^3/uL (1.2-3.4); Absolute Monocyte Count 0.26 10^3/uL (0.1-0.8); Absolute Neutrophil Count 2.55 10^3/uL (1.2-6.7); Basophils % 0.8 %; Eosinophils % 4.3 %; HCT 40.3 % (36.0-46.0); HGB 13.7 g/dL (11.2-15.7); Lymphocytes % 38.1 %; MCH 29.5 pg (27.0-33.0); MCV 87 fL (80-95); MPV 8.9 fL (8.0-11.0); Monocytes % 5.3 %; Neutrophils % 51.5 %; Platelet Count 341 10^3/uL (130-400); RBC 4.65 10^6/uL (3.93-5.22); RDW 12.2 % (11.7-14.6); RDW-SD 38.4 fL; WBC 4.94 10^3/uL (4.4-10.8)
[2024-10-04 16:56] LABS: ALT 97 U/L (14-59); AST 35 U/L (15-37); Albumin 4.7 g/dL (3.4-5.0); Alkaline Phosphatase 84 U/L (46-116); Anion Gap 10.4 mmol/L (3-11); BUN 15 mg/dL (7-18); Bilirubin, Total 0.2 mg/dL (0.2-1.0); CO2 28.6 mmol/L (21.0-32.0); CREATININE 0.7 mg/dL (0.55-1.02); Calcium 9.4 mg/dL (8.5-10.1); Chloride 103 mmol/L (98-107); Estimated GFR 100.19 (mL/min/1.73m2); Glucose 125 mg/dL (74-106); Lipase 393 U/L (<78); Magnesium 1.9 mg/dL (1.8-2.4); Potassium 4.2 mmol/L (3.5-5.1); Sodium 142 mmol/L (136-145); Total Protein 7.8 g/dL (6.4-8.2); Troponin I 5 ng/L (<or=51)
[2024-10-04 17:47] LABS: Troponin I 5 ng/L (<or=51)
[2024-10-04 18:47] LABS: Bilirubin Negative (Negative); Blood Negative (Negative); Clarity Clear (Clear); Glucose Negative (Negative); Ketones Negative (Negative); Leukocyte Esterase Negative (Negative); Nitrite Negative (Negative); Specific Gravity 1.015 (1.005-1.025); Urobilinogen 0.2 mg/dL (Up to 0.2)
[2024-10-04 18:53] LABS: Bacteria Few HPF (Negative); Epithelial Cells Negative HPF (Negative); RBC Negative HPF (0-2); WBC 0-2 HPF (0-5)
[2024-10-04 18:54] LABS: C & S Indicated? No; Casts Negative LPF (Negative); Crystals Rare Amorphous HPF (Negative); Mucus Negative (Negative)
--- NOTE | 2024-10-04 22:55 | W.ED.GENAD ---
Discharge Plan Disposition Patient Disposition: Home Discharge Details Clinical Impression: Elevated lipase, Elevated blood pressure reading Primary Care Provider: Ramona Cruz ED Provider: Carlee Matson Home Meds and New Rx's Prescriptions: No Action exenatide microspheres 2 mg suspension,extended rel recon subcut meclizine 25 mg tablet 25 mg PO BID PRN (Reason: migraine) Qty: 60 2RF loratadine [Allergy Relief (loratadine)] 10 mg tablet 10 mg PO DAILY magnesium oxide 500 mg capsule 500 mg PO DAILY saxagliptin [Onglyza] 2.5 mg tablet 2.5 mg PO DAILY Qulipta 60 mg tablet 60 mg PO DAILY Qty: 90 3RF multivitamin [Daily Multiple] 1 EACH tablet 1 tab PO DAILY Fish Oil 1 EACH capsule 2 ea PO DAILY lurasidone [Latuda] 40 MG tablet 40 mg PO DAILY metformin [Glucophage XR] 500 mg tablet extended release 24 hr 750 mg PO BID gabapentin 300 mg capsule 300 mg PO TID zolpidem 12.5 mg tablet,ext release multiphase 10 mg PO HS vitamin B complex [B Complex-Vitamin B12] Tablet 1 tab PO DAILY alpha lipoic acid 300 mg capsule 300 mg PO DAILY lidocaine 5 % adhesive patch,medicated 1 patch topical DAILY Rx Instructions: leave on most painful area for up to 12 hrs rosuvastatin [Crestor] 10 mg tablet 20 mg PO DAILY levothyroxine [Synthroid] 100 mcg tablet 125 mcg PO DAILY carvedilol 12.5 mg tablet 25 mg PO BID Rx Instructions: must administer with a meal/food omeprazole 10 MG capsule,delayed release(DR/EC) 20 mg PO DAILY albuterol sulfate [ProAir HFA] 8.5 GM HFA aerosol inhaler 2 puff Inhalation .Q4 HRS PRN Patient Comments: 07/22/16 PRN only. PG cholecalciferol (vitamin D3) 1,000 UNITS tablet 1 tab PO BID Discharge Instructions Instructions: Lipase Blood Test Additional Instructions: please increased clear liquids and drink at least 64 oz of water daily try to cut down on simple sugars and carbohydrates as much as possible this will help your pancrease settle down have your lipase and blood pressure rechecked on check your blood pressure again if your abdominal pain becomes worse, you develop fever or chills, or should any new concerns arise, please return for imaging and reassessment stop the Mounjaro and talk with your doctor regarding whether or not additional blood pressure medication may be indicated Referrals: Ramona Cruz PA [Primary Care Provider, Medicine] Discharge Data Discharge Date/Time-TO BE ENTERED AT DEPARTURE: 10/04/24 18:40 HPI General Date/Time Provider Initiated Documentation: 10/04/24 15:52. HPI Narrative: 58-year-old female with hypertension. Reports high BP and intermittent chest pressure for a week. Started BP medication a week ago without improvement. Experiencing home stressors. Compliant with medications. No alcohol or tobacco use. Reports intermittent epigastric pain and abdominal discomfort. No fever, chills, or trauma. Related Data Home Medications ?Medication ?Instructions ?Recorded ?Confirmed lurasidone 40 mg tablet (Latuda) 40 mg PO DAILY 12/16/14 10/04/24 multivitamin (Daily Multiple 1 tab PO DAILY 12/16/14 10/04/24 tablet) omega-3 fatty acids-fish oil 340 2 ea PO DAILY 12/16/14 10/04/24 mg-1,000 mg capsule (Fish Oil) albuterol sulfate 90 mcg/actuation 2 puff inhalation .Q4 HRS PRN 07/25/15 10/04/24 aerosol inhaler (ProAir HFA) cholecalciferol (vitamin D3) 25 1 tab PO BID 07/25/15 10/04/24 mcg (1,000 unit) tablet omeprazole 10 mg capsule,delayed 20 mg PO DAILY 07/25/15 10/04/24 release gabapentin 300 mg capsule 300 mg PO TID 03/21/21 10/04/24 metformin 500 mg tablet,extended 750 mg PO BID 03/21/21 10/04/24 release 24 hr (Glucophage XR) zolpidem 12.5 mg tablet,extended 10 mg PO HS 03/21/21 10/04/24 release,multiphase alpha lipoic acid 300 mg capsule 300 mg PO DAILY 08/15/21 10/04/24 lidocaine 5 % topical patch 1 patch topical DAILY 08/15/21 10/04/24 vitamin B complex (B 1 tab PO DAILY 08/15/21 10/04/24 Complex-Vitamin B12 tablet) rosuvastatin 10 mg tablet (Crestor) 20 mg PO DAILY 10/10/21 10/04/24 levothyroxine 100 mcg tablet 125 mcg PO DAILY 04/25/22 10/04/24 (Synthroid) loratadine 10 mg tablet (Allergy 10 mg PO DAILY 07/25/22 10/04/24 Relief (loratadine)) magnesium oxide 500 mg capsule 500 mg PO DAILY 07/25/22 10/04/24 saxagliptin 2.5 mg tablet (Onglyza) 2.5 mg PO DAILY 01/21/23 10/04/24 exenatide microspheres 2 mg mg subcut 07/22/23 09/20/24 subcutaneous extended release suspension meclizine 25 mg tablet 25 mg PO BID PRN migraine #60 tabs 01/20/24 10/04/24 atogepant 60 mg tablet (Qulipta) 60 mg PO DAILY #90 tabs 09/20/24 10/04/24 carvedilol 12.5 mg tablet 25 mg PO BID 09/27/24 10/04/24 Previous Rx's ?Medication ?Instructions ?Recorded meclizine 25 mg tablet 25 mg PO BID PRN migraine #60 tabs 01/20/24 atogepant 60 mg tablet (Qulipta) 60 mg PO DAILY #90 tabs 09/20/24 Allergies Allergy/AdvReac Type Severity Reaction Status Date / Time duloxetine HCl (From Allergy Intermediate unknown Unverified 10/04/24 16:08 Cymbalta) sulfamethoxazole (From Allergy Unknown Skin Rash Verified 10/04/24 16:08 Bactrim) trimethoprim (From Bactrim) Allergy Unknown Skin Rash Verified 10/04/24 16:08 mold Allergy Other (See Verified 10/04/24 16:08 Comment) lisinopril AdvReac Severe Anaphylaxis Verified 10/04/24 16:08 codeine AdvReac Intermediate Nausea Unverified 10/04/24 16:08 lactose AdvReac Intermediate Nausea, Unverified 10/04/24 16:08 diarrhea oxycodone (From Percocet) AdvReac Intermediate Nausea Unverified 10/04/24 16:08 acetaminophen (From AdvReac Mild Nausea Unverified 10/04/24 16:08 Darvocet-N) naproxen (From Naprosyn) AdvReac Mild Nausea Unverified 10/04/24 16:08 propoxyphene napsylate (From AdvReac Mild Nausea Unverified 10/04/24 16:08 Darvocet-N) General Stated Complaint: Chest Pain HARESH: 3 Exam Narrative Exam Narrative: General Appearance: Alert and oriented, nontoxic. Vital signs: Within normal limits. HEENT: PERRLA, benign funduscopic exam, no peripheral vision change. Respiratory: Lungs clear. Cardiovascular: Regular rate, no peripheral edema. Gastrointestinal: Mild epigastric and LUQ tenderness, no rebound or guarding. Benign abdominal exam. Skin: Warm and dry, no rash. Neurological: Alert and oriented x4, GCS 15, CN II-XII intact, mild steady gait, following commands. Course Vital Signs Vital signs: Vital Signs Temperature 36.8 C 10/04/24 15:45 Pulse 87 10/04/24 15:45 Respiratory Rate 18 10/04/24 15:45 Blood Pressure 195/91 H 10/04/24 15:45 Pulse Oximetry 98 10/04/24 15:45 Temperature 36.8 C 10/04/24 16:06 Pulse 80 10/04/24 18:38 Respiratory Rate 16 10/04/24 18:38 Respiratory Effort Normal 10/04/24 16:25 Respiratory Depth Normal 10/04/24 15:57 Respiratory Pattern Normal 10/04/24 15:57 Blood Pressure 188/87 H 10/04/24 18:38 Blood Pressure Mean 122 10/04/24 16:30 Blood Pressure Position Sitting 10/04/24 16:06 Pulse Oximetry 95 10/04/24 18:38 Oxygen Delivery Method Room Air 10/04/24 16:06 Oxygen Flow Rate 0 10/04/24 16:06 Pain Level 6 10/04/24 18:38 Lab/Test Results Lab/Test Results: Laboratory Tests Range/Units 10/04/24 10/04/24 10/04/24 16:23 17:25 18:24 WBC (4.4-10.8) 10^3/uL 4.94 RBC (3.93-5.22) 10^6/uL 4.65 Hgb (11.2-15.7) g/dL 13.7 Hct (36.0-46.0) % 40.3 MCV (80-95) fL 87 MCH (27.0-33.0) pg 29.5 MCHC (32.0-36.0) % 34.0 RDW (11.7-14.6) % 12.2 Plt Count (130-400) 10^3/uL 341 MPV (8.0-11.0) fL 8.9 Immature Gran % % 0.0 Neutrophils % % 51.5 Lymphocytes % % 38.1 Monocytes % % 5.3 Eosinophils % % 4.3 Basophils % % 0.8 Nucleated RBC % (0.0-0.3) % 0.0 Absolute Neutrophils (1.2-6.7) 10^3/uL 2.55 Absolute Lymphocytes (1.2-3.4) 10^3/uL 1.88 Absolute Monocytes (0.1-0.8) 10^3/uL 0.26 Absolute Eosinophils (0.0-0.7) 10^3/uL 0.21 Absolute Basophils (0.0-0.2) 10^3/uL 0.04 Sodium (136-145) mmol/L 142 Potassium (3.5-5.1) mmol/L 4.2 Chloride (98-107) mmol/L 103 Carbon Dioxide (21.0-32.0) mmol/L 28.6 Anion Gap (3-11) mmol/L 10.4 BUN (7-18) mg/dL 15 Creatinine (0.55-1.02) mg/dL 0.7 Est GFR (CKD-EPI 2020) (mL/min/1.73m2) 100.19 Glucose (74-106) mg/dL 125 H Calcium (8.5-10.1) mg/dL 9.4 Magnesium (1.8-2.4) mg/dL 1.9 Total Bilirubin (0.2-1.0) mg/dL 0.2 AST (15-37) U/L 35 ALT (14-59) U/L 97 H Alkaline Phosphatase (46-116) U/L 84 Troponin I (<or=51) ng/L 5 5 Total Protein (6.4-8.2) g/dL 7.8 Albumin (3.4-5.0) g/dL 4.7 Lipase (<78) U/L 393 H Urine Color (Yellow) Yellow Urine Clarity (Clear) Clear Urine pH (5-8) 7.0 Ur Specific [place] (1.005-1.025) 1.015 Urine Protein (Neg-Trace) mg/dL 30 H Urine Ketones (Negative) mg/dL Negative Urine Blood (Negative) Negative Urine Nitrite (Negative) Negative Urine Bilirubin (Negative) Negative Urine Urobilinogen (Up to 0.2) mg/dL 0.2 Ur Leukocyte Esterase (Negative) Negative Urine RBC (0-2) HPF Negative Urine WBC (0-5) HPF 0-2 Ur Epithelial Cells (Negative) HPF Negative Urine Crystals (Negative) HPF Rare Amorphous Urine Bacteria (Negative) HPF Few Urine Casts (Negative) LPF Negative Urine Mucus (Negative) Negative Ur Culture Indicated? No Urine Glucose (Negative) mg/dL Negative Range/Units 10/04/24 19:10 WBC (4.4-10.8) 10^3/uL RBC (3.93-5.22) 10^6/uL Hgb (11.2-15.7) g/dL Hct (36.0-46.0) % MCV (80-95) fL MCH (27.0-33.0) pg MCHC (32.0-36.0) % RDW (11.7-14.6) % Plt Count (130-400) 10^3/uL MPV (8.0-11.0) fL Immature Gran % % Neutrophils % % Lymphocytes % % Monocytes % % Eosinophils % % Basophils % % Nucleated RBC % (0.0-0.3) % Absolute Neutrophils (1.2-6.7) 10^3/uL Absolute Lymphocytes (1.2-3.4) 10^3/uL Absolute Monocytes (0.1-0.8) 10^3/uL Absolute Eosinophils (0.0-0.7) 10^3/uL Absolute Basophils (0.0-0.2) 10^3/uL Sodium (136-145) mmol/L Potassium (3.5-5.1) mmol/L Chloride (98-107) mmol/L Carbon Dioxide (21.0-32.0) mmol/L Anion Gap (3-11) mmol/L BUN (7-18) mg/dL Creatinine (0.55-1.02) mg/dL Est GFR (CKD-EPI 2020) (mL/min/1.73m2) Glucose (74-106) mg/dL Calcium (8.5-10.1) mg/dL Magnesium (1.8-2.4) mg/dL Total Bilirubin (0.2-1.0) mg/dL AST (15-37) U/L ALT (14-59) U/L Alkaline Phosphatase (46-116) U/L Troponin I (<or=51) ng/L Cancelled Total Protein (6.4-8.2) g/dL Albumin (3.4-5.0) g/dL Lipase (<78) U/L Urine Color (Yellow) Urine Clarity (Clear) Urine pH (5-8) Ur Specific [place] (1.005-1.025) Urine Protein (Neg-Trace) mg/dL Urine Ketones (Negative) mg/dL Urine Blood (Negative) Urine Nitrite (Negative) Urine Bilirubin (Negative) Urine Urobilinogen (Up to 0.2) mg/dL Ur Leukocyte Esterase (Negative) Urine RBC (0-2) HPF Urine WBC (0-5) HPF Ur Epithelial Cells (Negative) HPF Urine Crystals (Negative) HPF Urine Bacteria (Negative) HPF Urine Casts (Negative) LPF Urine Mucus (Negative) Ur Culture Indicated? Urine Glucose (Negative) mg/dL Medical Decision Making Lipase mildly elevated at 369. Negative troponins. Initial Assessment: 58-year-old female with hypertension and intermittent chest pressure. Reports intermittent vision changes clearing with blinking. No headache or current vision changes. Mild intermittent epigastric and abdominal pain without fever, chills, or trauma. Differential Diagnosis: - Hypertensive urgency: BP 188/87, no hypertensive emergency signs, negative troponins. Monitor BP, follow-up with PCP. - Pancreatitis: Mildly elevated lipase 369, recent start of Mounjaro. Discontinue Mounjaro, increase fluids, recheck lipase . ED Course: - Basic labs ordered for epigastric pain. - Lipase elevated at 369. - Discontinued Mounjaro. - Advised increased fluid intake to at least 8 glasses of water daily. - Stable for discharge. Final Assessment: Evaluated for hypertension and epigastric pain. Labs showed mildly elevated lipase. No hypertensive emergency signs. Discontinued Mounjaro, advised increased fluid intake. Stable for discharge with follow-up. Clinical Impression: - Hypertension - Epigastric pain Disposition: - Discharge: Home, stable condition, mildly elevated BP. Return if abdominal pain worsens, or if experiencing nausea, vomiting, or symptom exacerbation. - Follow-Up: Recheck lipase . Outpatient follow-up with PCP. [facility] All Active Problems (Updated 10/04/24 @ 18:29 by ELIZABETH Riddle) Elevated blood pressure reading (Acute) Elevated lipase (Acute) Hypertension (Chronic) Migraine headache without aura (Acute) Atypical migraine (Acute) History of reconstruction of anterior cruciate ligament tear (Acute 09/28/21) ACL reconstruction with graft link soft tissue allograft Status post arthroscopy of left knee (Acute 09/28/21) s/p ACL reconstruction, lateral meniscus repair, synovectomy Dizziness (Acute) Pressure in head (Acute) Cervical vertigo (Acute) Benign paroxysmal positional vertigo (Acute) Acute lateral meniscus tear of left knee (Acute 02/01/21) Left ACL tear (Acute 02/01/21) Nonalcoholic steatohepatitis (Acute) Renal insufficiency (Chronic) Hypomagnesemia (Acute) Injury of knee, left (Acute) Abdominal cramping (Acute) Syncope (Chronic) Medical History Allergic rhinitis Cyclothymic disorder Allergic asthma Hyperlipidemia, mixed GERD (gastroesophageal reflux disease) Insomnia Obesity Fibromyalgia Type 2 diabetes mellitus Back pain, chronic Fatigue Knee pain, left Right thyroid nodule Vertigo Palpitations Pt. had negative workup Acute medial meniscus tear of left knee (02/01/21) PTSD (post-traumatic stress disorder) Pt. denies anything as trigger Asthma Hypertension Fibromyalgia muscle pain Obesity (BMI 30.0-34.9) Diabetes type 2, uncontrolled Hypothyroidism Hyperlipidemia Bipolar 1 disorder, depressed Surgical History H/O rotator cuff surgery Right H/O tubal ligation S/P tubal ligation Colonoscopy - MAC (07/22/16) Social History Smoking/Tobacco Use Status: Never Smoking risk assessment performed?: Yes Alcohol Intake: never Drug use: Never Substance use type: does not use Current gender identity: female Do you feel safe at home: Yes Do you feel safe in your relationship?: Yes
== END 2024-10-04 18:40 | disposition home or self-care (01) ==
PROVIDERS: Emergency Provider Physician Assistant; PCP Physician Assistant Medical
DX: R74.8 Abnormal levels of other serum enzymes (principal); I10 Essential (primary) hypertension; E11.9 Type 2 diabetes mellitus without complications; E78.5 Hyperlipidemia, unspecified; Z79.84 Long term (current) use of oral hypoglycemic drugs
CPT/HCPCS: 80053; 82962; 83690; 93005; 99284; 81003; 81015; 83735; 84484; 85025; 93010; 99283

== ENCOUNTER 2024-10-15 14:39 | Outpatient (CLI) | payer MEDICARE, MEDICAID, SELFPAY ==
[2024-10-15 15:00] LABS: Lipase 64 U/L (<78)
== END 2024-10-15 14:40 | disposition home or self-care (01) ==
LOC: LBO 14:39
PROVIDERS: PCP Physician Assistant Medical; Visit Provider Family Medicine
DX: R74.8 Abnormal levels of other serum enzymes (principal)
CPT/HCPCS: 36415; 83690

== ENCOUNTER → 2024-11-11 12:26 | Outpatient (BNVA) | payer MEDICARE, MEDICAID, SELFPAY | PROVIDERS: PCP Physician Assistant Medical; Referring Provider Physician Assistant Medical; Visit Provider Nurse Practitioner Adult Health | DX: G43.009 Migraine without aura, not intractable, without status migrainosus (principal); G44.40 Drug-induced headache, not elsewhere classified, not intractable | CPT/HCPCS: 99214 ==

== ENCOUNTER → 2024-11-24 10:22 | Outpatient (BNVA) | payer MEDICARE, MEDICAID, SELFPAY | PROVIDERS: PCP Physician Assistant Medical; Referring Provider Physician Assistant Medical; Visit Provider Student in an Organized Health Care Education/Training Program | DX: M75.101 Unspecified rotator cuff tear or rupture of right shoulder, not specified as traumatic (principal); E11.59 Type 2 diabetes mellitus with other circulatory complications; I10 Essential (primary) hypertension; J45.909 Unspecified asthma, uncomplicated | CPT/HCPCS: 99213 ==

== ENCOUNTER 2024-12-20 19:36 | Outpatient (REF) | payer MEDICARE, MEDICAID, SELFPAY ==
[2024-12-20 19:41] LABS: Hemoglobin A1C 6.6 % (<5.7)
[2024-12-20 19:50] LABS: TSH (W/Ref FT4) 0.41 uIU/mL (0.36-3.74)
== END 2024-12-20 19:37 | disposition home or self-care (01) ==
LOC: NCHCN 19:36
PROVIDERS: PCP Physician Assistant Medical; Visit Provider Physician Assistant Medical
DX: E11.9 Type 2 diabetes mellitus without complications (principal)
CPT/HCPCS: 83036; 84443

== ENCOUNTER 2025-01-03 15:54 | Outpatient (REF) | payer MEDICARE, MEDICAID, SELFPAY ==
[2025-01-03 17:39] LABS: Anion Gap 7.3 mmol/L (3-11); BUN 16 mg/dL (7-18); CO2 31.7 mmol/L (21.0-32.0); Calcium 9.9 mg/dL (8.5-10.1); Chloride 101 mmol/L (98-107); Estimated GFR 84.82 (mL/min/1.73m2); Glucose 154 mg/dL (74-106); Potassium 4.2 mmol/L (3.5-5.1); Sodium 140 mmol/L (136-145)
== END 2025-01-03 15:55 | disposition home or self-care (01) ==
LOC: NCHCN 15:54
PROVIDERS: PCP Physician Assistant Medical; Visit Provider Physician Assistant Medical
DX: E11.9 Type 2 diabetes mellitus without complications (principal)
CPT/HCPCS: 80048

== ENCOUNTER → 2025-01-04 10:08 | Outpatient (BNVA) | payer MEDICARE, MEDICAID, SELFPAY | PROVIDERS: PCP Physician Assistant Medical; Referring Provider Physician Assistant Medical; Visit Provider Student in an Organized Health Care Education/Training Program | DX: M75.101 Unspecified rotator cuff tear or rupture of right shoulder, not specified as traumatic (principal) | CPT/HCPCS: 99214 ==

== ENCOUNTER → 2025-01-17 12:59 | Outpatient (BNVA) | payer MEDICARE, MEDICAID, SELFPAY | PROVIDERS: PCP Physician Assistant Medical; Referring Provider Physician Assistant Medical; Visit Provider Nurse Practitioner Adult Health | DX: G43.009 Migraine without aura, not intractable, without status migrainosus (principal); I10 Essential (primary) hypertension; G47.33 Obstructive sleep apnea (adult) (pediatric) | CPT/HCPCS: 99214 ==

== ENCOUNTER 2025-01-27 03:49 | Outpatient (CLI) | payer MEDICARE, MEDICAID, SELFPAY ==
--- NOTE | 2025-01-27 | DI.MAMMO_ITS ---
Exam(s) MAMMO SCREENING EXAM: MAMMO SCREENING CLINICAL HISTORY: SCREENING,Z12.31 TECHNIQUE: Bilateral full field digital CC and MLO mammographic images were obtained with 3D tomosynthesis and utilizing computer aided detection (CAD). COMPARISON: Comparison is made with prior examinations. FINDINGS: Masses/Architectural Distortion: No suspicious masses or areas of architectural distortion are present. Microcalcifications: No suspicious pleomorphic-type are seen. Skin Thickening/Nipple Retraction: None. IMPRESSION: 1. No significant interval change with no specific features of malignancy noted. 2. Unless there is more urgent need, screening mammography is recommended, as per [place] [employer] guidelines. BI-RADS Category 1 - Negative Breast Density - Category B - There are scattered areas of fibroglandular density. Breast density Category C or D implies that the patient has dense breast tissue. Dense breast tissue can make it harder to find cancer on a mammogram. Dense breast tissue is also associated with an increased risk of breast cancer. This information about the result of the mammogram report was provided to the patient to raise their awareness. Use this report when you speak with the patient about their risks for breast cancer, which includes their family history. At that time, you may recommend additional screening tests (Ultrasound or MRI) as these tests may add significant information. A negative radiographic report should not delay biopsy if a dominant or clinically suspicious mass is present. Up to ten percent of cancers are not identified on mammography. A negative report may reinforce clinical impression. Adenosis and dense breasts may obscure an underlying neoplasm. False positive reports average 6 to 10%. Patient will receive a letter notifying them of these results.
== END 2025-01-27 04:09 ==
LOC: DI 03:49
PROVIDERS: PCP Physician Assistant Medical; Visit Provider Physician Assistant Medical
DX: Z12.31 Encounter for screening mammogram for malignant neoplasm of breast (principal)
CPT/HCPCS: 77063; 77067

== ENCOUNTER 2025-02-10 07:18 | Day surgery (SDC) | payer MEDICARE, MEDICAID, SELFPAY ==
[2025-02-10] VITALS (15 sets, daily range): BP systolic 120–163; BP diastolic 61–107; PULSE 68–78; RESP 13–23; TEMP 36.2–36.5; O2SAT 92–98; BMI 28.3
--- NOTE | 2025-02-10 07:14 | W.PM.DSUDISC ---
Date of service: 02/10/25 Discharge Plan Disposition Patient Disposition: Home Condition: Stable Discharge Details Attending Provider: Jaime Schuster Primary Care Provider: Ramona Cruz Home Meds and New Rx's Prescriptions: New oxycodone 5 mg tablet 5 - 10 mg PO Q4H PRN (Reason: Moderate to severe pain) Qty: 12 0RF Continued meclizine 25 mg tablet 25 mg PO BID PRN (Reason: migraine) Qty: 60 2RF pantoprazole 40 mg tablet,delayed release (DR/EC) 40 mg PO DAILY loratadine [Allergy Relief (loratadine)] 10 mg tablet 10 mg PO DAILY magnesium oxide 500 mg capsule 500 mg PO DAILY saxagliptin [Onglyza] 2.5 mg tablet 5 mg PO DAILY Emgality Pen 120 mg/mL pen injector 120 mg subcut QMONTH Qty: 1 11RF multivitamin [Daily Multiple] 1 EACH tablet 1 tab PO DAILY Fish Oil 1 EACH capsule 2 ea PO DAILY lurasidone [Latuda] 40 MG tablet 40 mg PO HS metformin [Glucophage XR] 500 mg tablet extended release 24 hr 750 mg PO BID gabapentin 300 mg capsule 300 mg PO TID zolpidem 12.5 mg tablet,ext release multiphase 10 mg PO HS vitamin B complex [B Complex-Vitamin B12] Tablet 1 tab PO DAILY alpha lipoic acid 300 mg capsule 300 mg PO DAILY rosuvastatin [Crestor] 10 mg tablet 20 mg PO DAILY levothyroxine [Synthroid] 100 mcg tablet 125 mcg PO DAILY carvedilol 12.5 mg tablet 25 mg PO BID Rx Instructions: must administer with a meal/food albuterol sulfate [ProAir HFA] 8.5 GM HFA aerosol inhaler 2 puff Inhalation .Q4 HRS PRN Patient Comments: 07/22/16 PRN only. PG cholecalciferol (vitamin D3) 1,000 UNITS tablet 1 tab PO BID amlodipine 2.5 mg tablet 2.5 mg PO HS Patient Comments: TAKE ONE TABLET BY MOUTH EVERY DAY riboflavin (vitamin B2) 25 mg tablet 25 mg PO DAILY No Action hydroxyzine HCl 25 mg tablet 25 mg PO DAILY PRN (Reason: anxiety) Patient Comments: TAKE 1-2 TABLETS BY MOUTH NEEDED , MAXIMUM DAILY DOSE = 2 Discharge Instructions Additional Instructions: Surgery: Right shoulder arthroscopy with extensive debridement, biceps tenodesis, subacromial decompression, distal clavicle excision, and rotator cuff repair (supraspinatus) 02/10/25 Activity: For 6 weeks, you should keep your arm at your side in a neutral position at all times except for physical therapy. Do not try to lift or raise your arm using your own muscles. You should use the sling whenever you are out of the house. At home it is best to remove the sling and rest the arm on a pillow at your side or support the operative side with your other hand. You may allow the arm to dangle at your side. A physical therapy prescription will be sent electronically to begin in about 3 weeks. STANDARD protocol. Prescriptions: Please take your already prescribed Zofran as directed for nausea. You may continue your [id number] ibuprofen/ Motrin for mild/moderate pain as needed Oxycodone 5 mg take 1-2 every 4-6 hours as needed for severe pain You may use [id number] Tylenol (acetaminophen) as needed for mild pain. These pain medications may be taken all at once or in different combinations as needed. Also, recommend Colace (docusate) as a stool softener as surgery and pain medicine cause constipation. You may try [id number] diphenhydramine (Benadryl) 25-50 mg nightly as a sleep aid Dressings: Remove shoulder bandage after 3 days. Leave the sticky Steri-Strips in place until they fall off or remove them after you shower. Cover the incisions with Band-Aids or leave them open to air. You may shower after 5 days. Follow-up: 10-[address] Schuster You may take off the leg compression stockings this evening at home. You may also leave them on a few days longer if you have a history of leg swelling or edema. Let us know right away if you develop any redness, drainage, fevers, chest pain, or trouble breathing. Do not drink alcohol or drive for at least 24 hours after anesthesia. Please call the office during business hours with any questions or concerns. Stand Alone Forms: Portal Information Discharge Orders Discharge Orders: Discharge Order (Routine); Ordered 02/10/25 Ordered By: Arturo Raza DS: Diagnosis Discharge Diagnosis (1) Right rotator cuff tear: Status: Acute (2) Tendonitis of long head of biceps brachii of right shoulder: Status: Acute (3) Pain in right acromioclavicular joint: Status: Acute (4) Chondromalacia of right shoulder: Status: Acute
--- NOTE | 2025-02-10 07:40 | ROE_ITS ---
Operative Note Operative Note PRE-OP DIAGNOSIS: Right: 1. Rotator cuff tear 2. LHB partial tearing/tendinopathy 3. Bursitis 4. AC joint pain POST-OP DIAGNOSIS: same PROCEDURE: Right: 1. Rotator cuff repair, CPT# 21327. This involved repair of the supraspinatus using anchors and sutures to reattach the rotator cuff back to the footprint of the greater tuberosity. 2. Arthroscopic biceps tenodesis, CPT# 00554. This involved arthroscopically suturing and reattaching the long head of the biceps tendon to the proximal humerus at the superior margin of the bicipital groove with a screw at the correct tension. 3. Extensive debridement, CPT# 70670. This involved using arthroscopic hand instruments, power instruments, and radiofrequency instruments to release the long head of the biceps tendon and debride areas of labral tearing, SLAP tearing, rotator interval capsulitis, superior synovitis, and chondromalacia about the central glenoid working within the glenohumeral joint anteriorly, superiorly and posteriorly. 4. Subacromial decompression with partial acromioplasty, CPT# 60305. This involved using arthroscopic power instruments and a radiofrequency wand to revise a bursectomy and smooth the undersurface of the acromion especially medially toward the AC joint. 5. Arthroscopic distal clavicle excision, CPT# 34698. This involved arthroscopically exposing the underside of the acromioclavicular joint, smoothing out bone spurs, and removing a few millimeters and smoothing the distal clavicle so there was no bone left engaging the acromion or medial rotator cuff. The assistant librarian was medically required in order to help assist in techniques above, which require positioning the arm, holding the arthroscope, and manipulating multiple instruments and sutures at the same time. This cannot be done without the help of an experienced assistant librarian. SURGEON: Jaime Schuster BULK INTAKE WORKER: Arturo Raza ANESTHESIA TYPE: Local By Surgeon, General LMA/ETT and Primary Nerve Block Refer to Anesthesia Record ESTIMATED BLOOD LOSS: 10 PATHOLOGY: none sent COMPLICATIONS: None Patient was transported to: PACU Patient's condition: stable Implants: Arthrex: 4.75mm SwiveLocks x 2 and 5.5 mm x 2 Indications: The patient was diagnosed with the above conditions and appropriately indicated for surgical intervention. Please see complete medical record for details. Findings: Exam under anesthesia: Full range of motion, no biceps deformity or instability Glenohumeral joint: Moderate generalized chondromalacia and russell labral degenerative tearing from anterior through superior SLAP tear to posteriorly. About 50% partial tearing intra-articular segment biceps within the large articular supraspinatus tear, which was thinning to the point of nearly full- thickness more lateral with a few delaminated draped layer still probably intact about the lateral most greater tuberosity. Partial tearing undersurface infraspinatus. Intact subscapularis. Subacromial space: Only mild recurrent bursitis. Significant supraspinatus thinning largely lateral and central with more mac tendon more medial anterior and some partial thinning though not significant infraspinatus. Sharp undersurface impinging medial acromion and irregular distal clavicle. Procedure Description: In the operating room, general anesthesia was induced. Bilateral shoulders were examined. The patient was positioned in the beachchair position. All bony prominences were well-padded. Preoperative antibiotics were administered. The shoulder was prepped and draped in the usual sterile fashion. The correct patient, procedure, and side of the procedure were all verified prior to incision. Starting through the posterior portal a standard complete diagnostic arthroscopy was performed of the glenohumeral joint including inspection of the long head of the biceps, anterior and superior labrum, subscapularis tendon, supraspinatus and infraspinatus tendons, and axillary recess. The glenoid and humeral head cartilage as well as the posterior labrum were inspected from an anterior viewing portal. Significant findings and interventions noted above. Of note the chondromalacia was smooth about the central glenoid with the shaver and the russell labral tearing was trimmed and smoothed with a shaver and then contoured nicely with the radiofrequency wand. Capsulitis synovitis were resected and removed as well. Starting through the posterior portal, the arthroscope was directed into the subacromial space. A lateral 50 yard line lateral portal was created. A combination of power instruments and a radiofrequency ablator were used to debride bursitis anteriorly, posteriorly, and laterally as well as expose and smooth bone spurring on the undersurface of the acromion especially medially where there is inferior bone spurring at the AC joint. The coracoacromial ligam ent was released. The bursectomy was completed viewing laterally and working from posteriorly and the rotator cuff was thoroughly inspected with findings noted above. The anterior portal was redirected towards the undersurface of the AC joint. A shaver and electrocautery device were used to clear soft tissue from the undersurface of the AC joint. The distalmost irregular few millimeters of the distal clavicle was then removed and smoothed. Care was taken to ensure that proper amount of bone was removed and there was no engaging bone left behind especially superiorly. A Jigna cannula was inserted laterally 50 yard line and through this the rotator cuff was carefully inspected and elevated from lateral to medial preserving length of the very thin tendon. The arthroscope was then redirected into the glenohumeral joint and working through an anterior and this lateral portal through the full-thickness rotator cuff the biceps was secured using the loop and tack method with a suture tape FiberLink. The repair sutures withdrawn at the anterior superior lateral passport cannula for later repair of the rotator cuff. Back in the subacromial space, the rotator cuff footprint was thoroughly prepared from both the articular side and bursal side to optimize bone tendon healing and and trimming nonviable thin frayed tendon edge somewhat centrally and posteriorly. This a speed bridge construct was then done starting anterior medial with the undersized punch for soft bone and a 4.75 mm SwiveLock anchor placed with fiber tapes loaded. This anchor also had the biceps tenodesis repair suture nicely repairing the biceps at the superior aspect of the bicipital groove. The knotless extra repair neck is was then shuttled through the biceps tendon using scorpion and back through the anchor eyelet mechanism nicely and additional security and compression to the biceps tendon at this aspect of the bare completing the tenodesis. The posterior medial anchor 4.75 mL is what was placed to FiberTape's. A FiberLink was then used to shuttle the medial repairs tapes through the appropriate margin of the supraspinatus rotator cuff tear. Additional suture tape FiberLink's and central motor placed centrally and then posteriorly to add additional suture tissue fixation and the repair was completed to an anterior and posterior lateral row anchors, which were 5.5 mm due to even softer bone here. There was excellent reduction and compression of the supraspinatus across the prepared greater tuberosity with significant tendon thinning centrally but good tendon along the margins anter iorly posteriorly and medially. The repair was stable through probing and motion testing. The shoulder was drained of arthroscopic fluid. All portal sites were copiously irrigated. These incisions were closed using 3-0 Monocryl in a buried fashion and then covered with Mastisol, Steri-Strips, Xeroform, dry gauze, and ABDs. The dressings were covered and secured with Medipore tape. The operative extremity was placed into a sling for immobilization. The patient awoke from anesthesia without complication and was transferred to the recovery room in a stable condition. Date of Procedure: 02/10/25
[2025-02-10] MEDS: Lactated Ringers 1,000 ML 30 ML IV (08:20)
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
[2025-02-10] MEDS: ceFAZolin 2 GM/50 ML BAG IVPB (09:40)
[2025-02-10] MEDS: TRANEXAMIC ACID/SOD. CHL. 1,000 MG/100 ML BAG 600 MG IVPB (09:50)
--- NOTE | 2025-02-10 10:02 | W.ANESNERVE ---
Nerve Block Single Injection Procedure Date and Time Date Performed: 02/10/25 Procedure Start: 09:07 Location Where Procedure Performed Procedure Location: Day Surgery Unit Reason Performed: Postoperative Analgesia Requesting Provider: Jaime Schuster Timeout Performed Timeout Performed: Yes Monitoring Used ECG, Blood Pressure, SpO2 and See EMR for corresponding vital signs Sterility Sterility: Hand Hygiene, Surgical Cap, Surgical Mask, Sterile Gloves and Chlorhexidine Sedation Given During Procedure Sedation Given (Indicate Dose Given): Versed IV Dose:: 2mg Patient Mental Status Patient Mental Status: Sedate with meaningful communication Nerve Block 1st Nerve Block: Laterality: Right Block Type: Interscalene Ultrasound Image Saved?: Yes Needle / Catheter Used: 100mm SonoPlex II Local Anesthetic Bolus (Indicate Dose Given): Lidocaine used for local infiltration of skin, Injected in 3-5ml increments after negative blood aspiration, Bupivacaine 0.25% Dose:: 10 ml and Exparel Dose:: 10ml Additives (Indicate Dose Given): None Ultrasound: Used to jessica site Nerve Stimulator: Supplement to Ultrasound use and No twitch or parasthesia noted < 0.5 mA Paresthesia: None Procedure Tolerated: No Complications and Patient tolerated well Procedure Outcome: Successful Procedure Comment: Noted muscle twitch at 0.8mA, none at 0.5mA. Good encapsulation of nerve bundle. No paresthesia. Performed By: Brittany Castillo Supervised By: Carrillo Seals
[2025-02-10] MEDS: Bupivacaine 0.25% Pres-Free W/EPI 30 ML VIAL (11:14)
[2025-02-10] MEDS: EPINEPHrine 10 MG/10 ML ML (11:15)
--- NOTE | 2025-02-10 12:36 | W.ANESPOSTOP ---
Postoperative Evaluation Date, Time and Location Date Performed: 02/10/25 Time Performed: 12:18 Patient Location: Day Surgery Unit Vital Signs Most Recent Imported Vital Signs: Most Recent Vital Signs Temp Pulse Resp BP Pulse Ox 36.4 C L 73 18 120/61 94 02/10/25 12:18 02/10/25 12:18 02/10/25 12:18 02/10/25 12:18 02/10/25 12:18 Pain Score Most Recent Pain Score: Most Recent Pain Score Pain Level 0 02/10/25 12:18 Assessment Mental Status: Awake (Alert & Oriented to Patient Baseline) Airway and Respiratory Function: Patent airway with normal (patient baseline) respiratory exam Cardiovascular Function: Hemodynamically Stable Hydration Status: Adequately Hydrated Nausea & Vomiting: No Nausea or Vomiting Pain: Pt. Denies Any Pain Peripheral Nerve Block: Regional nerve block not resolved at time of post operative discharge
== END 2025-02-10 13:49 | disposition home or self-care (01) ==
LOC: SUR 07:19
PROVIDERS: PCP Physician Assistant Medical; Visit Provider Student in an Organized Health Care Education/Training Program
PROC: (CPT 29827; principal; 2025-02-10 08:45)
DX: M75.101 Unspecified rotator cuff tear or rupture of right shoulder, not specified as traumatic (principal); M75.21 Bicipital tendinitis, right shoulder; M25.511 Pain in right shoulder; M94.211 Chondromalacia, right shoulder
CPT/HCPCS: 29827; 29828; 29823; 29826; 29824; 64415; J0665; J0666; J0690; J1100; J1885; J2250; J2371; J2405; J2704

== ENCOUNTER → 2025-02-22 09:58 | Outpatient (BNVA) | payer MEDICARE, MEDICAID, SELFPAY | PROVIDERS: PCP Physician Assistant Medical; Referring Provider Physician Assistant Medical; Visit Provider Student in an Organized Health Care Education/Training Program | DX: Z47.89 Encounter for other orthopedic aftercare (principal); M75.101 Unspecified rotator cuff tear or rupture of right shoulder, not specified as traumatic | CPT/HCPCS: 99024 ==